=== PATIENT | female | born 1935 | race Caucasian/White ===

== ENCOUNTER → 2017-04-09 | Outpatient (CLI) | payer OTHER ==
[~2017-04-09] MED LIST: ACETAMINOPHEN-1 EAC1 PO; ACETAMINOPHEN325 M1 PO; AMBIEN 10 MG TA10 MG PO; AMBIEN 5 MG TABL5 M1 PO; B-12500 MCG PO; BENICAR20 MG; CELEXA 20 MG TA20 MG PO; CELEXA10 MG PO; CHLORTHALIDONE; CHLORTHALIDONE25 MG PO; CIPRO250 M1 PO; CIPRO500 MG PO; CIPROFLOXACIN500 M1 PO; CLONIDINE PO; CLONIDINE0.1 PO; COLACE100 MG PO; DOXYCYCLINE 10100 MG PO; FENTANYL PA50 MCG/HR TRANSDERM; FLAGYL500 MG PO; FLURBIPROFEN100 MG PO; HYDROCODON-ACE1 EAC2 PO; HYDROCODON-ACE1 EAC8; IRON325 PO; KEFLEX500 MG PO; KLOR-CON; KLOR-CON 1010 MEQ PO; LASIX 20 MG TAB20 MG PO; LEVAQUIN 500 M500 M2 PO; LEVOTHYROXIN0.025 MG PO; LEXAPRO20 MG PO; LISINOPRIL20 MG PO; LOPRESSOR; LOPRESSOR50 PO; LOSARTAN-HCTZ1 EAC3 PO; MEDROLDOSEPACK PO; MIRALAX17 GM PO; MIRALAX255 GM PO; MUCINEX DM ER1 EAC1 PO; Metoprolol Tartrate PO; NEURONTIN 300300 M1 PO; NORCO 10-325 T1 EACH PO; NORVASC 5 MG TAB5 MG PO; NORVASC5 MG PO; ONDANSETRON HCL4 M2 PO; PAMELOR; PANTOPRAZOLE SO40 M1 PO; PHENERGAN 25 MG25 M1 PO; PROZAC; REMERON15 MG PO; SENOKOT-S1 TA2 PO; TOPROL XL50 MG; TRANSDERM-SCOP1 EACH TRANSDERM; VITAMIN B-121000 MCG PO; VITAMIN D1000 UNI1 PO; VITAMIN D1000 UNIT PO; VITAMINC500 PO; XANAX 0.25 MG0.25 MG PO; XANAX 0.5 MG0.5 MG PO; ZESTORETIC 20-1 EAC3 PO; ZOCOR; ZOCOR20 MG PO; ZOFRAN ODT4 MG PO; ZOLPIDEM TARTRA10 MG PO
--- NOTE | 2017-04-15 08:48 | PAINCON ---
[address] [address] PAIN MANAGEMENT CONSULTATION Name: LANCERENNY F Room: [facility] Miller#: [id number] Admission: 04/09/17 Attend Phys: Garo Fields MD Discharge: Date of : 39 Report #: [id number] THIS REPORT FOR: //name// CC: Marisol Francois DATE OF SERVICE: 04/09/2017 CHIEF COMPLAINT: "I have been to the Emergency Room twice since I saw you last." FOLLOWUP HISTORY: The patient is a 81-year-old female who has been followed in the pain clinic because of chronic pain from spinal stenosis. She states that she went to the Emergency Room earlier in March. At that time, she had gone to dinner. After return from dinner, she had an upset stomach. She was experiencing cramping sensation. After going to the bathroom to have a BM, she was unable to remember what happened. Her roommate found her sitting on the toilet. She was nauseated and sweaty. She was then taken to the Emergency Room. At that time, a workup was done and her pacemaker was evaluated, did not feel that was the problem. After remaining for an appropriate amount of time without any significant findings, the patient was released home. A CT of her head showed no acute changes. CT of the abdomen showed only left colon wall thickening suggesting colitis. The patient went to see her primary care physician. At that time, her blood pressure was noted to be quite elevated at systolic from about 210. She was then referred to the Emergency Room again. After evaluation, the patient was given "a pill to take." This slowly decreased her blood pressure. She was then discharged home. States that she has seen her outside [employer] sales and a change in her blood pressure medication regarding metoprolol was made. She has used gabapentin. She has taken it for a number of weeks at the level of 900 mg per day. She does not feel that there is a significant benefit and elects to taper off this medication. ALLERGIES: No known drug allergies. MEDICATIONS: Vitamin B12, gabapentin 300 mg t.i.d., hydrocodone 10/325 one p.o. t.i.d., Synthroid 0.25 mcg, Remeron 15 mg for mood, Zocor 40 mg daily. Zolpidem 10 mg at bedtime, metoprolol 25 mg a.m. and p.m., vitamin B 1000 mcg, vitamin D3 1000 mcg, lisinopril 20/12 at noon. The patient has stopped taking Norvasc. PHYSICAL EXAMINATION: VITAL SIGNS: Blood pressure 144/79, heart rate 68, respiratory rate 16, room air saturation 98%, temperature 97.7, height 5 feet 4 inches, weight 129 pounds, [place] 22[place] [address] PAIN MANAGEMENT CONSULTATION Name: RENNY LUCAS Room: [facility]#: [id number] Admission: 04/09/17 Attend Phys: Garo Fields MD Discharge: Date of : 37 Report #: [id number] HEENT: Unremarkable. Sclerae is nonicteric. Mouth is moist. Head is atraumatic. NECK: Supple, no masses, no bruits. LUNGS: No respiratory distress, normal breath sounds. No wheezing or rhonchi. HEART: Regular rate and rhythm. No murmurs, gallops or rubs. ABDOMEN: Nontender. EXTREMITIES: 5/5 muscle strength in the upper extremity. No clubbing, cyanosis or edema in the lower extremities. NEUROLOGIC: Normal cognitive, oriented x 3, normal speech, low back pain. IMPRESSION: 1. 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 2. Significant spinal canal stenosis at L3-L4 and L4-L5 with limitations of her activities secondary to the pain. 3. Bilateral neural foraminal stenosis at all levels of the lumbar spine. 4. Hypothyroidism. 5. Hypercholesterolemia. RECOMMENDATION: The patient will continue with hydrocodone 10/325 one p.o. t.i.d. She feels that the gabapentin is not providing a significant amount of improvement at 900 mg daily. She would like to taper off this medication. She will decrease to 2 tablets daily for 1 week, then 1 tablet daily and stop use of gabapentin. She will continue to monitor blood pressure. Did have an episode of blood pressure at 210/80, now using metoprolol 25 mg a.m. and p.m. and lisinopril 20/12 at noon. The patient will call us if she has any problems with her medications. We would like to thank you for letting us participate in her care. We hope she continues to improve. <ELECTRONICALLY SIGNED> By: Garo Fields MD 04/15/17 0848 1226 [id number]. González Fields MD /[facility]
== END ==
LOC: M.PC 02:16
DX: M48.061 Spinal stenosis, lumbar region without neurogenic claudication (principal); M47.819 Spondylosis without myelopathy or radiculopathy, site unspecified; E03.9 Hypothyroidism, unspecified; E78.00 Pure hypercholesterolemia, unspecified

== ENCOUNTER → 2017-05-07 | Outpatient (CLI) | payer OTHER ==
--- NOTE | 2017-05-13 10:11 | PAINCON ---
[address] [address] PAIN MANAGEMENT CONSULTATION Name: RENNY LUCAS [id number] Admission: 05/07/17 Attend Phys: Garo Fields MD Discharge: Date of : 37 Report #: [id number] THIS REPORT FOR: //name// CC: Marisol Francois DATE OF SERVICE: 05/07/2017 FOLLOWUP COMPLAINT: Pain in the low back, right side worse than the left. FOLLOWUP HISTORY: The patient is a 81-year-old female, who has been followed in the Pain Clinic because of chronic pain. She would suffer from spinal stenosis. She finds that her current medical regimen of hydrocodone 10 mg t.i.d. has been successful. She has been experiencing some changes in her health. States that she has noted some more frequent hot flashes. She has had some cold and heat intolerance episodes as well. As you recall, she has hypothyroidism and has been treated for this. She thinks that that might be a part of it and is going to follow up with her primary physician. She will have some tests to evaluate her situation. Continues to live with her roommate. She has not had any problems with her pacemaker. Overall, she is able to engage in activities of daily living, she would not be able to without her current medication regimen. Denies any problems with mentating or signs of withdrawal. ALLERGIES: No known drug allergies. MEDICATION REVIEW: Gabapentin 300 mg t.i.d., vitamin D, hydrocodone 10/325 mg 1 p.o. t.i.d., Synthroid 0.25 mcg daily, Remeron 15 mg for mood, Zocor 40 mg daily, zolpidem 10 mg at bedtime, metoprolol 25 mg morning and 25 mg evening, vitamin B 1000 mcg, vitamin D3 1000 mcg, lisinopril 20 mg/12.5 taken at noon. PHYSICAL EXAMINATION: GENERAL: The patient is a well-developed, white female, who appears her stated age. Does not appear in any distress. Oriented x 3. Affect appears appropriate. HEENT: Head is atraumatic. Hearing is good. No oral complaints. No nasal complaints. The patient does not have any obvious respiratory problems. NECK: No JVD. LUNGS: Clear to auscultation. HEART: Regular rate. NEUROLOGIC: Upper extremities and lower extremities are 5/5 and intact. Gait is normal. Does complain of some low back pain with pain in the right side somewhat greater than left. This is in the L4-L5 paraspinous areas. ABDOMEN: Nontender. PAIN CLINIC ASSESSMENT: [place] [address] PAIN MANAGEMENT CONSULTATION Name: RENNY LUCAS Room: [facility]#: [id number] Admission: 05/07/17 Attend Phys: Garo Fields MD Discharge: Date of : 37 Report #: [id number] 1. No significant osteoarthritis or rheumatoid arthritis history. Height 5 feet 4 inches, weight 126 pounds, BMI is 21, blood pressure 154/58, heart rate 61, respiratory rate 16, room air saturation 99%, temperature 98 degrees. Pain intensity 4/10. Risk of fall, the patient is stable, has not fallen in the last 3 months. 2. The patient is not on a blood thinner. 3. History of hypertension. The patient is being treated for hypertension. 4. Opioid therapy greater than 6 weeks. The patient has signed a contract regarding use of opioid medications and their storage. 5. Risk assessment tool evaluating activity, mood, walking, work, relationships, sleep and life enjoyment is 23/70. 6. The patient denies use of narcotics. Does not smoke. IMPRESSION: 1. 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 2. Significant clinical spinal stenosis at L3-L4 and L4-L5 with limitation in her ability in activities secondary to the pain. 3. Bilateral neural foraminal stenosis at all levels of the lumbar spine. 4. Hypothyroidism - the patient has noted some changes in her frequency of hot flashes as well as some cold and heat intolerance changes. She is going to follow up with her primary physician. 5. Hypercholesterolemia. RECOMMENDATIONS: We discussed treatment options with the patient. As described above, the patient has noted some changes in her hot flashes, cold intolerance. She is going to follow up with her PCP in that regard. She will continue with her current medications of hydrocodone 10/325 mg 1 p.o. t.i.d. to help with her pain. She finds that this is quite helpful and enables her to engage in activities of daily living, she would not be able to without their use. She denies that she has any problem with zolpidem at bedtime. This does not cause any problems when she wakes in the morning or causing any confusion. She will continue with her medications and if she should have any concerns, she will call us. A script for her medications for zolpidem 10 mg 1 p.o. at bedtime has been written as well as hydrocodone 90 tablets 1 p.o. t.i.d. for the next month. We would like to thank you for letting us participate in her care. We hope she continues to improve. <ELECTRONICALLY SIGNED> By: Garo Fields MD 05/13/17 1011 [id number] [id number]. González Fields MD /[facility]
== END ==
LOC: M.PC 01:47
DX: M48.061 Spinal stenosis, lumbar region without neurogenic claudication (principal); M47.896 Other spondylosis, lumbar region; E03.9 Hypothyroidism, unspecified; E78.00 Pure hypercholesterolemia, unspecified; Z95.0 Presence of cardiac pacemaker

== ENCOUNTER → 2017-05-15 | Outpatient (CLI) | payer OTHER | LOC: M.CT 11:14 | DX: M48.55XA Collapsed vertebra, not elsewhere classified, thoracolumbar region, initial encounter for fracture (principal); M47.894 Other spondylosis, thoracic region; J43.8 Other emphysema; I10 Essential (primary) hypertension; E78.5 Hyperlipidemia, unspecified; E03.9 Hypothyroidism, unspecified; Z95.0 Presence of cardiac pacemaker; Z87.891 Personal history of nicotine dependence ==

== ENCOUNTER 2017-06-09 10:35 | Inpatient (IN) | payer OTHER ==
[~2017-06-09] VITALS: Ht 162.6 cm; Wt 54.4 kg
--- NOTE | ~2017-06-09 | PROC ---
[address] [address] PROCEDURE REPORT Name: RENNY LUCAS Room: [address] IN M.R.#: [id number] Admission: 06/09/17 Attend Phys: Donya Singh MD Discharge: 06/13/17 Date of : 37 Report #: [id number] THIS REPORT FOR: //name// For GI report, please see Provation report in Peceptive 7 content. By: 1437Medical Records Staff BLAS /JOSE
[~2017-06-09 10:35] MED LIST changes: -AMBIEN 5 MG TABL5 M1 PO; -CELEXA10 MG PO; -CHLORTHALIDONE25 MG PO; -CIPRO500 MG PO; -CLONIDINE0.1 PO; -KLOR-CON 1010 MEQ PO; -MEDROLDOSEPACK PO; -MIRALAX17 GM PO; -MUCINEX DM ER1 EAC1 PO; -NORVASC5 MG PO; -ONDANSETRON HCL4 M2 PO; -PANTOPRAZOLE SO40 M1 PO; -PHENERGAN 25 MG25 M1 PO; -TRANSDERM-SCOP1 EACH TRANSDERM; -VITAMIN D1000 UNI1 PO; -XANAX 0.5 MG0.5 MG PO
[2017-06-09 10:43] VITALS: BP 161/76
[2017-06-09] MEDS ORDERED: NORVASC5 MG PO (10:47)
[2017-06-09 11:08] LABS: ABSOLUTE BASOPHILS 0.1 thou/uL (0.0-0.2); ABSOLUTE LYMPHOCYTES 3.1 thou/uL (0.8-5.3); ABSOLUTE MONOCYTES 1.5 thou/uL (0.0-1.2); ABSOLUTE NEUTROPHILS 8.8 thou/uL (1.6-8.1); BASOPHILS 0.8 %; EOSINOPHILS 0.2 %; HEMATOCRIT 40.2 % (37.0-47.0); HEMOGLOBIN 13.4 gm/dL (12.0-15.0); LYMPHOCYTES 22.9 %; MCH 30.2 pg (26.0-34.0); MCHC 33.4 g/dL (28.0-37.0); MCV 90.6 fL (80.0-100.0); MONOCYTES 11.2 %; MPV 7.1 fl. (7.2-11.1); NUCLEATED RBCS 0 /100WBC; PLATELET COUNT* 330 thou/uL (150-400); POLYS 64.9 %; RBC 4.44 mil/uL (4.20-5.00); RDW-CV 14.9 % (10.5-14.5); WBC 13.5 thou/uL (4.0-11.0)
[2017-06-09 11:15] LABS: CALCIUM 8.3 mg/dL (8.5-10.1); CREATININE 0.8 mg/dL (0.6-1.3)
[2017-06-09 11:19] LABS: ALBUMIN 3.7 g/dL (3.4-5.0); POTASSIUM 2.7 mmol/L (3.5-5.1); TOTAL BILIRUBIN 1.2 mg/dL (<0.1-1.0); TOTAL PROTEIN 6.5 g/dL (6.4-8.2)
[2017-06-09 14:04] LABS: URINE BILIRUBIN NEGATIVE (Negative); URINE BLOOD TRACE (Negative); URINE CLARITY CLEAR; URINE COLOR STRAW; URINE GLUCOSE-RANDOM NEGATIVE (Negative); URINE KETONES TRACE (Negative); URINE LEUKOCYTES-REFLEX NEGATIVE (Negative); URINE NITRITE-REFLEX NEGATIVE (Negative); URINE PROTEIN NEGATIVE (Negative); URINE SPECIFIC GRAVITY <= 1.005 (1.005-1.030); URINE UROBILINOGEN 0.2 E.U./dl (0.2-1.0)
[2017-06-09 15:51] VITALS: BP 169/67
[2017-06-09 16:11] VITALS: BP 169/58
--- NOTE | 2017-06-09 16:23 | NUR ---
PATIENT CAME TO THE FLOOR FROM THE ER IN STABLE CONDITION. ONLY COMPLAINT HAS BEEN NAUSEA SO FAR. VITAL SIGNS STABLE ON ROOM AIR. ADMISSION EDUCATION AND QUESTIONS ANSWERED FOR PATIENT. CALL LIGHT IS IN REACH, WILL CALL FOR HELP WHEN NEEDED. WILL CONTINUE TO MONITOR.
--- NOTE | 2017-06-09 18:18 | NUR ---
PATIENT WAS ADMITTED TODAY FROM THE ER IN STABLE CONDITION. HAS COMPLAINED OF NAUSEA, IV MEDICATION GIVEN. VITAL SIGNS ARE STABLE ON ROOM AIR. PATIENT UP WITH STAND BY ASSIST TO RESTROOM. IV IN RIGHT AC WORKS WELL WITH FLUIDS RUNNING. CALL LIGHT IS IN REACH, WILL CONTINUE TO MONITOR.
[2017-06-09 23:00] VITALS: BP 143/81
[2017-06-10 04:49] VITALS: BP 170/68
[2017-06-10 05:17] LABS: HEMATOCRIT 34.7 % (37.0-47.0); HEMOGLOBIN 12.2 gm/dL (12.0-15.0); MCH 31.5 pg (26.0-34.0); MCV 89.9 fL (80.0-100.0); MPV 7.4 fl. (7.2-11.1); RBC 3.86 mil/uL (4.20-5.00); RDW-CV 14.6 % (10.5-14.5); WBC 9.6 thou/uL (4.0-11.0)
--- NOTE | 2017-06-10 05:22 | NUR ---
PATIENT SLEPT WELL DURING THIS SHIFT. PT UP TO BATHROOM WITH STANDBY. PT WITH DIARRHEA X2 DURING THIS SHIFT. PT WITH FLUIDS INFUSING PER DR ORDER. PT ON ROOM AIR. PT REFUSED SOME SCHEDULED ZOFRAN STATING SHE FELT BETTER WITH THE SCOPOLAMINE PATCH. PT IN ST WITH PAC'S ON HOT TAMALE MAN. PT HAS PACEMAKER, HEART RATE IRREGULAR. FREQUENTLY USED ITEMS AND CALL LIGHT WITHIN REACH. SIDERAILS UPX2 AND BED ALARM ON. WILL CONTINUE TO MONITOR.
[2017-06-10 05:35] LABS: ALBUMIN 3.1 g/dL (3.4-5.0); CALCIUM 7.8 mg/dL (8.5-10.1); CREATININE 0.7 mg/dL (0.6-1.3); POTASSIUM 3.1 mmol/L (3.5-5.1); TOTAL BILIRUBIN 0.9 mg/dL (<0.1-1.0); TOTAL PROTEIN 5.2 g/dL (6.4-8.2)
[2017-06-10 08:30] VITALS: BP 186/87
[2017-06-10 12:25] VITALS: BP 188/86
--- NOTE | 2017-06-10 16:49 | NUR ---
PT.OFF FLOOR FOR TEST. WILL SEE TOMORROW.
[2017-06-10 17:15] VITALS: BP 160/74
--- NOTE | 2017-06-10 17:18 | NUR ---
PATIENT HAS BEEN A/O X 4 THIS SHIFT. PATIENT CONTINUES ON THE DRAGLINE OILER, TRACING SR WITH PAC. CONTINUES ON SCHEDULED ZOFRAN, HAS DENIED PAIN. IV FLUIDS INFUSING ORDERED. IV ANTIBIOTICS GIVEN ORDERED. CALCIUM GLUCONATE GIVEN ORDERED. REPLACED POTASSIUM ORDERED, PATIENT REFUSED 2ND DOSE OF POTASSIUM. PATIENT UP STAND BY ASSIST TO BATHROOM. PATIENT HAD GI CONSULT, ABD ULTRASOUND AND PIPIDA SCAN COMPLETED. HOURLY ROUNDING COMPLETED. CALL LIGHT WITHN REACH. WILL CONTINUE WITH PLAN OF CARE.
[2017-06-11 00:31] VITALS: BP 164/83
[2017-06-11 04:06] VITALS: BP 124/77
[2017-06-11 04:33] LABS: HEMATOCRIT 33.4 % (37.0-47.0); HEMOGLOBIN 11.8 gm/dL (12.0-15.0); MCH 32.1 pg (26.0-34.0); MCHC 35.3 g/dL (28.0-37.0); MCV 90.8 fL (80.0-100.0); MPV 7.7 fl. (7.2-11.1); RBC 3.68 mil/uL (4.20-5.00); RDW-CV 14.6 % (10.5-14.5); WBC 8.8 thou/uL (4.0-11.0)
[2017-06-11 05:06] LABS: CREATININE 0.7 mg/dL (0.6-1.3); TOTAL BILIRUBIN 1.1 mg/dL (<0.1-1.0); TOTAL PROTEIN 4.9 g/dL (6.4-8.2)
[2017-06-11 05:13] LABS: POTASSIUM 2.8 mmol/L (3.5-5.1)
[2017-06-11 08:30] VITALS: BP 175/83
[2017-06-11 16:09] VITALS: BP 151/86
--- NOTE | 2017-06-11 17:48 | NUR ---
PT IS ALERT AND ORIENTED X4. PT HAS BEEN IRREGULAR WITH SR WITH PVCS ON TELE. THERE IS A R. AC WITH NS RUNNING AT 100 ML/HR. PT HAD A K LEVEL OF 2.8. PT IS ON ELECTROLYTE PROTOCOL, AND IS RECEIVING 6 UNITS OF POTASSIUM. PT IS ON A CLEAR DIET DUE TO NAUSEA. PT STATES ZOFRAN IS NOT HELPING WITH NAUSEA. PT IS SCHEDULED FOR A COLONOSCOPY FOR 06/12/17, PT IS TAKING DULCOLAX AND MIRALAX. PT IS C/O MIRALAX IS TOO SWEET, DILUTED WITH WATER AND ICE. PT IS DRINKING MIRALAX SLOWLY STILL, PT ENCOURAGED TO DRINK MORE. PT C/O PAIN IN BACK ONCE DURING SHIFT, HYDROCODONE ADMINISTERED AND PT STATED PAIN WAS A 0/10. FALL RISK PRECAUTIONS IN PLACE, WILL CONTINUE TO MONITOR.
--- NOTE | 2017-06-11 18:48 | NUR ---
I HAVE REVIEWED THE DOCUMENTATION BY ZAN AREVALO, STUDENT NURSE. I AGREE WITH THE DOCUMENTED INTERVENTIONS AND DOCUMENTED ASSESSMENTS.
--- NOTE | 2017-06-11 19:06 | NUR ---
PATIENT HAVING A DIFFICULT TIME DRINKING MIRALAX PREP FOR COLONOSCOPY IN THE AM. CALL PLACED TO DR HINOJOSA REGARDING INABILITY TO DRINK PREP. NIGHT NURSE INFORMED OF THE ABOVE.
[2017-06-11 20:00] VITALS: BP 176/69
[2017-06-12] VITALS (8 sets, daily range): BP systolic 146–192; BP diastolic 54–81
--- NOTE | 2017-06-12 06:47 | NUR ---
PT SLEPT OFF AND ON OVERNIGHT, TAKING 700ML OF MIRALAX THIS SHIFT BEFORE 0200. UP WITH SBA TO BSC HAVING WATERY BROWN STOOL WITH SEDIMENT. DULCOLAX TABS GIVEN THIS MORNING. LAB NOT ABLE TO GET BLOOD WITH EARLY AM LAB DRAW AND WILL ATTEMPT AGAIN. RAC IVF INFUSING, ABX GIVEN AND K REPLACED IV. TELE SINUS RHYTHM, PVC, PAC, PACED AT TIMES. PHENERGAN GIVEN AT HS FOR NAUSEA, PT SEEMED TO BECOME MORE CONFUSED AFTER RECEIVING THIS. ZOFRAN GIVEN THEREAFTER FOR NAUSEA PRN. PO PAIN MED GIVEN X2 FOR CO BACK PAIN WITH FAIR RELIEF. NPO FOR EGD, COLONSCOPY THIS AFTERNOON. ABLE TO USE CALL LITE AND MAKE NEEDS KNOWN, BED ALARM ON FOR SAFETY.
[2017-06-12 08:19] LABS: HEMOGLOBIN 10.6 gm/dL (12.0-15.0); MCH 31.5 pg (26.0-34.0); MCHC 34.3 g/dL (28.0-37.0); MCV 91.6 fL (80.0-100.0); MPV 7.7 fl. (7.2-11.1); RBC 3.38 mil/uL (4.20-5.00); RDW-CV 14.9 % (10.5-14.5); WBC 8.8 thou/uL (4.0-11.0)
[2017-06-12 08:32] LABS: CALCIUM 7.7 mg/dL (8.5-10.1); CREATININE 0.8 mg/dL (0.6-1.3); MAGNESIUM 1.6 mg/dL (1.8-2.4); POTASSIUM 3.1 mmol/L (3.5-5.1); TOTAL BILIRUBIN 0.6 mg/dL (<0.1-1.0)
--- NOTE | 2017-06-12 10:50 | NUR ---
PT TAKEN TO PACU FOR COLONOSCOPY AND EGD VIA WHEELCHAIR. CHART SENT WITH PACU STAFF.
--- NOTE | 2017-06-12 17:04 | NUR ---
VISITED WITH PT.AND EXPLAINED ROLE OF CM. SHE HOPES TO GO HOME TOMORROW. LIVES WITH FRIEND,VENANCIO. SHE SAID THEY ARE JUST FRIENDS AND SHARE LIVING EXPENSES. THEY RENT A DUPLEX HER SON OWNS. THEY HAVE LIVED TOGETHER FOR 10 YRS. SHE HAS A WLAKER AND CANE BUT DOES NOT NEED TO USE THEM. VENANCIO COOKS AND HELPS WITH LAUNDRY. HE DRIVES, PT.DOES NOT . THEY HAVE A LADY THAT COMES 2X/MONTH TO CLEAN. SHE WANTED [facility] NUMBER TO SEE IF THEY WOULD QUALIFY FOR MEDICATION ASSISTANCE. GAVE NUMBER AND ADDRESS TO HER. WILL MOST LIKELY HAVE NO DISCHARGE NEEDS.
--- NOTE | 2017-06-12 18:22 | NUR ---
PT IS ALERT AND ORIENTED X 4, SOMETIMES FORGETFUL. PT HAD AN EGD AND COLONOSCOPY COMPLETED TODAY. PT HAS ESOPHAGITIS AND A SMALL HIATAL HERNIA. PT HAD A CHEST X-RAY COMPELTED, FINDINGS WERE NORMAL. PT HAD POTASSIUM DRAWN, LEVEL AT 3.1, 2 UNITS OF POTASSIUM GIVEN. PT IS ON REGULAR DIET AND HAS NOT C/O OF NAUSEA. FALL RISK PRECAUTIONS IN PLACE. WILL CONTINUE TO MONITOR.
--- NOTE | 2017-06-12 18:43 | NUR ---
I HAVE REVIEWED THE DOCUMENTATION BY ZAN AREVALO, STUDENT NURSE. I AGREE WITH THE ABOVE DOCUMENTED INTERVENTIONS AND ASSESSMENTS.
[2017-06-13 03:30] VITALS: BP 157/74
[2017-06-13 06:15] LABS: HEMATOCRIT 28.1 % (37.0-47.0); HEMOGLOBIN 9.7 gm/dL (12.0-15.0); MCH 31.7 pg (26.0-34.0); MCHC 34.4 g/dL (28.0-37.0); MCV 91.9 fL (80.0-100.0); MPV 7.9 fl. (7.2-11.1); RBC 3.05 mil/uL (4.20-5.00); RDW-CV 15.1 % (10.5-14.5); WBC 5.7 thou/uL (4.0-11.0)
[2017-06-13 06:29] LABS: CALCIUM 7.4 mg/dL (8.5-10.1); CREATININE 0.8 mg/dL (0.6-1.3); POTASSIUM 3.2 mmol/L (3.5-5.1)
--- NOTE | 2017-06-13 07:27 | NUR ---
PT SLEPT ON AND OFF THROUGH NIGHT. ASSESSMENT DOCUMENTED. MEDS GIVEN PER E-JUN. PAIN MEDS GIVEN PER E-MAR. IV PATENT, FLUIDS INFUSING. PT REPORTED HAVING A COUGH, COUGH NOT HEARD. PT WANTED COUGH DROPS BUT STATED SHE COULD NOT USE THE [facility] COUGH DROPS BECAUSE THEY ARE "TOO SWEET". PT STATED THAT SHE FEELS LIKE SHE IS GETTING SICK FROM BEING HERE, STATING SHE IS BECOMING MORE CONGESTED. WILL CONTINUE WITH PLAN OF CARE.
[2017-06-13 09:15] VITALS: BP 145/67
[2017-06-13] MEDS ORDERED: CIPRO500 MG PO (10:44)
[2017-06-13] MEDS ORDERED: TRANSDERM-SCOP1 EACH TRANSDERM (10:44)
[2017-06-13] MEDS ORDERED: PANTOPRAZOLE SO40 M1 PO (10:44)
[2017-06-13] MEDS ORDERED: MIRALAX17 GM PO (10:44)
[2017-06-13 11:58] VITALS: BP 145/67
--- NOTE | 2017-06-13 12:31 | NUR ---
PATIENT DISCHARGED TO HOME WITH SON AT THIS TIME, PATIENT TAKEN OUT WITH NURSING STAFF VIA WHEELCHAIR. VERBALIZES UNDERSTANDING OF PAPERWORK AND SCRIPTS. PO POTASSIUM GIVEN THIS AM PER PROTOCOL, DR. GUSTAFSON AWARE THAT PATIENT ONLY HAD ONE DOSE. SCHED IV ABX INFUSED THIS AM ORDERED. IV DC'D.
--- NOTE | 2017-06-15 11:02 | S ---
[place] [address] SURGICAL PATH RPT PROCEDURE Name: LANCETASIARENNY F Room: [address] IN M.R.#: [id number] Admission: 06/09/17 Date of : 39 Discharge: 06/13/17 Report #: [id number] Path Case #: [id number] PATHOLOGY REPORT COLLECTION DATE: 06/12/2017 RECEIVED DATE: 06/12/2017 SUBMITTING PHYS: Dr. Yaima Galdamez OTHER PHYS: Dr. Donya Chisholm SPECIMEN(S) RECEIVED: A.Random colon * * * * * * * * * * * * FINAL DIAGNOSIS: Colonic mucosa "random colon biopsies": - No obvious diagnostic changes. - There is no evidence of acute cryptitis, granulomas, adenomatous changes of microscopic colitis or malignancy. (SHA:mml; 06/15/2017) PATHOLOGIST: Efren Miller M.D. REPORT ELECTRONICALLY SIGNED BY: Efren Miller M.D. DATE/TIME: 06/15/2017 11:01 * * * * * * * * * * * * GROSS PATHOLOGY: Received in formalin labeled "Renny Deal random colon biopsies for colitis," and additionally labeled on the requisition as "biopsy," are 6 segments of phelps soft tissue measuring 1.8 x 1.1 x 0.2 cm in aggregate dimensions and ranging from 0.2 to 0.5 cm in maximum dimension. The specimen is submitted entirely in cassette A1. (TSD; 06/12/2017) CLINICAL HISTORY: None provided INITIAL CPT CODE(S): A; 87025 Professional services performed by [facility] at [facility] [address] [place] [address] Technical services performed by [facility] at [address] [place] [address], [facility] [address], [place] [address]. [place] [address] SURGICAL PATH RPT PROCEDURE Name: LANCERENNY Gurvinder Room: [address]#: [id number] Admission: 06/09/17 Date of : 39 Discharge: 06/13/17 Report #: [id number] Path Case #: [id number] [facility] [address] [place] [address] PHONE: [phone] DIRECTOR: Aravind Patel M.D. * * * END OF REPORT * * *
[2017-06-16] MEDS ORDERED: NORCO 10-325 T1 EACH PO (11:07)
[2017-06-16] MEDS ORDERED: ZOLPIDEM TARTRA10 MG PO (11:17)
--- NOTE | 2017-06-29 15:02 | CON ---
[address] [address] CONSULTATION Name: LANCERENNY F Room: [address] IN M.R.#: [id number] Admission: 06/09/17 Attend Phys: Donya Singh MD Discharge: 06/13/17 Date of : 39 Report #: [id number] THIS REPORT FOR: //name// CC: Donya Chisholm DO DICTATED BY: Yaa Urbina [facility] DATE OF SERVICE: 06/10/2017 Please note at the time of this dictation, the patient was seen and physically examined by myself. REASON FOR CONSULTATION: Abdominal pain, nausea and vomiting. HISTORY OF PRESENT ILLNESS: This is a pleasant 81-year-old female, who is well known to our practice, who started having vomiting, nausea and some diarrhea that started on Thursday. They then persisted over the weekend and then she began having some abdominal discomfort yesterday. She felt like when she would eat, anything would go straight through her and she was having a lot of pain and a lot of vomiting. She really has not had anything significantly to eat since Thursday before all of this started. The patient does have a long history of having chronic narcotic use due to chronic pain and she takes medication for this and has had issues with her bowels and that she has constipation. The patient underwent a colonoscopy in 01/2016 that showed nonthrombosed hemorrhoids and some scar tissue in the transverse and splenic flexure. She also had an EGD in 07/2011, grade A esophagitis and mucosal breaks and a hiatal hernia. She states that she just recently quit taking her pain medicine on Thursday and started some Senokot, which seemed to help with her bowels moving, but also she was taking an iron supplement as well. The patient was noted to be in the hospital for a couple of days the end of March with similar presentation and was sent home, but not on a very good regular bowel regimen. She denies any hematochezia or hematemesis at this time. ALLERGIES: No known drug allergies. MEDICATIONS: From home include Lopressor, vitamin D, Zestoretic, Norvasc, Zocor, Synthroid, Xanax, and [place] 10/325 and an iron pill. PAST MEDICAL HISTORY: Hypertension, hyperlipidemia, chronic back pain, anxiety, depression, thyroid issues. PAST SURGICAL HISTORY: She has a pacemaker. FAMILY HISTORY: [place] [address] CONSULTATION Name: RENNY LUCAS Room: [address]#: [id number] Admission: 06/09/17 Attend Phys: Donya Singh MD Discharge: 06/13/17 Date of : 39 Report #: [id number] SOCIAL HISTORY: Denies any tobacco use, alcohol on special occasions, and denies any illegal drug use. REVIEW OF SYSTEMS: Twelve-point review of systems is essentially negative except what is mentioned in the HPI. PHYSICAL EXAMINATION: VITAL SIGNS: Temperature 36.7, pulse 76, respirations 16, blood pressure 186/87. HEART: Regular rate and rhythm. LUNGS: Clear, but slightly diminished. ABDOMEN: Soft, positive bowel sounds in all 4 quadrants with tenderness across the transverse, left splenic flexure and slightly in the left upper quadrant area as well. LABORATORY DATA: Hemoglobin 12.12, hematocrit 34.7, white count on admission was 13.5 and she is now 9.6, platelets is 279. Sodium 138, potassium 3.1, chloride 101, CO2 28, BUN is 9, creatinine is 0.7, a GFR of 81, glucose is 121. LFTs are completely normal. CT of the abdomen and pelvis showed diffuse increase enhancement along the colonic mucosa with diffuse colitis noted. Ultrasound of the abdomen showed fatty liver and thickening of her gallbladder with a Phrygian cap across the upper gallbladder, CBD was normal and some pericholecystic fluid noted as well. IMPRESSION: 1. Abdominal pain. 2. Nausea and vomiting. 3. 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 4. Hypokalemia. 5. Leukocytosis. PLAN: 1. Hepatobiliary scan. 2. MiraLax daily. 3. Labs in the a.m. CBC and CMP. 4. Continue her clear liquids. 5. Continue antibiotics. 6. We will see how she does with her nausea and vomiting and her clear liquids to see if she may tolerate a prep on for a colonoscopy on Thursday. Thank you for allowing us to participate in this patient's care. Please do not hesitate to call with any questions in regard to this consult. ADDENDUM [address] [address] CONSULTATION Name: RENNY LUCAS Room: [address] IN M.R.#: [id number] Admission: 06/09/17 Attend Phys: Donya Singh MD Discharge: 06/13/17 Date of : 39 Report #: [id number] I have personally seen and examined the patient and reviewed labs and imaging. The patient with history of chronic constipation due to pain meds, who presents with abdominal pain, nausea and vomiting. She also has leukocytosis. Her symptoms of abdominal pain and leukocytosis may be secondary to colonic ischemia. We will prep and consider endoscopic evaluation on Thursday. The patient is agreeable with plan. <ELECTRONICALLY SIGNED> By: Yaima Galdamez MD 06/29/17 1502 1034 [id number] Galdamez MD /nt
--- NOTE | 2017-06-29 15:05 | CON ---
[address] [address] CONSULTATION Name: RENNY LUCAS Room: [address] IN M.R.#: [id number] Admission: 06/09/17 Attend Phys: Donya Singh MD Discharge: 06/13/17 Date of : 37 Report #: [id number] THIS REPORT FOR: //name// CC: Donya Chisholm DATE OF SERVICE: 06/10/2017 ADDENDUM I have personally seen and examined the patient and reviewed labs and imaging. The patient with history of chronic constipation due to pain meds, who presents with abdominal pain, nausea and vomiting. She also has leukocytosis. Her symptoms of abdominal pain and leukocytosis may be secondary to colonic ischemia. We will prep and consider endoscopic evaluation on Thursday. The patient is agreeable with plan. <ELECTRONICALLY SIGNED> By: Yaima Galdamez MD 06/29/17 1505 1602 [id number] Galdamez MD /nt
[2017-07-14] MEDS ORDERED: NORCO 10-325 T1 EACH PO (08:12)
[2017-07-14] MEDS ORDERED: ZOLPIDEM TARTRA10 MG PO (08:12)
[2017-08-11] MEDS ORDERED: CLONIDINE0.1 PO (10:02)
[2017-08-11] MEDS ORDERED: XANAX 0.5 MG0.5 MG PO (10:02)
[2017-08-11] MEDS ORDERED: NORCO 10-325 T1 EACH PO (10:12)
[2017-08-11] MEDS ORDERED: ZOLPIDEM TARTRA10 MG PO (10:13)
[2017-09-08] MEDS ORDERED: NORCO 10-325 T1 EACH PO ×2 (08:24→11:07)
[2017-09-08] MEDS ORDERED: ZOLPIDEM TARTRA10 MG PO ×2 (11:21→11:22)
[2017-10-06] MEDS ORDERED: ZOLPIDEM TARTRA10 MG PO (08:41)
[2017-10-06] MEDS ORDERED: NORCO 10-325 T1 EACH PO (08:41)
[2017-10-06] MEDS ORDERED: AMBIEN 5 MG TABL5 M1 PO (11:36)
[2017-10-06] MEDS ORDERED: CELEXA10 MG PO (11:57)
[2017-11-05] MEDS ORDERED: NORCO 10-325 T1 EACH PO (08:10)
[2017-11-05] MEDS ORDERED: AMBIEN 5 MG TABL5 M1 PO (08:10)
[2017-12-08] MEDS ORDERED: AMBIEN 5 MG TABL5 M1 PO (08:38)
[2017-12-08] MEDS ORDERED: NORCO 10-325 T1 EACH PO (08:38)
[2017-12-08] MEDS ORDERED: PANTOPRAZOLE SO40 M1 PO (08:38)
[2018-01-05] MEDS ORDERED: AMBIEN 5 MG TABL5 M1 PO (08:13)
[2018-01-05] MEDS ORDERED: PANTOPRAZOLE SO40 M1 PO (08:13)
[2018-01-05] MEDS ORDERED: NORCO 10-325 T1 EACH PO (08:13)
[2018-02-02] MEDS ORDERED: NORCO 10-325 T1 EACH PO (08:13)
[2018-02-02] MEDS ORDERED: AMBIEN 5 MG TABL5 M1 PO (08:13)
[2018-02-02] MEDS ORDERED: VITAMIN D1000 UNI1 PO (09:50)
[2018-02-02] MEDS ORDERED: KLOR-CON 1010 MEQ PO (09:55)
[2018-02-02] MEDS ORDERED: MEDROLDOSEPACK PO (10:15)
== END 2017-06-13 12:34 | disposition home or self-care (01) | DRG 640 ==
LOC: M.ERS 10:35 → M.TBA-ER 13:16 → M.3W 13:16
PROVIDERS: Nurse Practitioner Adult Health; Nurse Practitioner Family; ADMIT Internal Medicine
PROC: 0DBE8ZX Excision of Large Intestine, Via Natural or Artificial Opening Endoscopic, Diagnostic (ICD-10-PCS; principal; 2017-06-12)
PROC: 0D758ZZ Dilation of Esophagus, Via Natural or Artificial Opening Endoscopic (ICD-10-PCS; principal; 2017-06-12)
DX: E86.0 Dehydration (principal); K55.039 Acute (reversible) ischemia of large intestine, extent unspecified; E44.1 Mild protein-calorie malnutrition; I10 Essential (primary) hypertension; E78.5 Hyperlipidemia, unspecified; F41.9 Anxiety disorder, unspecified; M54.5 Low back pain; K21.0 Gastro-esophageal reflux disease with esophagitis; K44.9 Diaphragmatic hernia without obstruction or gangrene; K22.2 Esophageal obstruction; K64.8 Other hemorrhoids; E87.6 Hypokalemia; F32.9 Major depressive disorder, single episode, unspecified; K59.03 Drug induced constipation; T40.605A Adverse effect of unspecified narcotics, initial encounter; Z95.0 Presence of cardiac pacemaker; Z79.899 Other long term (current) drug therapy; Y92.89 Other specified places as the place of occurrence of the external cause

== ENCOUNTER 2017-06-16 15:45 | Inpatient (IN) | payer OTHER ==
[~2017-06-16] VITALS: Ht 162.6 cm; Wt 56.7 kg
[~2017-06-16 15:45] MED LIST changes: -AMBIEN 5 MG TABL5 M1 PO; -CELEXA10 MG PO; -CHLORTHALIDONE25 MG PO; -CLONIDINE0.1 PO; -KLOR-CON 1010 MEQ PO; -MEDROLDOSEPACK PO; -MUCINEX DM ER1 EAC1 PO; -ONDANSETRON HCL4 M2 PO; -PHENERGAN 25 MG25 M1 PO; -VITAMIN D1000 UNI1 PO; -XANAX 0.5 MG0.5 MG PO
[2017-06-16 16:02] VITALS: BP 210/98
[2017-06-16 16:37] LABS: URINE BILIRUBIN NEGATIVE (Negative); URINE BLOOD NEGATIVE (Negative); URINE CLARITY CLEAR; URINE COLOR STRAW; URINE GLUCOSE-RANDOM NEGATIVE (Negative); URINE KETONES 1+ (Negative); URINE LEUKOCYTES-REFLEX NEGATIVE (Negative); URINE NITRITE-REFLEX NEGATIVE (Negative); URINE PROTEIN NEGATIVE (Negative); URINE UROBILINOGEN 0.2 E.U./dl (0.2-1.0)
[2017-06-16 17:23] LABS: ABSOLUTE LYMPHOCYTES 0.5 thou/uL (0.8-5.3); ABSOLUTE MONOCYTES 0.4 thou/uL (0.0-1.2); ABSOLUTE NEUTROPHILS 1.9 thou/uL (1.6-8.1); BASOPHILS 0.9 %; EOSINOPHILS 0.7 %; HEMATOCRIT 31.3 % (37.0-47.0); HEMOGLOBIN 10.8 gm/dL (12.0-15.0); LYMPHOCYTES 18.8 %; MCH 31.3 pg (26.0-34.0); MCHC 34.5 g/dL (28.0-37.0); MCV 90.8 fL (80.0-100.0); MONOCYTES 12.9 %; MPV 7.7 fl. (7.2-11.1); NUCLEATED RBCS 0 /100WBC; PLATELET COUNT* 197 thou/uL (150-400); POLYS 66.7 %; RBC 3.44 mil/uL (4.20-5.00); RDW-CV 15.2 % (10.5-14.5); WBC 2.8 thou/uL (4.0-11.0)
[2017-06-16 17:33] LABS: CALCIUM 7.6 mg/dL (8.5-10.1); CREATININE 0.7 mg/dL (0.6-1.3); POTASSIUM 3.1 mmol/L (3.5-5.1)
[2017-06-16 17:37] LABS: ALBUMIN 3.1 g/dL (3.4-5.0); TOTAL BILIRUBIN 0.6 mg/dL (<0.1-1.0); TOTAL PROTEIN 5.7 g/dL (6.4-8.2)
[2017-06-16 18:53] VITALS: BP 188/84
--- NOTE | 2017-06-16 18:54 | NUR ---
CORRECTION ON DISCHARGE SUMMARY: PT WENT TO [address] ON [address] WITH TECH.
[2017-06-16 19:07] VITALS: BP 180/71
--- NOTE | 2017-06-16 19:29 | NUR ---
PATIENT ADM TO UNIT, ON FLOOR AT 1850. PATIENT IS A&OX4, ROOM AIR, UP AD IFTIKHAR, STEADY GAIT. PATIENT ORIENTED TO ROOM, ALL BELONGINGS WITHIN REACH, CALL LIGHT AT BEDSIDE. ADM ASSESSMENT LEFT FOR NOC NURSE, REPORT GIVEN. NO OTHER CONCERNS AT THIS TIME. APPROPRIATE AND COOPORATIVE WITH CARE.
[2017-06-16 22:22] VITALS: BP 187/93
[2017-06-17 03:25] VITALS: BP 154/52
[2017-06-17 05:00] LABS: ABSOLUTE LYMPHOCYTES 1.1 thou/uL (0.8-5.3); ABSOLUTE MONOCYTES 0.5 thou/uL (0.0-1.2); ABSOLUTE NEUTROPHILS 1.6 thou/uL (1.6-8.1); BASOPHILS 0.5 %; EOSINOPHILS 1.2 %; HEMATOCRIT 29.6 % (37.0-47.0); HEMOGLOBIN 10.2 gm/dL (12.0-15.0); LYMPHOCYTES 34.1 %; MCH 31.5 pg (26.0-34.0); MCHC 34.5 g/dL (28.0-37.0); MCV 91.5 fL (80.0-100.0); MONOCYTES 16.2 %; MPV 7.7 fl. (7.2-11.1); NUCLEATED RBCS 0 /100WBC; PLATELET COUNT* 206 thou/uL (150-400); RBC 3.23 mil/uL (4.20-5.00); RDW-CV 15.5 % (10.5-14.5); WBC 3.2 thou/uL (4.0-11.0)
[2017-06-17 05:28] LABS: ALBUMIN 2.8 g/dL (3.4-5.0); CALCIUM 7.4 mg/dL (8.5-10.1); CREATININE 0.7 mg/dL (0.6-1.3); POTASSIUM 3.5 mmol/L (3.5-5.1); TOTAL BILIRUBIN 0.4 mg/dL (<0.1-1.0); TOTAL PROTEIN 4.9 g/dL (6.4-8.2)
--- NOTE | 2017-06-17 06:03 | NUR ---
PATIENT ADMISSION HISTORY AND ASSESSMENT WAS COMPLETED CHARTED. IV FLUIDS WERE STARTED AT 100 ML/HR. PATIENT WAS GIVEN PAIN AND NAUSEA MEDICINE ONCE THIS SHIFT. PATIENT HAS BEEN NPO SINCE MIDNIGHT FOR CT OF ABDOMEN. WILL CONTINUE TO MONITOR.
[2017-06-17 08:25] VITALS: BP 171/71
--- NOTE | 2017-06-17 13:54 | NUR ---
CM SPOKE TO THE PATIENT TO DISCUSS HOME SITUATION, DISCHARGE PLANNING, AND TO INFORM OF THE ROLE OF CM. PATIENT ALERT AND ORIENTED. PATIENT PAYS SOMEONE TO CLEAN THE HOME. PATIENT DOES NOT DRIVE. PATIENT RESIDES AT HOME WITH FRIEND VENANCIO, AND HE PREPARES MEALS. PATIENT OWNS A WALKER AND A CANE, BUT DOES NOT USE THEM. PATIENT HAS NO HX OF OR SNF, AND PLANS TO RETURN HOME AT D/C. CM WILL REMAIN AVIALABLE TO ASSIST AND FOLLOW NEEDED.
[2017-06-17 16:56] VITALS: BP 170/76
--- NOTE | 2017-06-17 17:34 | NUR ---
PATIENT RESTING IN BED. PATIENT IS UP IN ROOM AD IFTIKHAR. PATIENTHAS HAD COMPLAINTS OF BACK PAIN, TREATED ADEQUATELY WITH HYDROCODONE. PATIENT HAS HAD COMPLAINTS OF NAUSEA, TREATED ADEQUATELY WITH ZOFRAN. PATIENT IS TOLERATING CLEARS LIQUIDS. PATIENT SCHEDULED FOR GASTRIC EMPTYING TEST IN AM. PATIENT DENIES ANY NEEDS AT THIS TIME. CALL LIGHT WITHIN REACH. WILL CONTINUE TO MONITOR.
--- NOTE | 2017-06-17 17:53 | EKG ---
[place] [address] ELECTROCARDIOGRAM REPORT Name: RENNY LUCAS Room: [address] ADM IN M.R.#: [id number] Admission: 06/16/17 Attend Phys: Neris Whitfield Discharge: Date of : 39 Report #: [id number] THIS REPORT FOR: //name// [facility] ED Test Date: 2017-06-16 Test Time: 16:38:28 Pat Name: RENNY LUCAS Department: Room: [facility] Gender: Dryer Feeder: John GALVIN : 1935 Requested By: Johnnie Kennedy Order Number: [id number] MD: Kev Fong Measurements Intervals [place] Rate: 88 P: -30 OK: 160 QRS: 61 QRSD: 90 T: 53 QT: 399 QTc: 483 Interpretive Statements Sinus rhythm with frequent pzc's Low voltage, extremity leads Borderline prolonged QT interval Compared to ECG 03/31/2017 15:05:07 Low QRS voltage now present Electronically Signed On 06-17-2017 17:52:53 CDT by Kev Fong [email or web address] <ELECTRONICALLY SIGNED> By: Kev Fong MD, [facility] 06/17/17 1752 1638 1638 Kev Fong MD, [facility] /EPI
[2017-06-18 05:08] LABS: ABSOLUTE LYMPHOCYTES 1.2 thou/uL (0.8-5.3); ABSOLUTE MONOCYTES 0.4 thou/uL (0.0-1.2); ABSOLUTE NEUTROPHILS 1.5 thou/uL (1.6-8.1); BASOPHILS 0.5 %; EOSINOPHILS 1.5 %; HEMATOCRIT 29.2 % (37.0-47.0); HEMOGLOBIN 10.3 gm/dL (12.0-15.0); LYMPHOCYTES 37.3 %; MCH 31.8 pg (26.0-34.0); MCHC 35.2 g/dL (28.0-37.0); MCV 90.1 fL (80.0-100.0); MONOCYTES 13.4 %; MPV 7.5 fl. (7.2-11.1); NUCLEATED RBCS 0 /100WBC; PLATELET COUNT* 208 thou/uL (150-400); POLYS 47.3 %; RBC 3.24 mil/uL (4.20-5.00); RDW-CV 15.1 % (10.5-14.5); WBC 3.2 thou/uL (4.0-11.0)
[2017-06-18 05:36] LABS: ALBUMIN 2.7 g/dL (3.4-5.0); CALCIUM 7.2 mg/dL (8.5-10.1); CREATININE 0.7 mg/dL (0.6-1.3); TOTAL BILIRUBIN 0.6 mg/dL (<0.1-1.0); TOTAL PROTEIN 5.1 g/dL (6.4-8.2)
[2017-06-18 05:44] LABS: POTASSIUM 2.8 mmol/L (3.5-5.1)
--- NOTE | 2017-06-18 05:48 | NUR ---
PATIENT SLEPT MOST OF THE NIGHT. IV FLUIDS CONTINUE TO INFUSE AT 100 ML/HR. PATIENT HAS BEEN NPO SINCE MIDNIGHT FOR A GATSRIC EMPTYING TEST. NAUSEA MEDICINE WAS GIVEN ONCE THIS SHIFT. PATIENT HAS A CRITICAL POTASSIUM OF 2.8 THIS MORNING WILL REPLACE PER PROTOCOL. WILL CONTINUE TO MONITOR.
[2017-06-18 06:18] LABS: PREALBUMIN 14.6 mg/dL (18.0-35.7)
[2017-06-18 06:21] LABS: ESR (SEDRATE) 8 mm/hr (0-30)
--- NOTE | 2017-06-18 15:57 | NUR ---
WAS ASKED TO OBTAIN PRIOR AUTH FOR PT'S SCOPOLAMINE PATCH. FAXED IN PRIOR AUTH FORM TO [facility] AND ASKED THAT IT BE EXPEDITED. NURSE MADE AWARE
[2017-06-18 16:41] VITALS: BP 148/62
--- NOTE | 2017-06-18 18:14 | NUR ---
PATIENT RESTING IN BED. PATIENT HAS GASTRIC EMPTYING TEST THIS AM WITHOUT INCIDENT. PATIENT IS TOLERATING REGULAR DIET THIS EVENING. PATIENT DID HAVE COMPLAINTS OF NAUSEA, NO VOMITING, TREATED ADEQUATELY WITH ZOFRAN. PATIENT IS UP STANDBY ASSIST IN ROOM. PATIENT DENIES ANY FURTHER NEEDS AT THIS TIME. CALL LIGHT WITHIN REACH. WILL CONTINUE TO MONITOR.
[2017-06-18 20:20] VITALS: BP 181/66
[2017-06-19 00:02] VITALS: BP 135/63
[2017-06-19 04:30] LABS: ABSOLUTE EOSINOPHILS 0.1 thou/uL (0.0-0.7); ABSOLUTE LYMPHOCYTES 1.4 thou/uL (0.8-5.3); ABSOLUTE MONOCYTES 0.4 thou/uL (0.0-1.2); BASOPHILS 0.5 %; EOSINOPHILS 2.2 %; HEMATOCRIT 29.3 % (37.0-47.0); HEMOGLOBIN 10.1 gm/dL (12.0-15.0); LYMPHOCYTES 35.5 %; MCH 31.8 pg (26.0-34.0); MCHC 34.3 g/dL (28.0-37.0); MCV 92.7 fL (80.0-100.0); MONOCYTES 10.9 %; MPV 7.7 fl. (7.2-11.1); NUCLEATED RBCS 0 /100WBC; PLATELET COUNT* 218 thou/uL (150-400); POLYS 50.9 %; RBC 3.17 mil/uL (4.20-5.00); RDW-CV 15.5 % (10.5-14.5)
[2017-06-19 05:05] LABS: ALBUMIN 2.8 g/dL (3.4-5.0); CALCIUM 7.9 mg/dL (8.5-10.1); CREATININE 0.7 mg/dL (0.6-1.3); TOTAL BILIRUBIN 0.6 mg/dL (<0.1-1.0); TOTAL PROTEIN 5.1 g/dL (6.4-8.2)
--- NOTE | 2017-06-19 05:49 | NUR ---
PT SLEPT MOST OF SHIFT. ASSESSMENT DOCUMENTED. MEDS GIVEN PER E-MAR. IV PATENT. PAIN MEDS GIVEN PER E-MAR FOR BACK PAIN. PT CONCERNED ABOUT NO ONE TREATING HER "COLD". PT DID NOT WANT TO TAKE PRN SUDAFED DUE TO HX OF ELEVATED BP, STATING SHE WOULD WILLING TO TAKE SUGESTIONS FOR OTHER MEDICATIONS. PT DID NOT WANT THIS TO PROLONG HER DISCHARGE STATING SHE HOPES SHE GETS TO GO HOME TODAY. WILL CONTINUE WITH PLAN OF CARE.
[2017-06-19 07:45] VITALS: BP 148/61
--- NOTE | 2017-06-19 10:08 | CON ---
[address] [address] CONSULTATION Name: RENNY LUCAS Room: [address] IN M.R.#: [id number] Admission: 06/16/17 Attend Phys: Neris Whitfield Discharge: Date of : 39 Report #: [id number] THIS REPORT FOR: //name// CC: Marisol Chisholm DO Charles Mari DO DATE OF SERVICE: 06/17/2017 ADDENDUM: REFERRING PHYSICIAN: Dr. Charles Mari. I have seen and examined the patient and agree with plan that has been outlined by our nurse practitioner, Yaa Urbina. The patient has undergone a number of studies over the last couple of weeks including both upper and lower endoscopies, CT scans of the abdomen and pelvis, abdominal ultrasound, and CCK-PIPIDA scan, all of which have been unrevealing. The patient's predominant symptom at this point in time is persistent nausea and vomiting. She denies any vertigo, but does state that she has some dizziness. In any event, we will continue her on scopolamine patch, on p.r.n. Zofran and get her scheduled for a gastric emptying scan to be done tomorrow. Further recommendation will be made thereafter. I should note that the patient's CT scan that was done today was unrevealing. I have discussed the plans with the patient as well and she is agreeable to the same. <ELECTRONICALLY SIGNED> By: Syed Goodman DO 06/19/17 1008 1846 [id number] Goodman DO /nt
--- NOTE | 2017-06-19 10:08 | CON ---
[address] [address] CONSULTATION Name: RENNY LUCAS Room: [address] IN M.R.#: [id number] Admission: 06/16/17 Attend Phys: Neris Whitfield Discharge: Date of : 39 Report #: [id number] THIS REPORT FOR: //name// CC: Marisol Chisholm DO Charles Mari DO DICTATED BY: Yaa Urbina [facility] DATE OF SERVICE: 06/17/2017 Please note at the time of this dictation, the patient was seen and physically examined by myself. REASON FOR CONSULTATION: Nausea and vomiting, recurrent. HISTORY OF PRESENT ILLNESS: This is a 81-year-old female who was just recently seen by our group for admission on 06/09, in which she was discharged on 06/13, and underwent an EGD and colonoscopy at that time. EGD showed esophagitis grade A, small hiatal hernia, Schatzki ring in which she was dilated, otherwise was normal, instructed to take Protonix 40 mg daily. Colonoscopy, she had a poor prep, showed erythema throughout the sigmoid, descending, transverse and ascending colon with nonbleeding hemorrhoids that were noted and was recommended that she repeat her colonoscopy in 4-6 weeks for full evaluation. Biopsies came back of the colon and they were negative. The patient states on this admission she really had never specifically gotten rid of her nausea that had been persistent. She was taking her Protonix and stayed on her scopolamine patch. She states the nausea has still been pretty significant. Her bowels have not really moved because she has not been eating anything. She states she took an antibiotic pill yesterday and it came right back up prompting her to come in to be seen because she was still severe nausea and feeling sick all over and her PCP told her to come back since she was just released from the hospital on Thursday. ALLERGIES: No known drug allergies. MEDICATIONS FROM HOME: Include scopolamine patch, pantoprazole, Cipro, , Loman, MiraLax, Lopressor, Zestoretic, Norvasc, Zocor, Synthroid, vitamin D, and Xanax. 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 PAST SURGICAL HISTORY: [place] [address] CONSULTATION Name: RENNY LUCAS Room: [address]#: [id number] Admission: 06/16/17 Attend Phys: Neris Whitfield Discharge: Date of : 39 Report #: [id number] FAMILY HISTORY: Noncontributory. SOCIAL HISTORY: Denies any tobacco or illegal drug use, alcohol on special occasions. REVIEW OF SYSTEMS: Twelve-point review of systems is essentially negative except what is mentioned in the HPI. PHYSICAL EXAMINATION: VITAL SIGNS: Temperature 37.2, pulse 85, respirations 18, blood pressure 171/71. HEART: Regular rate and rhythm. LUNGS: Clear. ABDOMEN: Soft, positive bowel sounds in all 4 quadrants with no masses or tenderness noted. LABS: Hemoglobin 10.2, hematocrit 29.6, white count is 3.2, platelet is 206. Sodium 146, potassium 3.5, chloride 107, CO2 of 33, BUN is 3, creatinine 0.7, GFR is 81, and glucose is 94. CT of the abdomen and pelvis is still pending. The patient did have an ultrasound of the abdomen on 06/10, that showed thickening of the gallbladder wall with small amount of fluid noted. She also underwent a hepatobiliary scan during her last admission that showed an EF of 74% along with EGD and colonoscopy that were noted under the HPI. IMPRESSION: 1. Nausea and vomiting. 2. 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 3. Lightheaded and dizziness. PLAN: 1. GET 4 hours and plan to give an antiemetic prior to her going down. 2. Continue her MiraLax daily. 3. CT results are still pending from this a.m. 4. Further recommendations to be made once the GET has been done and she will need a repeat colonoscopy in 1 month since her prep was poor and the patient was informed of her biopsy results from earlier last week. Thank you for allowing us to participate in this patient's care. Please do not hesitate to call with any questions in regard to this consult. ADDENDUM: REFERRING PHYSICIAN: Dr. Charles Mari. I have seen and examined the patient and agree with plan that has been outlined by our nurse practitioner, Yaa Urbina. The patient has undergone a number [facility] [address] [place] [address] CONSULTATION Name: RENNY LUCAS Room: [address] IN M.R.#: [id number] Admission: 06/16/17 Attend Phys: Charles GurvinderNeris Heath Discharge: Date of : 39 Report #: [id number] of studies over the last couple of weeks including both upper and lower endoscopies, CT scans of the abdomen and pelvis, abdominal ultrasound, and CCK-PIPIDA scan, all of which have been unrevealing. The patient's predominant symptom at this point in time is persistent nausea and vomiting. She denies any vertigo, but does state that she has some dizziness. In any event, we will continue her on scopolamine patch, on p.r.n. Zofran and get her scheduled for a gastric emptying scan to be done tomorrow. Further recommendation will be made thereafter. I should note that the patient's CT scan that was done today was unrevealing. I have discussed the plans with the patient as well and she is agreeable to the same. <ELECTRONICALLY SIGNED> By: Syed Goodman DO 06/19/17 1008 1047 [id number] Goodman DO /nt
[2017-06-19] MEDS ORDERED: PHENERGAN 25 MG25 M1 PO (11:35)
[2017-06-19] MEDS ORDERED: MUCINEX DM ER1 EAC1 PO (11:46)
[2017-06-19 11:47] VITALS: BP 148/61
[2017-06-19] MEDS ORDERED: MIRALAX17 GM PO (12:15)
--- NOTE | 2017-06-19 12:25 | NUR ---
PATIENT DISCHARGED TO HOME. DISCHARGE PAPERS REVIEWED AND SIGNED. PRESCRIPTIONS AND INFORMATION SHEETS GIVEN. IV REMOVED. PATIENT DENIES ANY FURTHER NEEDS. PATIENT TAKEN BY WHEELCAHIR TO EXIT. LEFT WITH FAMILY.
--- NOTE | 2017-06-19 15:49 | NUR ---
RECEIVED AUTH FOR PT'S SCOPALOMINE PATCH CALL PLACED TO TI[facility] TO UPDATE
[2017-07-14] MEDS ORDERED: ZOLPIDEM TARTRA10 MG PO (08:12)
[2017-07-14] MEDS ORDERED: NORCO 10-325 T1 EACH PO (08:12)
[2017-08-11] MEDS ORDERED: XANAX 0.5 MG0.5 MG PO (10:02)
[2017-08-11] MEDS ORDERED: CLONIDINE0.1 PO (10:02)
[2017-08-11] MEDS ORDERED: NORCO 10-325 T1 EACH PO (10:12)
[2017-08-11] MEDS ORDERED: ZOLPIDEM TARTRA10 MG PO (10:13)
[2017-09-08] MEDS ORDERED: NORCO 10-325 T1 EACH PO ×2 (08:24→11:07)
[2017-09-08] MEDS ORDERED: ZOLPIDEM TARTRA10 MG PO ×2 (11:21→11:22)
[2017-10-06] MEDS ORDERED: ZOLPIDEM TARTRA10 MG PO (08:41)
[2017-10-06] MEDS ORDERED: NORCO 10-325 T1 EACH PO (08:41)
[2017-10-06] MEDS ORDERED: AMBIEN 5 MG TABL5 M1 PO (11:36)
[2017-10-06] MEDS ORDERED: CELEXA10 MG PO (11:57)
[2017-11-05] MEDS ORDERED: AMBIEN 5 MG TABL5 M1 PO (08:10)
[2017-11-05] MEDS ORDERED: NORCO 10-325 T1 EACH PO (08:10)
[2017-12-08] MEDS ORDERED: NORCO 10-325 T1 EACH PO (08:38)
[2017-12-08] MEDS ORDERED: PANTOPRAZOLE SO40 M1 PO (08:38)
[2017-12-08] MEDS ORDERED: AMBIEN 5 MG TABL5 M1 PO (08:38)
[2018-01-05] MEDS ORDERED: PANTOPRAZOLE SO40 M1 PO (08:13)
[2018-01-05] MEDS ORDERED: NORCO 10-325 T1 EACH PO (08:13)
[2018-01-05] MEDS ORDERED: AMBIEN 5 MG TABL5 M1 PO (08:13)
[2018-02-02] MEDS ORDERED: NORCO 10-325 T1 EACH PO (08:13)
[2018-02-02] MEDS ORDERED: AMBIEN 5 MG TABL5 M1 PO (08:13)
[2018-02-02] MEDS ORDERED: VITAMIN D1000 UNI1 PO (09:50)
[2018-02-02] MEDS ORDERED: KLOR-CON 1010 MEQ PO (09:55)
[2018-02-02] MEDS ORDERED: MEDROLDOSEPACK PO (10:15)
== END 2017-06-19 12:25 | disposition home or self-care (01) | DRG 371 ==
LOC: M.ERS 15:45 → M.TBA-ER 17:33 → M.3W 17:33
PROVIDERS: Family Medicine; ADMIT Internal Medicine
DX: A04.9 Bacterial intestinal infection, unspecified (principal); E43 Unspecified severe protein-calorie malnutrition; I10 Essential (primary) hypertension; E78.5 Hyperlipidemia, unspecified; G89.29 Other chronic pain; M54.9 Dorsalgia, unspecified; F41.9 Anxiety disorder, unspecified; F32.9 Major depressive disorder, single episode, unspecified; E86.0 Dehydration; E03.9 Hypothyroidism, unspecified; K59.09 Other constipation; T40.605A Adverse effect of unspecified narcotics, initial encounter; Y92.89 Other specified places as the place of occurrence of the external cause; E87.6 Hypokalemia; Z95.0 Presence of cardiac pacemaker; Z79.899 Other long term (current) drug therapy

== ENCOUNTER → 2017-06-16 | Outpatient (CLI) | payer OTHER ==
[~2017-06-16] MED LIST changes: +AMBIEN 5 MG TABL5 M1 PO; +CELEXA10 MG PO; +CHLORTHALIDONE25 MG PO; +CIPRO500 MG PO; +CLONIDINE0.1 PO; +KLOR-CON 1010 MEQ PO; +MEDROLDOSEPACK PO; +MIRALAX17 GM PO; +MUCINEX DM ER1 EAC1 PO; +NORVASC5 MG PO; +ONDANSETRON HCL4 M2 PO; +PANTOPRAZOLE SO40 M1 PO; +PHENERGAN 25 MG25 M1 PO; +TRANSDERM-SCOP1 EACH TRANSDERM; +VITAMIN D1000 UNI1 PO; +XANAX 0.5 MG0.5 MG PO
--- NOTE | 2017-06-17 14:44 | PAINCON ---
[address] [address] PAIN MANAGEMENT CONSULTATION Name: LANCERENNY Hollins Room: [facility] Miller#: [id number] Admission: 06/16/17 Attend Phys: Garo Fields MD Discharge: Date of : 39 Report #: [id number] THIS REPORT FOR: //name// CC: Marisol Francois DATE OF SERVICE: 06/16/2017 FOLLOWUP COMPLAINT: "I was in the hospital for about 4 days. I have had a lot of coughing and my low back pain is worse. FOLLOWUP HISTORY: The patient is a 81-year-old female who has been followed in the Pain Clinic because of significant spinal stenosis. Since we saw her last, she has had some changes in her health. She recently was in the hospital. She underwent colonoscopy and EGD. She was having gastric problems. She denies having contracted flu. She has been coughing quite a bit since her release from the hospital. She also has severe fatigue. She was told that she was dehydrated. She finds that the hydrocodone medications continue to be helpful. She has returned today for renewal of her medications. Because of the constant cough, she has increased pain and discomfort in the chest area as well as in her back area. She feels that the pain is quite problematic and stopping her from getting sleep and rest. She would like to take 4 hydrocodone tablets per day for a while, while she convalesces. She has not had any problems with her pacemaker. Because of her constant cough, she was wondering whether or not she should take another medication to help decrease the cough. She states that she is going to see her primary physician in about 3 days. ALLERGIES: No known drug allergies. CURRENT MEDICATIONS: Include gabapentin 300 mg 1 p.o. t.i.d., multivitamin D, hydrocodone 10/325 one p.o. t.i.d., Synthroid 0.25 mcg daily, Remeron 15 mg for mood, Zocor 40 mg daily, zolpidem 10 mg at bedtime, metoprolol 25 mg morning and 25 mg evening, vitamin D 1000 mcg, vitamin D3 1000 mcg, lisinopril 20 mg/12.5 taken at noon. PAIN CLINIC ASSESSMENT: 1. 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 2. Height 5 feet 4 inches, weight 125 pounds, BMI is 21. 3. Pain intensity 7/10 with cough. 4. Fall risk. The patient has not fallen since we saw her last. IMPRESSION: 1. Blood thinner. The patient is not on a blood thinner 2. History of hypertension. The patient is being treated for hypertension. 3. Opioid therapy greater than 6 weeks. The patient is receiving her [facility] [address] [place] [address] PAIN MANAGEMENT CONSULTATION Name: RENNY LUCAS Room: [facility]#: [id number] Admission: 06/16/17 Attend Phys: Garo Fields MD Discharge: Date of : 39 Report #: [id number] medications from the pain clinic in that regard. 4. Risk assessment tool. 5. Function assessment tool. 6. Tobacco use. Denies use of tobacco use. 7. Recreational drug use. The patient denies recreational drug use. 8. Alcohol: The patient drinks alcoholic beverages on occasion. PHYSICAL EXAMINATION: GENERAL: The patient is a well-developed white female. She does look somewhat tired and weak. APPEARANCE: Appears her stated age. ORIENTATION: The patient is alert and oriented x 3. AFFECT: The patient's affect appears appropriate. Does appear weakened. HEENT: Normocephalic, atraumatic. Extraocular eye muscles are intact. No complaints of nasal complications, but does constantly cough. NECK: Without JVD. LUNGS: The patient has a constant cough which is somewhat deep and rattling. HEART: The patient has a pacemaker in place. Normal rate. ABDOMEN: Tender. The patient has complained of nausea and diarrhea, which caused her hospitalization for the last 4 days. MUSCULOSKELETAL: Alignment appears normal. Gait is somewhat slow and appears weak. Lower extremities, the patient still complains of some L4-L5 paraspinous muscle soreness. IMPRESSION: 1. 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 2. Significant clinical spinal stenosis of L3-L4 and L4-L5 with limitations in her ability to interact secondary to pain. 3. Chronic cough after 4 days hospitalization because of not diarrhea and nausea. 4. Bilateral neural foraminal stenosis at all levels of the lumbar spine. 5. Hypothyroidism. The patient has noted some change in her frequency of hot flashes as well as cold and heat tolerance. Following up with her primary physician. 6. Hypercholesterolemia. RECOMMENDATIONS: We discussed treatment options with the patient. She has recently been released from the hospital. She was hospitalized for 4 days because of nausea, vomiting and diarrhea. She now has a chronic cough after the endoscopy and hospitalization. She feels that her back pain has increased because of this constant coughing. She would like to proceed with 4 pills of hydrocodone 10/325 p.o. q.i.d. while she is going through this rough period. She is scheduled to see her primary physician in about 3 days. She is coughing. She states that which she is coughing up is clear. If her cough continues, she may consider requesting a cough suppressant from her primary physician. We have talked about Larisalalita Gibson that might be helpful. [place] [address] PAIN MANAGEMENT CONSULTATION Name: RENNY LUCAS Room: [facility]#: [id number] Admission: 06/16/17 Attend Phys: Garo Fields MD Discharge: Date of : 39 Report #: [id number] primary care physician in that regard. Her script for 10/325 mg hydrocodone tablets have been written for a total of 4 per day for this month while she convalesces. We would like to thank you for letting us participate in her care. We hope she continues to improve. <ELECTRONICALLY SIGNED> By: Garo Fields MD 06/17/17 1444 1354 1913N. González Fields MD /[facility]
== END ==
LOC: M.PC 06-09 08:40
DX: M47.896 Other spondylosis, lumbar region (principal); M48.061 Spinal stenosis, lumbar region without neurogenic claudication; I10 Essential (primary) hypertension; F11.20 Opioid dependence, uncomplicated

== ENCOUNTER → 2017-07-14 | Outpatient (CLI) | payer OTHER ==
[~2017-07-14] MED LIST changes: +AMBIEN 5 MG TABL5 M1 PO; +CELEXA10 MG PO; +CHLORTHALIDONE25 MG PO; +CLONIDINE0.1 PO; +KLOR-CON 1010 MEQ PO; +MEDROLDOSEPACK PO; +MUCINEX DM ER1 EAC1 PO; +ONDANSETRON HCL4 M2 PO; +PHENERGAN 25 MG25 M1 PO; +VITAMIN D1000 UNI1 PO; +XANAX 0.5 MG0.5 MG PO
--- NOTE | 2017-07-15 15:40 | PAINCON ---
[address] [address] PAIN MANAGEMENT CONSULTATION Name: RENNY LUCAS Room: [facility] Miller#: [id number] Admission: 07/14/17 Attend Phys: Garo Fields MD Discharge: Date of : 37 Report #: [id number] THIS REPORT FOR: //name// CC: Marisol Francois DATE OF SERVICE: 07/14/2017 FOLLOWUP COMPLAINT: Here for medication renewal. FOLLOWUP HISTORY: The patient is a 81-year-old female who has been followed in the Pain Clinic because of chronic pain. As you may recall, she suffers from spinal stenosis. She has tried epidural steroid injections in the past and found them less beneficial. She feels that she has improved somewhat. She does feel like there is a little bit of dizziness going on at this juncture. She declines using a wheelchair. She has been nauseated, but is not having pain. Overall, she feels that her current use of [place] 10 mg 1 p.o. q.4-6h. has been the best treatment so far for her pain. She has had some episodes of being hot as well as being cold. She has been referred to an seed yeast operator. Rates her pain as a zero at this juncture. She has not had the flu. Does not feel like she is having flu-like symptoms. Overall, she feels that this medication is the best that she has used so far. ALLERGIES: No known drug allergies. CURRENT MEDICATIONS: Reviewed. Gabapentin 300 mg 1 p.o. t.i.d., multivitamin D, hydrocodone 10/325 one p.o. q.i.d., Synthroid 0.25 mg daily, Remeron 15 mg for mood, Zocor 40 mg daily, zolpidem 10 mg at bedtime, metoprolol 25 mg in the morning and 25 mg at night, vitamin D 1000 IU, vitamin D3 1000 IU, lisinopril 20/12.5. PAIN CLINIC ASSESSMENT: 1. The patient has spinal stenosis on the lower portion of her back, which is contributing to her pain. 2. Height 5 feet 4 inches, weight 160 pounds. 3. Vitals: Blood pressure 166/67, heart rate 67, respiratory rate 16, room air O2 saturation is 98%, and temperature 98. 4. Pain intensity. The patient rates her pain as a 0/10 today. 5. Fall risk. The patient has not fallen since we saw her. She does feel somewhat unstable on her feet. She has noted some dizziness. Recommended that she use a wheelchair or cane/walker for stability. 6. Blood thinner. The patient is not on a blood thinner. 7. Hypertension. The patient is being treated for hypertension. 8. Opioid therapy greater than 6 weeks. The patient is taking opioid medication. She gets her medication from [address] [place] [address] PAIN MANAGEMENT CONSULTATION Name: RENNY LUCAS Room: [facility]#: [id number] Admission: 07/14/17 Attend Phys: Garo Fields MD Discharge: Date of : 37 Report #: [id number] 9. Risk assessment tool. 10. Functional assessment tool. 11. Tobacco. Denies use of tobacco. 12. Recreational drug use. Denies recreational drug use. 13. Alcohol. The patient drinks alcoholic beverages on occasion. PHYSICAL EXAMINATION: GENERAL: The patient is well developed white female. She appears her stated age. She looks little bit tired. Her gait is a little bit shaky. Orientation: She is alert and oriented x 3. Affect appears appropriate. HEENT: Normocephalic, atraumatic. Extraocular eye muscles intact. Sclerae are noninjected. Hearing within normal limits. Mucous membranes moist. NECK: No JVD, bruits. Good range of motion. LUNGS: Without coughing, which was noted at the last visit. HEART: The patient has a pacemaker in place. Normal rate. ABDOMEN: Nontender. The patient did have some complaints of nausea. MUSCULOSKELETAL: Alignment appears normal. Gait is somewhat slow. The patient is a little unstable on her feet. Lower extremities: The patient continues to have L4-L5 paresthesias with muscle soreness. IMPRESSION: 1. 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 2. Significant spinal stenosis of L3-L4 and L4-L5 with limitation in her ability to interact with activities of daily living. 3. Cough has improved. 4. Bilateral neural foraminal stenosis at all levels of the lumbar spine. 5. Hypothyroidism. The patient continues to have some hot and cold episodes. We will continue to follow up with her seed yeast operator. 6. Hypercholesterolemia. RECOMMENDATION: The patient finds that the opioid medications of [place] 10/325 one tablet p.o. q.i.d. has been quite instrumental in improving her pain. She rates her pain as a 0/10 at this juncture. She does not note any significant increase in constipation. She had a talk with her son. He indicated that they knew of someone who had problems with narcotics with problems with their colon. We explained that narcotics can cause some problems with narcotic bowel. She does not seem to be having that problem. I think at this juncture, it is reasonable for her to continue with her medications as she is taking them. There is no problem with her sensation or mentation. Overall, things are going reasonably well. We will renew her [place] 10/325 one p.o. q. 6 hours as well as Ambien 10 mg at bedtime. The patient will not take the Ambien, if she feels that she is having difficulty getting up at night or if she feels like this is impacting her quality of life. She is not complaining of diarrhea, [place] [address] PAIN MANAGEMENT CONSULTATION Name: RENNY LUCAS Room: [facility]#: [id number] Admission: 07/14/17 Attend Phys: Garo Fields MD Discharge: Date of : 37 Report #: [id number] was at the last visit. We would like to thank you for letting us participate in her care. We hope she continues to improve. <ELECTRONICALLY SIGNED> By: Garo Fields MD 07/15/17 1540 1105 1522N. González Fields MD /[facility]
== END ==
LOC: M.PC 03:03
DX: M47.816 Spondylosis without myelopathy or radiculopathy, lumbar region (principal); M48.061 Spinal stenosis, lumbar region without neurogenic claudication; E03.9 Hypothyroidism, unspecified; E78.00 Pure hypercholesterolemia, unspecified

== ENCOUNTER → 2017-08-11 | Outpatient (CLI) | payer OTHER ==
--- NOTE | 2017-08-18 10:23 | PAINCON ---
[address] [address] PAIN MANAGEMENT CONSULTATION Name: RENNY LUCAS Room: [facility] Miller#: [id number] Admission: 08/11/17 Attend Phys: Garo Fields MD Discharge: Date of : 39 Report #: [id number] THIS REPORT FOR: //name// CC: CHEMA PIERRE DO Chema Fields DATE OF SERVICE: 08/11/2017 FOLLOWUP COMPLAINT: Here for medications. FOLLOWUP HISTORY: The patient is a 81-year-old female who has been followed in the pain clinic. As you recall, she suffers from spondylosis and spinal stenosis. Notes that her pain continues to be problematic. She rates her pain as a 6/10 at this juncture. She continues to have some problems with hot and cold sensations. She states that she is now being considered for evaluation by an cellular plastics cutter. She has a scheduled appointment in approximately December of this year. As you recall, she has had epidural steroid injections. Over the years, they became less beneficial. Finds that her current use of [place] 10 mg every 4-6 hours has been helpful. Still has some episodes of hot as well as feeling cold. Did not have flu-like symptoms or the flu this year. Overall, not have any significant problems with her bowel or bladder dysfunction with use of her medications. ALLERGIES: No known drug allergies. CURRENT MEDICATIONS: Gabapentin 300 mg 1 p.o. t.i.d., multivitamins and vitamin D, hydrocodone 10/325 one p.o. q.i.d., Synthroid 0.25 mg daily, Remeron 15 mg for mood, Zocor 40 mg daily, Zolpidem 10 mg at bedtime, metoprolol 25 mg in the morning and 25 mg at night, vitamin D3 1000 international units, lisinopril 20/12.5 PAIN CLINIC ASSESSMENT: 1. History of osteoarthritis. The patient has some arthritic changes in her low back with spinal stenosis, which contribute to her pain. 2. Height 5 feet 4 inches, weight 115 pounds, BMI is 20. 3. Vital signs, blood pressure 133/51, heart rate 60, respiratory rate 16, room air saturation 98%, temperature 97.2. 4. Pain intensity 07/14. 5. Fall risk. The patient has not fallen in the last 3 months. 6. Blood thinner. The patient is not on a blood thinner. 7. History of hypertension. The patient does have some elevated blood pressure and is being treated for such. 8. Opioid therapy greater than 6 weeks. The patient is receiving opioid medication on a regular basis. 9. [place] [address] PAIN MANAGEMENT CONSULTATION Name: RENNY LUCAS Room: [facility]#: [id number] Admission: 08/11/17 Attend Phys: Garo Fields MD Discharge: Date of : 37 Report #: [id number] 10. Functional assessment tool. 11. Recreational drug use. Denies use of recreational drug use. 12. Tobacco: The patient denies use of tobacco. 13. Alcohol: The patient denies use of alcoholic beverages. PHYSICAL EXAMINATION: GENERAL: The patient is a well-developed white female. She appears her stated age. She is alert and oriented x 3. Her affect is appropriate. HEENT: Normocephalic, atraumatic. Extraocular eye muscles intact. Sclerae nonicteric Hearing is within normal limits. Mucous membranes are moist. Neck without JVD, bruits, or adenopathy. Good range of motion. LUNGS: Clear to auscultation without rhonchi or rales. ABDOMEN: Nontender. MUSCULOSKELETAL: With normal alignment without significant kyphosis, scoliosis or lordosis. Lower extremity muscle strength is judged to be 5/5 for the major muscle groups of lower extremity. The patient does have some low back pain and discomfort, which can radiate down into her legs. Depends on her level of activity. IMPRESSION: 1. 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 2. Significant spinal stenosis of L3-L4 and L4-L5 with limitation in her ability to engage in activities of daily living. 3. Bilateral neural foraminal stenosis at all levels of the lumbar spine. 4. Hypothyroidism. 5. Hypercholesterolemia. RECOMMENDATIONS: We discussed treatment options with the patient. At this juncture, she feels like the [place] 10/325 one p.o. q.i.d. continues to be helpful. She would like to continue with these medications. She states that she is keeping them in a guarded area. She has been watching the news and is aware of the opioid debate in the media. She feels that her medications are helpful. They enable her to engage in activities, she would not be able to without their use. She is continuing to have some problems with hot and cold sensations. She is scheduled to follow up with an cellular plastics cutter in either December or October of this year. She would like to have her medications renewed. She does not have any problems with mentation. No changes in bowel or bladder problems. We have rewritten the patient's medications in a script for hydrocodone 10/325 one p.o. q. 6 hours has been written. A script for zolpidem 10 mg at bedtime has been also provided. The patient will call us if she has any problems with her medications. We would like to thank you for letting us participate in her care. We hope she continues to improve. <ELECTRONICALLY SIGNED> By: Garo Fields MD 08/18/17 1023 1348 [id number]. González Fields MD /nt
== END ==
LOC: M.PC 03:55
DX: M47.816 Spondylosis without myelopathy or radiculopathy, lumbar region (principal); E03.9 Hypothyroidism, unspecified; E78.00 Pure hypercholesterolemia, unspecified

== ENCOUNTER → 2017-09-08 | Outpatient (CLI) | payer OTHER ==
--- NOTE | 2017-09-16 14:05 | PAINCON ---
[facility] [address] [place] [address] PAIN MANAGEMENT CONSULTATION Name: LANCERENNY Hollins Room: [facility] Miller#: [id number] Admission: 09/08/17 Attend Phys: Garo Fields MD Discharge: Date of : 37 Report #: [id number] THIS REPORT FOR: //name// CC: Marisol Fields DATE OF SERVICE: 09/08/2017 FOLLOWUP COMPLAINT: Here for medications. FOLLOWUP HISTORY: The patient is a 81-year-old female, who has been followed in the pain clinic because of chronic pain. She suffers from spondylolisthesis and spinal stenosis. As you recall, injections have not been as productive. At this juncture, we have been treating her with opioid medications. She finds that this is helpful. She feels that the [place] continues to be helpful. We would like to continue its use. States that she takes it as prescribed. She also has some significant problems with sleeping. Finds that Zofran has been quite efficacious. The patient states she is unable to get significant sleep without use of this sleep aid. Denies any problems with mentation after taking it or the following day. Still has some changes with cold sensation. She will follow up with her primary care physician in that regard. ALLERGIES: No known drug allergies. CURRENT MEDICATIONS: Gabapentin 300 mg 1 p.o. t.i.d., multivitamin, vitamin D, hydrocodone 10/325 one p.o. q.i.d., Synthroid 0.25 mg daily, Remeron 15 mg for mood, Zocor 40 mg daily, Zolpidem 10 mg at bedtime, metoprolol 25 mg in the evening, 25 mg at night, vitamin D3 1000 International Units, lisinopril 20/12.5. PAIN CLINIC ASSESSMENT: 1. History of osteoarthritis. The patient has some osteoarthritic changes in her low back with spinal stenosis, which attributes to her pain. 2. Height 5 feet 4 inches. 3. Weight 118 pounds, BMI is 20. 4. VITAL SIGNS: Blood pressure is 141/67, heart rate 62, respiratory rate 16, room air saturation 98, temperature 97.8, pain intensity 7/10. 5. Fall risk. The patient states that she did fall from a chair. She was not hurt. 6. The patient is not on a blood thinning medication. 7. History of hypertension. The patient is being treated for hypertension. 8. Opioids greater than 6 weeks. The patient is receiving opioid medications from one center. 9. Risk assessment tool. 10. Functional assessment tool. 11. [place] [address] PAIN MANAGEMENT CONSULTATION Name: RENNY LUCAS [id number] Admission: 09/08/17 Attend Phys: Garo Fields MD Discharge: Date of : 37 Report #: [id number] 12. Tobacco use. The patient has not smoked in 30 years, smoked 30 years prior. 13. Alcohol: Denies use of alcoholic beverages. PHYSICAL EXAMINATION: GENERAL: The patient is a well-developed, well-nourished white female. She is somewhat slim in stature. She is alert and oriented x 3. Affect is appropriate. Speech is fluent. HEENT: Normocephalic, atraumatic. Extraocular eye muscles intact. The patient is wearing glasses. Sclerae nonicteric. Hearing is within normal limits. Mucous membranes are moist. NECK: Without JVD, bruits, or adenopathy. Good range of motion. LUNGS: Clear to auscultation without rhonchi or rales. ABDOMEN: Nontender. MUSCULOSKELETAL: Normal alignment without significant kyphosis, scoliosis or lordosis. Lower extremity muscle strength is judged to be 5/5 for the major muscle groups. The patient does have some low back pain and discomfort. This can radiate down into her legs. IMPRESSION: 1. 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 2. Significant spinal stenosis L3-L4 and L4-L5. Bilateral neural foraminal stenosis at all levels of the lumbar spine. 3. Hypothyroidism. 4. Hypercholesterolemia. RECOMMENDATIONS: We discussed treatment options with the patient. We will continue with her current medication regimen. Safe at the G[place] 10/325 q.i.d., continue to be helpful. She requests that we continue with her medications. She states that she keeps her medications in a guarded area. She is aware that opioid medications are being debated in the media. She states that the medications are quite helpful for her and able her to engage in activities of daily living, she would not be able to without their use. She feels that her mental status continues to remain sharp and focus. A script for hydrocodone 10/325 one p.o. q.i.d., Zolpidem 10 mg has been rewritten 1 at bedtime. <ELECTRONICALLY SIGNED> By: Garo Fields MD 09/16/17 1405 [id number] 1816N. González Fields MD /nt
== END ==
LOC: M.PC 01:58
DX: M47.26 Other spondylosis with radiculopathy, lumbar region (principal); E03.9 Hypothyroidism, unspecified; E78.00 Pure hypercholesterolemia, unspecified

== ENCOUNTER → 2017-10-06 | Outpatient (CLI) | payer OTHER ==
--- NOTE | 2017-10-08 08:42 | PAINCON ---
[address] [address] PAIN MANAGEMENT CONSULTATION Name: LANCERENNY Hollins Room: [facility] HOLLIE Bhatt#: [id number] Admission: 10/06/17 Attend Phys: Garo Fields MD Discharge: Date of : 37 Report #: [id number] THIS REPORT FOR: //name// CC: Marisol Fields DATE OF SERVICE: 10/06/2017 FOLLOWUP COMPLAINT: Low back pain. My doctor wants to change some of my medications. FOLLOWUP HISTORY: The patient is a 81-year-old female who has been followed in the pain clinic because of chronic pain involving her low back. She has history of spondylolisthesis and spinal stenosis. She has undergone epidural steroid injections in the past. She feels that her pain is becoming more problematic. She is open to undergoing another epidural steroid injection with the hope that things would improve. She feels that the hydrocodone medication continues to be helpful, but notes that they have begun to be less effective. States that she continues to have a constant dull pain in her back. She feels that the Ambien medication is helpful. Feels that her [place] helps to make her pain more tolerable. Denies any bowel or bladder dysfunction as a result of her opioid medications. Denies any problems with mentation with use of her medications, still notes some changes with hot and cold weather. Feels that she is sensitive to the temperature changes. ALLERGIES: No known drug allergies. MEDICATIONS: Gabapentin 300 mg 1 p.o. t.i.d., multivitamins, vitamin D, hydrocodone 10/325 one p.o. q.i.d., Synthroid 0.25 mg daily, Remeron 15 mg for mood, Zocor 40 mg daily, zolpidem 10 mg at bedtime, metoprolol 25 mg in the evening, 25 mg at night, vitamin D3 1000 international units, and lisinopril 20/12.5. PAIN CLINIC ASSESSMENT: 1. History of osteoarthritis. The patient has osteoarthritic changes in her low back with spinal stenosis, which contributes to her pain. 2. Height 5 feet 4 inches, weight 119 pounds, BMI is 20. 3. Vital signs: Blood pressure 157/76, heart rate 60, respiratory rate 16, room air saturation 98%, temperature is 98.1. 4. Pain score 7/10. 5. Fall history: The patient has not fallen since the last visit. 6. Blood thinning medication. The patient is not on a blood thinning medication. 7. History of hypertension. The patient is being treated for hypertension. 8. Opioids greater than 6 weeks. The patient has received her opioid [place] [address] PAIN MANAGEMENT CONSULTATION Name: LANCERENNY WHITEHEAD Room: [facility]#: [id number] Admission: 10/06/17 Attend Phys: Garo Fields MD Discharge: Date of : 37 Report #: [id number] 9. Risk assessment tool. 10. Functional assessment tool. 11. Recreational drug use. The patient denies use of recreational drugs. 12. Tobacco: The patient has not smoked in 30 years, history of 30-year prior use. 13. Alcohol. Denies use of alcoholic beverages. PHYSICAL EXAMINATION: GENERAL: The patient is a well-developed, thin white female. She is alert and oriented x 3. Her affect is appropriate. Speech is fluent. HEENT: Normocephalic, atraumatic. Extraocular eye muscles intact. Sclerae nonicteric. The patient is wearing glasses. The patient's hearing is within normal limits. Mucous membranes are moist. NECK: Without JVD, bruits, or adenopathy. Good range of motion. LUNGS: Clear to auscultation without rhonchi or rales. ABDOMEN: Nontender. MUSCULOSKELETAL: Normal alignment without significant kyphosis or scoliosis. Lower extremity complaints of pain and discomfort, down into the low back area. Notes that there is some pain that radiates down into her legs bilaterally. IMPRESSION: 1. 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 2. Significant spinal stenosis at L3-L4 and L4-L5, bilateral neural foraminal stenosis at all levels of the lumbar spine. 3. Hypothyroidism. 4. Hypercholesterolemia. RECOMMENDATIONS: We discussed treatment options with the patient. The patient is continuing to find that [place] was helpful. I think it is reasonable to continue with this medication to help control her pain. She is using Ambien 10 mg per evening to help with sleep. We explained to the patient that a few years ago the recommendation was that women should only be on 5 mg of Ambien. We will decrease her dose to 5 mg and see whether or not this is helpful with her alertness. She will call us if she has any problems with her medications. We would like to thank you for letting us participate in her care. We hope she continues to improve. <ELECTRONICALLY SIGNED> By: Garo Fields MD 10/08/17 0842 1537 [id number]. González Fields MD /nt
== END ==
LOC: M.PC 05:31
DX: M47.816 Spondylosis without myelopathy or radiculopathy, lumbar region (principal); M48.062 Spinal stenosis, lumbar region with neurogenic claudication; E03.9 Hypothyroidism, unspecified; E78.00 Pure hypercholesterolemia, unspecified; G89.29 Other chronic pain

== ENCOUNTER 2017-10-14 16:21 | Emergency (ER) | payer OTHER ==
[~2017-10-14] VITALS: Ht 162.6 cm; Wt 54.4 kg
[~2017-10-14 16:21] MED LIST changes: -CHLORTHALIDONE25 MG PO; -KLOR-CON 1010 MEQ PO; -MEDROLDOSEPACK PO; -ONDANSETRON HCL4 M2 PO; -VITAMIN D1000 UNI1 PO
[2017-10-14] MEDS ORDERED: CHLORTHALIDONE25 MG PO (16:39)
[2017-10-14] MEDS ORDERED: ONDANSETRON HCL4 M2 PO (16:39)
[2017-10-14 17:10] LABS: ABSOLUTE LYMPHOCYTES 1.7 thou/uL (0.8-5.3); ABSOLUTE MONOCYTES 0.6 thou/uL (0.0-1.2); ABSOLUTE NEUTROPHILS 3.4 thou/uL (1.6-8.1); BASOPHILS 0.5 %; EOSINOPHILS 0.8 %; HEMATOCRIT 39.3 % (37.0-47.0); HEMOGLOBIN 13.6 gm/dL (12.0-15.0); LYMPHOCYTES 29.1 %; MCH 31.3 pg (26.0-34.0); MCHC 34.7 g/dL (28.0-37.0); MCV 90.3 fL (80.0-100.0); MONOCYTES 9.8 %; MPV 7.2 fl. (7.2-11.1); NUCLEATED RBCS 0 /100WBC; PLATELET COUNT* 239 thou/uL (150-400); POLYS 59.8 %; RBC 4.36 mil/uL (4.20-5.00); RDW-CV 13.7 % (10.5-14.5); WBC 5.7 thou/uL (4.0-11.0)
[2017-10-14 17:20] LABS: ANION GAP 7 mmol/L (7-16); BUN 11 mg/dL (7-18); CALCIUM 9.3 mg/dL (8.5-10.1); CHLORIDE 97 mmol/L (98-107); CO2 30 mmol/L (21-32); CREATININE 0.7 mg/dL (0.6-1.3); GLUCOSE 141 mg/dL (70-99); POTASSIUM 3.3 mmol/L (3.5-5.1); SODIUM 134 mmol/L (136-145)
[2017-10-14 17:31] LABS: ALBUMIN 4.3 g/dL (3.4-5.0); ALKALINE PHOSPHATASE 66 U/L (46-116); NT-PRO BRAIN NAT PEPTIDE 746 pg/mL (<300); SGOT 20 U/L (15-37); SGPT 17 U/L (30-65); TOTAL BILIRUBIN 0.5 mg/dL (<0.1-1.0); TOTAL PROTEIN 7.6 g/dL (6.4-8.2); TROPONIN-I LEVEL <0.06 ng/mL (<0.06)
[2017-10-14 17:57] LABS: URINE BILIRUBIN NEGATIVE (Negative); URINE BLOOD 1+ (Negative); URINE CLARITY CLEAR; URINE COLOR YELLOW; URINE GLUCOSE-RANDOM NEGATIVE (Negative); URINE KETONES NEGATIVE (Negative); URINE LEUKOCYTES-REFLEX NEGATIVE (Negative); URINE NITRITE-REFLEX NEGATIVE (Negative); URINE PROTEIN NEGATIVE (Negative); URINE SPECIFIC GRAVITY <= 1.005 (1.005-1.030); URINE UROBILINOGEN 0.2 E.U./dl (0.2-1.0)
[2017-10-14 18:56] LABS: BACTERIA-REFLEX None Seen /HPF (None Seen); CASTS None Seen /LPF (None Seen); CRYSTALS None Seen /LPF (None Seen); SQUAMOUS 4-10 Moderate /LPF (0-3); URINE RBC 3-10 Few /HPF (0-2); URINE WBC-REFLEX None Seen /HPF (0-5)
[2017-10-14 20:00] VITALS: BP 191/77
[2017-11-05] MEDS ORDERED: NORCO 10-325 T1 EACH PO (08:10)
[2017-11-05] MEDS ORDERED: AMBIEN 5 MG TABL5 M1 PO (08:10)
[2017-12-08] MEDS ORDERED: PANTOPRAZOLE SO40 M1 PO (08:38)
[2017-12-08] MEDS ORDERED: NORCO 10-325 T1 EACH PO (08:38)
[2017-12-08] MEDS ORDERED: AMBIEN 5 MG TABL5 M1 PO (08:38)
[2018-01-05] MEDS ORDERED: AMBIEN 5 MG TABL5 M1 PO (08:13)
[2018-01-05] MEDS ORDERED: NORCO 10-325 T1 EACH PO (08:13)
[2018-01-05] MEDS ORDERED: PANTOPRAZOLE SO40 M1 PO (08:13)
[2018-02-02] MEDS ORDERED: NORCO 10-325 T1 EACH PO (08:13)
[2018-02-02] MEDS ORDERED: AMBIEN 5 MG TABL5 M1 PO (08:13)
[2018-02-02] MEDS ORDERED: VITAMIN D1000 UNI1 PO (09:50)
[2018-02-02] MEDS ORDERED: KLOR-CON 1010 MEQ PO (09:55)
[2018-02-02] MEDS ORDERED: MEDROLDOSEPACK PO (10:15)
[2018-03-02] MEDS ORDERED: NORCO 10-325 T1 EACH PO (08:12)
[2018-03-02] MEDS ORDERED: AMBIEN 5 MG TABL5 M1 PO (08:12)
== END 2017-10-14 20:06 | disposition home or self-care (01) ==
LOC: M.ERS 16:21
PROVIDERS: Nurse Practitioner Family
DX: R50.9 Fever, unspecified (principal); K62.89 Other specified diseases of anus and rectum; I10 Essential (primary) hypertension; E78.5 Hyperlipidemia, unspecified; M54.9 Dorsalgia, unspecified; G89.29 Other chronic pain; F41.9 Anxiety disorder, unspecified; F32.9 Major depressive disorder, single episode, unspecified; E07.9 Disorder of thyroid, unspecified; Z95.0 Presence of cardiac pacemaker

== ENCOUNTER → 2017-11-05 | Outpatient (CLI) | payer OTHER ==
[~2017-11-05] MED LIST changes: +CHLORTHALIDONE25 MG PO; +KLOR-CON 1010 MEQ PO; +MEDROLDOSEPACK PO; +ONDANSETRON HCL4 M2 PO; +VITAMIN D1000 UNI1 PO
--- NOTE | 2017-11-20 08:37 | PAINCON ---
[facility] [address] [place] [address] PAIN MANAGEMENT CONSULTATION Name: RENNY LUCAS Room: [facility] Miller#: [id number] Admission: 11/05/17 Attend Phys: Garo Fields MD Discharge: Date of : 37 Report #: [id number] THIS REPORT FOR: //name// CC: CHEMA PIERRE DO Chema Fields DATE OF SERVICE: 11/05/2017 FOLLOWUP COMPLAINT: Here for medications. Pain is doing pretty well. I am still having a lot of trouble sleeping. FOLLOWUP HISTORY: The patient is a 81-year-old female who has been followed in the pain clinic because of chronic low back pain. She has a history of spondylolisthesis. There is spinal stenosis. She finds that use of her current regimen of hydrocodone 10 mg tablets are helpful. Rates her pain as 4/10 at this juncture. She has had no complications from use of her medications. She has deep thinking clearly with their use. Keeps her medications in a guarded area. She is aware of possible complications regarding opioid use. They include possibility of "addiction," also possibility of less effectiveness of the medication secondary to developing tolerance. Denies any problem with her bladder or bowel because of the use of medications. ALLERGIES: No known drug allergies. MEDICATIONS: Gabapentin 300 mg 1 p.o. t.i.d., multivitamins, vitamin D, hydrocodone 10/325 one p.o. q.i.d., Synthroid 0.25 mg, Remeron 15 mg for mood, Zocor 40 mg daily, Zolpidem 5 mg at bedtime, metoprolol 25 mg in the evening, vitamin D3 1000 international units, lisinopril 20/12.5, alprazolam 0.5 mg, Celexa 10 mg one half tablet daily, clonidine 0.1 mg, metoprolol 25 mg b.i.d., pantoprazole 40 mg, MiraLax. PAIN CLINIC ASSESSMENT: 1. History of osteoarthritis. The patient has arthritic changes in her low back with spinal stenosis contributing to her pain. 2. Height 5 feet 4 inches, weight 115 pounds, BMI is 19.7. 3. Vital Signs: Blood pressure 144/64, heart rate 60, respiratory rate 16, room air saturation is 99%, temperature 97.9. Pain score 4/10. 4. Fall history: The patient has not fallen since our last visit. 5. Blood thinner. The patient is not on any blood thinning medications. 6. History of hypertension. The patient is being treated for hypertension and has had some of her medications were rearranged. 7. Opioids greater than 6 weeks. The patient receives her opioid medication from one source, the pain clinic. 8. Risk assessment tool. 9. [place] [address] PAIN MANAGEMENT CONSULTATION Name: RENNY LUCAS [facility] [id number] Admission: 11/05/17 Attend Phys: Garo Fields MD Discharge: Date of : 37 Report #: [id number] 10. Recreational drug use. The patient denies use of recreational drugs. 11. Tobacco: The patient denies smoking, has not smoked in 30 years, has a 30-year history prior. 12. Alcohol: The patient denies use of alcoholic beverages. PHYSICAL EXAMINATION: GENERAL: The patient is a well-developed, well-nourished white female. She is thin. She is alert and oriented x 3. Her affect is appropriate. Speech is fluent. HEENT: Normocephalic, atraumatic. Extraocular eye muscles intact. Sclerae nonicteric. The patient is wearing glasses. Hearing is within normal limits. Mucous membranes are moist. NECK: Without JVD, bruits, or adenopathy. Good range of motion. LUNGS: Clear to auscultation without rhonchi or rales. ABDOMEN: Nontender, scaphoid. MUSCULOSKELETAL: Without scoliosis, kyphosis or lordosis. Upper extremity muscle strength is judged to be 4+/5 for the major muscle groups. Lower extremity 4+/5 for the major muscle groups in the lower extremity. IMPRESSION: 1. 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 2. Significant spinal stenosis at L3-L4 and L4-L5 -- bilateral neural foraminal stenosis at all levels of the lumbar spine. 3. Hypothyroidism. 4. Hypercholesterolemia. 5. Insomnia. RECOMMENDATIONS: We discussed treatment options with the patient. We will continue with her current medications. She feels that the opioid medications are working reasonably well. Does not have any problems with them. She has taken Ambien 5 mg at night. Still feels that she is having difficulty sleeping. States that her doctor given her a new medication, which sounds like Celexa. She does not feel that is helping with her sleep. She will consider use of Benadryl over the counter to see whether or not that is helpful. She will continue the use of melatonin. A refill of her medications, Ambien 5 mg at bedtime, hydrocodone 10/325 one p.o. q.i.d. have been written. She will follow up with her primary physician in regard to additional help with her sleep. We would like to thank you for letting us participate in her care. We hope she continues to improve. <ELECTRONICALLY SIGNED> By: Garo Fields MD 11/20/17 0837 1007 1027N. González Fields MD /nt
== END ==
LOC: M.PC 11-03 11:10
DX: M47.816 Spondylosis without myelopathy or radiculopathy, lumbar region (principal); M48.061 Spinal stenosis, lumbar region without neurogenic claudication; E03.9 Hypothyroidism, unspecified; E78.00 Pure hypercholesterolemia, unspecified; G47.00 Insomnia, unspecified; Z79.899 Other long term (current) drug therapy

== ENCOUNTER → 2017-12-08 | Outpatient (CLI) | payer OTHER ==
--- NOTE | 2017-12-11 17:38 | PAINCON ---
[address] [address] PAIN MANAGEMENT CONSULTATION Name: LANCERENNY Gurvinder Room: [facility] Miller#: [id number] Admission: 12/08/17 Attend Phys: Garo Fields MD Discharge: Date of : 39 Report #: [id number] THIS REPORT FOR: //name// CC: Alvina Francois DATE OF SERVICE: 12/08/2017 FOLLOWUP COMPLAINT: "Things are going pretty well. I have noticed that I have gotten more sober. I have been walking around the block about 4 times." FOLLOWUP HISTORY: The patient is an 82-year-old female who has been followed in the pain clinic because of chronic pain. She has history of spondylolisthesis. She has spinal stenosis. Finds that her current medication use of hydrocodone is helpful. She has noticed that sometimes she needs to take her medications more often. Overall, feels that things are going reasonably well. She has some concerns about the possibility of tolerance. Does have a family history of dependency. Overall, she feels that things are going reasonably well and would like to continue her medications. Notes that prolonged standing in the kitchen can exacerbate her pain and discomfort. Finds that the Preston continues to be helpful. Does take about q. 6 hours, sometimes q. 4 hours depending on her activity level. Has continued to use Ambien. Finds that this medication is helpful. I would like to have the medication elevated. We did discuss the outline by the FDA of the lower levels of Ambien and those types of medications on women. The patient seems satisfied with that. Understanding and revelation. The patient has continued to take her medication, would like to continue with their use. Keeps it in a guarded area. Continues to live with her significant other, states that she does most of the cooking in the kitchen. ALLERGIES: No known drug allergies. MEDICATIONS: Gabapentin 300 mg 1 p.o. t.i.d., multivitamin, vitamin D, hydrocodone 10/325 one p.o. q.i.d., Synthroid 0.25 mg, Remeron 15 mg for mood, Zocor 40 mg daily, zolpidem 5 mg at bedtime, metoprolol 25 mg in the evening, vitamin D3 1000 International Units, lisinopril 20/12.5, alprazolam 0.5 mg, Celexa 10 mg one half tablet daily, Clomid, clonidine 0.1 mg, metoprolol 25 mg b.i.d., pantoprazole. The patient states that she is no longer taking this medication MiraLax. PAIN CLINIC ASSESSMENT: 1. History of osteoarthritis. The patient has arthritic changes in the low back and spinal stenosis contributing to her pain. 2. Height 5 feet 4 inches, weight 115 pounds, BMI is 19.8. 3. Vital signs: Blood pressure 177/77, heart rate 60, respiratory rate 16, room air saturation is 98%, temperature 97.6. Pain score 6/10[place] [address] PAIN MANAGEMENT CONSULTATION Name: RENNY LUCAS [id number] Admission: 12/08/17 Attend Phys: Garo Fields MD Discharge: Date of : 39 Report #: [id number] 4. Fall history: The patient has not fallen in the last 3 months. She is walking with a walker when she goes around the block. 5. Blood thinner. The patient is not on a blood thinning medication. 6. History of hypertension. The patient is being treated for hypertension. 7. Opioid greater than 6 weeks. The patient [facility] her [facility]. 8. Risk assessment tool. 9. Functional assessment tool. 10. Recreational drug use. The patient denies use of recreational drugs. 11. Tobacco: The patient denies use of tobacco. The patient has not smoked in 30 years. Has a 30-year smoking history prior. 12. Alcohol: The patient denies use of alcoholic beverages. PHYSICAL EXAMINATION: GENERAL: The patient is a well-developed, well-nourished white female. Appears her stated age. She is alert and oriented x 3. Her speech is fluent. HEENT: Normocephalic, atraumatic. Extraocular muscles intact. Sclerae nonicteric. Mucous membranes are moist. NECK: Without JVD, bruits, or adenopathy. Good range of motion. LUNGS: Clear to auscultation without rhonchi or rales. ABDOMEN: Nontender, scaphoid. MUSCULOSKELETAL: Without significant scoliosis, kyphosis or lordosis. Upper extremity muscle strength is judged to be 4+/5 for the major muscle groups. Lower extremity 4.5 for the lower muscle strength. The patient notes increased pain and discomfort with prolonged standing. She is sitting with a blanket on her. States that she sometimes experiences cold and notes that she sometimes experiences some dizziness and changes her medications, continue to be made by her primary. IMPRESSION: 1. 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 2. Significant spinal stenosis at L3-L4 and L4-L5 -- bilateral neural foraminal stenosis at all levels of the lumbar spine. 3. Hypothyroidism. 4. Hypercholesterolemia. 5. Insomnia. RECOMMENDATIONS: We discussed treatment options with the patient. Again, we discussed the use of Ambien with regulations by the FDA, has made consideration of zolpidem 5 mg at bedtime to lower the possibility of confusion and impairment in activities and alertness particularly when driving. The patient states that she does continue to have some dizziness, which is difficult to account for. She feels that her hydrocodone medication continues to be helpful. Notes that sometimes she needs to take it before the 6-hour. This has gone. Overall, she feels that things are going reasonably well. She does not have any problems with sedation or confusion with use of her medication. [place] [address] PAIN MANAGEMENT CONSULTATION Name: RENNY LUCAS Room: [facility].#: [id number] Admission: 12/08/17 Attend Phys: Garo Fields MD Discharge: Date of : 39 Report #: [id number] helpful, but not to the level that it was when she was taken to 10 mg. She understands that the FDA has made changes and is willing to continue with that degree. A script for her medications has been written for Preston 10/325 and Ambien 5 mg at bedtime. She will call us if she has any problems with her medications. We would like to thank you for letting us participate in her care. We hope she continues to improve. <ELECTRONICALLY SIGNED> By: Garo Fields MD 12/11/17 1738 [id number] 1058N. González Fields MD /nt
== END ==
LOC: M.PC 03:45
DX: M47.816 Spondylosis without myelopathy or radiculopathy, lumbar region (principal); M48.062 Spinal stenosis, lumbar region with neurogenic claudication; E03.9 Hypothyroidism, unspecified; E78.00 Pure hypercholesterolemia, unspecified; G47.00 Insomnia, unspecified; Z79.899 Other long term (current) drug therapy

== ENCOUNTER → 2018-01-05 | Outpatient (CLI) | payer OTHER ==
--- NOTE | 2018-01-18 10:00 | PAINCON ---
[facility] [address] [place] [address] PAIN MANAGEMENT CONSULTATION Name: RENNY LUCAS Room: [facility] Miller#: [id number] Admission: 01/05/18 Attend Phys: Garo Fields MD Discharge: Date of : 37 Report #: [id number] THIS REPORT FOR: //name// CC: Alvina Francois DATE OF SERVICE: 01/05/2018 FOLLOWUP COMPLAINT: Here for renewal of the medicine, I am doing well. FOLLOWUP HISTORY: The patient is an 82-year-old female who has been followed in the pain clinic because of chronic pain. She has a history of spondylolisthesis. She has spinal stenosis. She finds her medications of hydrocodone continue to be efficacious. Rates her pain as a 0/10 at this juncture. Notes some increased pain with certain activities. Overall, things are going reasonably well. She is not having any problems with mentation. Not to have any problems with her bowel or bladder function. She still has some difficulty with sleeping. She feels that her medications continue to be efficacious. She wish she could take more of the zolpidem. She still has some problems with insomnia. She has returned today for renewal of her medications. ALLERGIES: No known drug allergies. MEDICATIONS: Gabapentin 300 mg t.i.d., multivitamin, vitamin D, hydrocodone 10/325 one p.o. q.i.d., Synthroid 0.25 mg, Remeron 15 mg for mood, Zocor 40 mg daily, zolpidem 5 mg at bedtime, metoprolol 25 mg in the evening, vitamin D3 1000 International Units, lisinopril 20/12.5, alprazolam 0.5 mg, Celexa 10 mg one half tablet daily, Clomid, clonidine 0.1 mg, metoprolol 25 mg b.i.d. and pantoprazole. The patient has stopped taking MiraLax. PAIN CLINIC ASSESSMEN/PQRS: 1. The patient has a history of osteoarthritis with arthritic changes in the lower portion of her back and with spinal stenosis affecting her pain. 2. The patient is not being treated for rheumatoid arthritis. 3. Height 5 feet 4 inches, weight 115 pounds, BMI is 20. 4. Vital Signs: Blood pressure 140/68, heart rate 61, respiratory rate 16, room air saturation 97%, temperature 98.0. 5. Pain intensity 05/16. 6. Fall risk. The patient has not fallen in the last 3 months. 7. Blood thinner. The patient is not on a blood thinning medication. 8. History of hypertension. The patient is being treated for hypertension. 9. Opioids greater than 6 weeks. The patient takes her medication and get it from [facility] the [facility] clinic. 10. Risk assessment tool, low for use of opioid medication. 11. [place] [address] PAIN MANAGEMENT CONSULTATION Name: RENNY LUCAS Room: [facility]#: [id number] Admission: 01/05/18 Attend Phys: Garo Fields MD Discharge: Date of : 37 Report #: [id number] 12. Recreational drug use. 13. Tobacco: The patient denies use of tobacco. The patient stopped smoking 30 years ago. 14. Alcohol: The patient denies use of alcoholic beverages. PHYSICAL EXAMINATION: GENERAL: The patient is a well-developed, well-nourished white female. Appears her stated age. She is alert and oriented x 3. Affect is appropriate. Speech is fluent. HEENT: Normocephalic, atraumatic. Extraocular eye muscles intact. The patient wears glasses. NECK: Without JVD, bruits, or adenopathy. Good range of motion. LUNGS: Clear to auscultation without rhonchi or rales. ABDOMEN: Nontender, scaphoid. Bowel sounds present. MUSCULOSKELETAL: Without significant scoliosis, kyphosis or lordosis. The patient has pain and discomfort in the lower portion of her back and muscle strength in the upper extremity judged to be 4+/5 for the major upper muscles with symmetry. Lower extremity 4.5/5 in the lower muscle groups. The patient is sitting with a blanket on in the room air. IMPRESSION: 1. 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 2. Significant spinal stenosis at L3-L4 and L4-L5 -- bilateral neural foraminal stenosis at all levels of the lumbar spine. 3. Hypothyroidism. 4. Hypercholesterolemia. 5. Insomnia. RECOMMENDATIONS: We discussed treatment options with the patient. At this juncture, we will continue with her current medical regimen. She feels her medications are helpful. She is not having any conflicts with her medications and other medications. She still has some difficulty with sleeping. Again, we reviewed the possible reasons for her medications. We explained that some patient with Ambien can have difficulty remembering as well as clouding of their sensorium. At this juncture, we will continue with her current medications. A script has been written. She will call us if she has any problems. We would like to thank you for letting us participate in her care. We hope she continues to improve. <ELECTRONICALLY SIGNED> By: Garo Fields MD 01/18/18 1000 [id number] 1059N. González Fields MD /randee
== END ==
LOC: M.PC 04:47
DX: M47.10 Other spondylosis with myelopathy, site unspecified (principal); E78.00 Pure hypercholesterolemia, unspecified; E03.9 Hypothyroidism, unspecified; G47.00 Insomnia, unspecified; M48.061 Spinal stenosis, lumbar region without neurogenic claudication

== ENCOUNTER → 2018-02-02 | Outpatient (CLI) | payer OTHER ==
--- NOTE | 2018-02-17 16:28 | PAINCON ---
[address] [address] PAIN MANAGEMENT CONSULTATION Name: RENNY LUCAS Room: [facility] Miller#: [id number] Admission: 02/02/18 Attend Phys: Garo Fields MD Discharge: Date of : 37 Report #: [id number] THIS REPORT FOR: //name// CC: Alvina Francois DATE OF SERVICE: 02/02/2018 FOLLOWUP COMPLAINT: Here for medication renewal. I am still having difficulty sleeping. I wake up at about 3:00 and cannot go back to sleep. HISTORY: The patient is an 82-year-old female who has been followed in the pain clinic. As you recall, she has significant spondylolisthesis. She also has spinal stenosis. Finds that the medications of hydrocodone are helpful. Still has pain, which can be quite problematic. Rates her pain as 6/10 at this juncture. She has some problems with sleeping issues. Has some insomnia. States that she takes her medications and is able to go to sleep. After the Ambien has worn off in a few hours, she awakens. She has been unable to go back to sleep. Has not fallen since we saw her last. Overall, things are going reasonably well. Still finds that sleep is problematic and would like to take more the Ambien. She is aware of the reasoning for the lower level of this medication and is interested in trying some other medications to try and help with that. ALLERGIES: No known drug allergies. MEDICATIONS: Gabapentin 300 mg t.i.d., multivitamin, vitamin D, hydrocodone 10/325 one p.o. q.i.d., Synthroid 0.25 mg, Remeron 15 mg removed, Zocor 40 mg daily, Zolpidem 5 mg at bedtime, metoprolol 25 mg in the evening, vitamin D3 1000 International Units, lisinopril 20/12.5, alprazolam 0.5 mg, Celexa 10 mg one half tablet daily, Clomid, clonidine 0.1 mg, metoprolol 25 mg b.i.d., pantoprazole. PAIN CLINIC ASSESSMENT/PQRS: 1. The patient has a history of osteoarthritis with arthritic changes in her lower portion of her back and with spinal stenosis affecting her pain. She is not being treated for rheumatoid arthritis. 2. Height 5 feet 4 inches, weight 116 pounds, BMI is 20. 3. Vital Signs: Blood pressure is 152/70, heart rate 60, room air saturation is 98%, temperature is 77.7. Pain intensity /10. 4. Fall risk. The patient has not fallen in the last 3 months. 5. Blood thinner. The patient is not on a blood thinning medication. 6. Hypertension. The patient is being treated for hypertension. 7. Opioids greater than 6 weeks. The [place] [address] PAIN MANAGEMENT CONSULTATION Name: RENNY LUCAS Room: [facility]#: [id number] Admission: 02/02/18 Attend Phys: Garo Fields MD Discharge: Date of : 37 Report #: [id number]. 8. Risk assessment tool, low for opioid use. 9. Functional assessment tool. 10. Recreational drug use. The patient denies use of recreational drugs. 11. Tobacco: The patient denies use of tobacco. 12. Alcohol: The patient denies using alcoholic beverages. PHYSICAL EXAMINATION: GENERAL: The patient is a well-developed, well-nourished white female. Appears her stated age. She is alert and oriented x 3. Her affect is appropriate. Speech is fluent. HEENT: Normocephalic, atraumatic. Extraocular eye muscles intact. The patient wears glasses. NECK: Without JVD, bruits, or adenopathy. Good range of motion. LUNGS: Clear to auscultation without rhonchi or rales. ABDOMEN: Nontender, scaphoid. Bowel sounds present. MUSCULOSKELETAL: Without significant scoliosis, kyphosis or lordosis. The patient has pain and discomfort in lower portion of her back with pain that radiates down into the lower back area. He has a worsening of pain with walking. Pain improves when she rests and uses her medications. IMPRESSION: 1. 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 2. Significant spinal stenosis at L3-L4 and L4-L5 -- bilateral neural foraminal stenosis at all levels of the lumbar spine. 3. Hypothyroidism. 4. Hypercholesterolemia. 5. Insomnia. RECOMMENDATIONS: We discussed treatment options with the patient. We will continue with her current medical management using Ambien 5 mg at bedtime, hydrocodone 10/325 one p.o. q.i.d., the patient will be given a Medrol Dosepak to take in the interim. Hopefully, this will help decrease some of the pain and discomfort which she is experiencing. We discussed the actions of steroid medications. The patient could also consider trying melatonin to help with sleep. States that she has seen another [id number] sleep agent, which she is considering trying. She will call us if she has any problem with her medications. We would like to thank you for letting us participate in her care. We hope she continues to improve. <ELECTRONICALLY SIGNED> By: Garo Fields MD 02/17/18 1628 1120 1453N. González Fields MD /PMT
== END ==
LOC: M.PC 04:57
DX: M47.816 Spondylosis without myelopathy or radiculopathy, lumbar region (principal); M48.062 Spinal stenosis, lumbar region with neurogenic claudication; E03.9 Hypothyroidism, unspecified; E78.00 Pure hypercholesterolemia, unspecified; G47.00 Insomnia, unspecified; Z79.899 Other long term (current) drug therapy

== ENCOUNTER → 2018-03-02 | Outpatient (CLI) | payer OTHER ==
--- NOTE | ~2018-03-02 | PAINCON ---
[address] [address] PAIN MANAGEMENT CONSULTATION Name: RENNY LUCAS [facility] VICR[facility]ith Bhatt#: [id number] Admission: 03/02/18 Attend Phys: Garo Fields MD Discharge: Date of : 37 Report #: [id number] THIS REPORT FOR: //name// CC: Alvina Francois DATE OF SERVICE: 03/02/2018 FOLLOWUP HISTORY: "Here for medications. I have been found to have diabetes." HISTORY: The patient is an 82-year-old female who has been followed in the pain clinic because of chronic pain. She states that she has recently been found to have some elevated blood sugars. She is in the process of checking her blood sugar to try and establish what an appropriate medication would be. Also, continues to have pain and discomfort in her low back area. She has significant spondylolisthesis. Has spinal stenosis. Finds that the medications of hydrocodone are helpful. Rates her pain as a 0/10 at this juncture when she is not moving. Notes that the pain is in the low back area. It affects the right side more than the left. Also, continues to have some problem with vertigo. Sudden standing can be problematic. Feels that her medications of [place] are helpful. She does not have any problems with her bowel or bladder function. She would like to continue with her medications. She has not fallen since we saw her last. States that she has recently been found to have diabetes. She is checking her blood sugars numerous times at this juncture to establish a baseline. She has returned today for renewal of her medications. Weather has been bed. We have gotten about 4 inches of snow. She has not been outside. ALLERGIES: No known drug allergies. MEDICATIONS: Gabapentin 300 mg t.i.d., multivitamin, vitamin D, hydrocodone 10/325 one p.o. q.i.d., Synthroid 0.25 mg, Remeron 15 mg, Zocor 40 mg daily, zolpidem 5 mg at bedtime, metoprolol 25 mg in the evening, vitamin D3 1000 International Units, lisinopril 20/12.5, alprazolam 0.5 mg, Celexa 10 mg one half tablet daily, Clomid, clonidine 0.1 mg, metoprolol 25 mg b.i.d., and pantoprazole. PAIN CLINIC ASSESSMENT/PQRS: 1. The patient has a history of osteoarthritis and arthritic changes in her lower back with spinal stenosis affecting her pain. She is not being treated for rheumatoid arthritis. 2. Height 5 feet 4 inches, weight 116 pounds, BMI is 20. 3. Vital Signs: Blood pressure 148/66, heart rate 61, respiratory rate 16, room air saturation 98%, temperature 97.7. 4. Pain intensity is 0/10 [place] [address] PAIN MANAGEMENT CONSULTATION Name: RENNY LUCAS Room: [facility]#: [id number] Admission: 03/02/18 Attend Phys: Garo Fields MD Discharge: Date of : 39 Report #: [id number] 5. Fall risk. The patient has not fallen in the last 3 months. 6. Blood thinner. The patient is not on a blood thinning medication. 7. Hypertension. The patient is being treated for hypertension. 8. Opioids greater than 6 weeks. The [facility]. 9. Risk assessment tool, low for opioid use. 10. Functional assessment tool. 11. Recreational drug use: The patient denies use of recreational drugs. 12. Tobacco: The patient denies use of tobacco. 13. Alcohol: The patient denies use of alcoholic beverages. PHYSICAL EXAMINATION: GENERAL: The patient is a well-developed, well-nourished white female. Appears her stated age. She is alert and oriented x 3. Her affect is appropriate. Speech is fluent. HEENT: Normocephalic, atraumatic. Extraocular eye muscles are intact. Sclerae nonicteric. The patient wears glasses. The patient notes some signs of vertigo with certain standing. NECK: Without JVD, bruits, or adenopathy. Good range of motion. LUNGS: Clear to auscultation without rhonchi or rales. ABDOMEN: Nontender, scaphoid. Bowel sounds are present. MUSCULOSKELETAL: Without significant scoliosis, kyphosis or lordosis. The patient has pain and discomfort in lower portion of her back that radiates down to the lower portion of her back in the lumbar area. The pain is exacerbated with prolonged walking. Notes pain improves when she rests consistent with spinal stenosis. IMPRESSION: 1. 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 2. Significant spinal stenosis at L3-L4 and at L4-L5 -- bilateral neural foraminal stenosis at all levels of the lumbar spine. 3. Hypothyroidism. 4. Hypercholesterolemia. 5. Insomnia. 6. New onset of diabetes. RECOMMENDATIONS: We discussed treatment options with the patient. At this juncture, we will continue with her current medications. Finds that the Ambien 5 mg, hydrocodone 10/325 q.i.d. are helpful. The patient will continue with her medications. A script has been written for Ambien 5 mg 1 p.o. at bedtime and hydrocodone 10/325 one p.o. q.i.d., a total of 120 tablets have been dispensed. The patient will call us if she has any concerns. She will continue to monitor her blood sugar with [place] [address] PAIN MANAGEMENT CONSULTATION Name: RENNY LUCAS Room: [facility]#: [id number] Admission: 03/02/18 Attend Phys: Garo Fields MD Discharge: Date of : 39 Report #: [id number] We would like to thank you for letting us participate in her care. We hope she continues to improve. By: [id number] 1729N. González Fields MD /nt
== END ==
LOC: M.PC 04:53
DX: M47.816 Spondylosis without myelopathy or radiculopathy, lumbar region (principal); M48.062 Spinal stenosis, lumbar region with neurogenic claudication; E03.9 Hypothyroidism, unspecified; E78.00 Pure hypercholesterolemia, unspecified; G47.00 Insomnia, unspecified; E11.9 Type 2 diabetes mellitus without complications; Z79.899 Other long term (current) drug therapy

== ENCOUNTER → 2018-03-16 | Outpatient (CLI) | payer OTHER | LOC: M.ULTRA 12:37 | DX: I73.9 Peripheral vascular disease, unspecified (principal) ==

== ENCOUNTER → 2018-03-25 | Outpatient (CLI) | payer OTHER ==
--- NOTE | ~2018-03-25 | PAINCON ---
[facility] [address] [place] [address] PAIN MANAGEMENT CONSULTATION Name: RENNY LUCAS Room: [facility] Miller#: [id number] Admission: 03/25/18 Attend Phys: Garo Fields MD Discharge: Date of : 39 Report #: [id number] THIS REPORT FOR: //name// CC: Alvina Fields DATE OF SERVICE: 03/25/2018 CHIEF COMPLAINT: Here for medication renewal. HISTORY: The patient is an 82-year-old female who has been followed in the pain clinic because of chronic pain. As you recall, she has significant problems with spinal stenosis. She has spondylolisthesis. Finds that her pain is quite problematic. Rates her pain as low when she is not moving. Pain increases significantly with activities of daily living and particularly when she stands for a while. She has been having some problems with vertigo. Feels that her medications continue to be helpful. She has not fallen. Has pain, which she rates as a 10/10 at this juncture. She has had some elevations of her blood pressure. She has been keeping a record with her physician. She states that they are watching her and monitoring her blood pressure. She has noted that she has experienced some cold chills. Does have some problems with her thyroid. ALLERGIES: No known drug allergies. MEDICATIONS: Gabapentin 300 mg t.i.d., multivitamin, vitamin D, hydrocodone 10/325 one p.o. q.i.d., Synthroid 0.25 mg, Remeron 15 mg, Zocor 40 mg daily, zolpidem 5 mg at bedtime, metoprolol 25 mg in the evening, multivitamin D 1000 international units, lisinopril 20 mg/12.5, alprazolam 0.5 mg, Celexa 10 mg one half tablet daily, Clomid, clonidine 0.1 mg, metoprolol 25 mg b.i.d. and pantoprazole. PAIN CLINIC ASSESSMENT/PQRS: 1. 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 She has not been treated for rheumatoid arthritis. 2. Height 5 feet 4 inches, weight 117 pounds, BMI is 19. 3. Vital signs: Blood pressure is 157/69, heart rate 66, respiratory rate 16, room air saturation 96%. Temperature 98.1. 4. Pain intensity 6-7/10. 5. Fall history: The patient has not fallen in the last 3 months. 6. Blood thinner. The patient is not on a blood thinning medication. 7. Hypertension. The patient is being treated for hypertension. 8. Opioid greater than 6 weeks. The patient receives her medication from one source, the pain clinic. 9. Risk assessment tool, low for opioid use. 10. [place] [address] PAIN MANAGEMENT CONSULTATION Name: RENNY LUCAS Room: [facility]#: [id number] Admission: 03/25/18 Attend Phys: Garo Fields MD Discharge: Date of : 37 Report #: [id number] 11. Recreational drug use. The patient denies use of recreational drugs. 12. Tobacco: The patient denies use of tobacco. 13. Alcohol: The patient denies use of alcoholic beverages. PHYSICAL EXAMINATION: GENERAL: The patient is a well-developed, well-nourished white female. Appears her stated age. She is alert and oriented x 3. Her affect is appropriate. Speech is fluent. HEENT: Normocephalic, atraumatic. Extraocular eye muscles intact. Sclerae nonicteric. Mucous membranes are moist. The patient wears glasses. NECK: Without JVD, bruits, or adenopathy. Good range of motion. LUNGS: Clear to auscultation without rhonchi or rales. ABDOMEN: Nontender, scaphoid. Bowel sounds present. MUSCULOSKELETAL: Without significant scoliosis, kyphosis or lordosis. The patient has pain and discomfort in the lower portion of her back with radiating down into the lower portion of the lumbar spine. Pain is exacerbated with prolonged walking and standing. Notes improvement when rests. Findings consistent with spinal stenosis. IMPRESSION: 1. 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 2. Significant spinal stenosis at L3-L4 and L4-5/bilateral neural foraminal stenosis at all levels of the lumbar spine. 3. Hypothyroidism. 4. Hypercholesterolemia. 5. Insomnia. 6. New onset of diabetes. RECOMMENDATIONS: We discussed treatment options with the patient. We will continue with her current medical regimen. A script for her medications zolpidem 5 mg at bedtime, hydrocodone 10/325 one p.o. q.i.d. have been written. The patient will call us if she has any concerns with her medications. We would like to thank you for letting us participate in her care. We hope she continues to improve. By: [id number]. González Fields MD /nt
== END ==
LOC: M.PC 01:38
DX: M47.816 Spondylosis without myelopathy or radiculopathy, lumbar region (principal); M43.16 Spondylolisthesis, lumbar region; M48.061 Spinal stenosis, lumbar region without neurogenic claudication; E03.9 Hypothyroidism, unspecified; E78.00 Pure hypercholesterolemia, unspecified; G47.00 Insomnia, unspecified; E11.9 Type 2 diabetes mellitus without complications; Z79.899 Other long term (current) drug therapy

== ENCOUNTER → 2018-03-26 | Outpatient (CLI) | payer OTHER ==
[2018-03-26 08:46] LABS: CREATININE 0.8 mg/dL (0.6-1.3)
[2018-03-26 11:07] VITALS: BP 211/83
[2018-03-26 11:56] VITALS: BP 151/69
== END ==
LOC: M.LAB 08:04 → M.CT 08:30
PROVIDERS: Registered Nurse
DX: I73.9 Peripheral vascular disease, unspecified (principal); E11.65 Type 2 diabetes mellitus with hyperglycemia

== ENCOUNTER → 2018-04-13 | Outpatient (CLI) | payer OTHER | LOC: M.CT 08:34 | DX: I70.203 Unspecified atherosclerosis of native arteries of extremities, bilateral legs (principal); I70.1 Atherosclerosis of renal artery; K76.0 Fatty (change of) liver, not elsewhere classified; I70.0 Atherosclerosis of aorta; M25.78 Osteophyte, vertebrae ==

== ENCOUNTER → 2018-04-22 | Outpatient (CLI) | payer OTHER ==
--- NOTE | ~2018-04-22 | PAINCON ---
[facility] [address] [place] [address] PAIN MANAGEMENT CONSULTATION Name: RENNY LUCAS Room: [facility]LLIE Bhatt#: [id number] Admission: 04/22/18 Attend Phys: Garo Fields MD Discharge: Date of : 37 Report #: [id number] THIS REPORT FOR: //name// CC: Alvina Fields DATE OF SERVICE: 04/22/2018 CHIEF COMPLAINT: Here for medicine renew. HISTORY: The patient is an 82-year-old female who has been followed in the pain clinic because of chronic pain. She suffered from spinal stenosis. Has spondylolisthesis, has undergone epidural steroid injections, which over time became less effective. At this juncture, she has been treated with a conservative approach using opioid medications. She finds that these medications are helpful. Does have some problems with sleep. Finds that Ambien is helpful. She would like to have a higher dose of Ambien, but we have had a discussion of recommended dosing. She also finds hydrocodone beneficial. She has been found to have some arterial blockage. She has an appointment with a vascular surgeon in about 2 weeks. Feels that her pain medicines are tolerable. She feels that with her medication she is able to do activities, she would not be able to without their use. Continue to monitor her blood pressure at home, which has been elevated at times. ALLERGIES: No known drug allergies. CURRENT MEDICATIONS: Gabapentin 300 mg t.i.d., multivitamin, vitamin D, hydrocodone 10/325 one p.o. q.i.d., Synthroid 0.25 mg, Remeron 50 mg, Zocor 40 mg, zolpidem 5 mg at bedtime, metoprolol 25 mg in the evening, multivitamin D 1000 international units, lisinopril 20 mg/12.5, alprazolam 0.5 mg, Celexa 10 mg one half tablet daily, Clomid, clonidine 0.1 mg, pantoprazole. PAIN CLINIC ASSESSMENT/PQRS: 1. 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 She is not being treated for rheumatoid arthritis. 2. Height 5 feet 4 inches, weight 114 pounds, BMI is 20. 3. Vital Signs: Blood pressure 141/71, heart rate 62, respiratory rate 16, room air saturation 97%, temperature 98.0. 4. Pain intensity 7/10. 5. Fall risk. The patient has not fallen in the last 3 months. 6. Blood thinner. The patient is not on a blood thinning medication. 7. Hypertension. The patient is being treated for hypertension. 8. Opioid greater than 6 weeks. 9. The patient has received medications from one source, the pain clinic. 10. Risk assessment tool, [place] [address] PAIN MANAGEMENT CONSULTATION Name: RENNY LUCAS Room: [facility]#: [id number] Admission: 04/22/18 Attend Phys: Garo Fields MD Discharge: Date of : 37 Report #: [id number] 11. Functional assessment tool. 12. Recreational drug use. The patient denies use of recreational drugs. 13. Tobacco: The patient denies use of tobacco. 14. Alcohol: The patient denies use of alcoholic beverages. PHYSICAL EXAMINATION: GENERAL: The patient is a well-developed, well-nourished white female. Appears her stated age. She is alert and oriented x 3. Her affect is appropriate. Speech is fluent. HEENT: Normocephalic, atraumatic. Extraocular eye muscles intact. Sclerae nonicteric. The patient is wearing glasses. NECK: Without JVD or adenopathy. Good range of motion. LUNGS: Clear to auscultation. ABDOMEN: Nontender, scaphoid. Bowel sounds present. MUSCULOSKELETAL: Without significant scoliosis, kyphosis or lordosis. The patient walks with a slow careful motion in upright position. Use her hands go from a sitting to a standing position. Pain is exacerbated by prolonged standing and prolonged walking. Clinical findings consistent with spinal stenosis. IMPRESSION: 1. 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 2. Significant spinal stenosis at L3-L4 and bilateral neural foraminal stenosis at all levels of the lumbar spine. 2. Hypothyroidism. 3. Hypercholesterolemia. 4. Insomnia. 5. New onset of diabetes. RECOMMENDATIONS: We discussed treatment options with the patient. At this juncture, we will continue with her medications. A script for her medications of Ambien and hydrocodone have been released. The patient is scheduled to follow up with a vascular physician in the near future. We would like to thank you for letting us participate in her care. Hopefully, things continue to go well. By: [id number]. González Fields MD /PEPE
== END ==
LOC: M.PC 09:58
DX: M48.061 Spinal stenosis, lumbar region without neurogenic claudication (principal); I10 Essential (primary) hypertension; Z79.899 Other long term (current) drug therapy; Z79.891 Long term (current) use of opiate analgesic; Z68.20 Body mass index [BMI] 20.0-20.9, adult; Z91.81 History of falling

== ENCOUNTER → 2018-05-20 | Outpatient (CLI) | payer OTHER ==
--- NOTE | 2018-05-25 09:15 | PAINCON ---
[address] [address] PAIN MANAGEMENT CONSULTATION Name: RENNY LUCAS Room: [facility] Miller#: [id number] Admission: 05/20/18 Attend Phys: Garo Fields MD Discharge: Date of : 37 Report #: [id number] THIS REPORT FOR: //name// CC: Alvina Fields DATE OF SERVICE: 05/20/2018 PRIMARY CARE PHYSICIAN: Ms. Alvina Cole. CHIEF COMPLAINT: Here for medications to be renewed. HISTORY OF PRESENT ILLNESS: The patient is an 82-year-old female who has been followed in the pain clinic because of chronic pain. As you may recall, she has significant problems with spinal stenosis. Has spondylolisthesis. Epidural steroid injections in the past were helpful. At this juncture, they are not as effective. She feels that her medications of hydrocodone and gabapentin in conjunction with zolpidem are helpful. She has returned to the pain clinic for renewal of her medications. ALLERGIES: No known drug allergies. CURRENT MEDICATIONS: Gabapentin 300 mg t.i.d., multivitamin, vitamin D, hydrocodone 10/325 1 p.o. q.i.d., Synthroid 0.25 mg, Remeron 15 mg, Zocor 40 mg, zolpidem t.i.d. 5 mg at bedtime, metoprolol 25 mg, multivitamin 1000 international units, lisinopril 20 mg/12.5, alprazolam 0.5 mg, Celexa 10 mg one half tablet daily, Clomid, clonidine 0.1 mg, pantoprazole. PAIN CLINIC ASSESSMENT AND PQRS: 1. The patient has some changes in her low back area with spinal stenosis. She has not been treated for rheumatoid arthritis. 2. Height 5 feet 4 inches, weight 115 pounds, BMI is 19.5. 3. Vital Signs: Blood pressure 141/70, heart rate 60, respiratory rate 16, room air saturation 96%, and temperature 97.8. 4. Pain intensity, 10. 5. Fall history. The patient has not fallen in the last 3 months. 6. Blood thinner. The patient is not on a blood thinning medication. 7. Hypertension. The patient is being treated for hypertension. 8. Opioids greater than 6 weeks. The patient receives her medication from one source, the pain clinic. 9. Risk assessment tool, low for opioid use. 10. Functional assessment tool. 11. Recreational drug use. The patient denies use of recreational drugs. 12. Tobacco: The patient denies use of tobacco. 13. Alcohol: The [place] [address] PAIN MANAGEMENT CONSULTATION Name: RENNY LUCAS Room: [facility]#: [id number] Admission: 05/20/18 Attend Phys: Garo Fields MD Discharge: Date of : 37 Report #: [id number] PHYSICAL EXAMINATION: GENERAL: The patient is a well-developed, thin, white female. Appears her stated age. She is alert and oriented x 3. Her affect is appropriate. Speech is fluent. HEENT: Normocephalic, atraumatic. Extraocular eye muscles intact. The patient is wearing glasses. NECK: Without adenopathy or JVD. Good range of motion. LUNGS: Clear to auscultation without rhonchi or rales. ABDOMEN: Scaphoid. Bowel sounds present. MUSCULOSKELETAL: Without significant scoliosis, kyphosis or lordosis. The patient walks slow and in a cautious motion. Uses her hands to go from a sitting position to a standing position. Notes increased pain and discomfort with prolonged standing. Findings consistent with spinal stenosis. IMPRESSION: 1. Multiple level spondylosis without myelopathy. 2. Significant spinal stenosis at L3-L4 and bilateral neural foraminal stenosis at all levels of lumbar spine. 3. Hypothyroidism. The patient states that she continues to have hot and cold episodes and is going to be followed by the fashion director party plan sales. 4. Hypercholesterolemia. 5. Insomnia. 6. New onset diabetes. 7. Vascular problems with the left femoral graft possibility. RECOMMENDATIONS: We discussed treatment options with the patient. We will continue with her current medications. She feels that the medications overall are working reasonably well. She would like to have the medications renewed. A script for her hydrocodone 10 mg 1 p.o. q.i.d., zolpidem 5 mg at bedtime have been written. She will call us if she has any concerns. We would like to thank you for letting us participate in her care. We hope she continues to improve. <ELECTRONICALLY SIGNED> By: Garo Fields MD 05/25/18 0915 [id number]. González Fields MD /PEPE
== END ==
LOC: M.PC 05:26
DX: M48.061 Spinal stenosis, lumbar region without neurogenic claudication (principal); M47.816 Spondylosis without myelopathy or radiculopathy, lumbar region; E03.9 Hypothyroidism, unspecified; E78.00 Pure hypercholesterolemia, unspecified; E11.9 Type 2 diabetes mellitus without complications; G47.00 Insomnia, unspecified; G89.29 Other chronic pain

== ENCOUNTER → 2018-06-17 | Outpatient (CLI) | payer OTHER ==
--- NOTE | 2018-06-22 09:30 | PAINCON ---
[address] [address] PAIN MANAGEMENT CONSULTATION Name: RENNY LUCAS Room: [facility] Miller#: [id number] Admission: 06/17/18 Attend Phys: Garo Fields MD Discharge: Date of : 37 Report #: [id number] THIS REPORT FOR: //name// CC: Alvina Fields DATE OF SERVICE: 06/17/2018 PRIMARY CARE PHYSICIAN: Alvina Cole NP CHIEF COMPLAINT: "Here for medications. I still feel like my thyroid is not working well." HISTORY: The patient is an 82-year-old female who has been followed in the pain clinic. As you recall, she has a history of spinal stenosis. Notes that over the last month, she has been up and more active. As a result of that, she has noted some worsening of her back pain. As you recall, she finds that hydrocodone is helpful. She has undergone treatments in the past with epidural injections and they have been less fruitful. Overall, she feels that the hydrocodone and Ambien her medications are helpful. She has returned today for renewal of the medications. She has had no significant change in her back pain. Has noted that she continues to feel listless, tired with hot and cold sensations. States that she was told that it might be secondary to hormonal changes. States that she has undergone the change many years ago. She does not feel that it is age. ALLERGIES: No known drug allergies. CURRENT MEDICATIONS: Gabapentin 300 mg t.i.d., multivitamins, vitamin D, hydrocodone 10/325 one p.o. q.i.d., Synthroid 0.25 mg, Remeron 15 mg, Zocor 40 mg, zolpidem t.i.d. 5 mg at bedtime, metoprolol 25 mg, multivitamins 1000 international units, lisinopril 20 mg/12.5, alprazolam 0.5 mg, Celexa 10 mg one tablet daily, Clomid, clonidine 0.1 mg, and pantoprazole. PAIN CLINIC ASSESSMENT/PQRS: 1. The patient is not being treated for rheumatoid arthritis. She has some arthritic changes in her lower spinal area with spinal stenosis. 2. Height 5 feet 4 inches, weight 109 pounds, BMI is 18. 3. Vital signs: Blood pressure 166/71, heart rate 64, respiratory rate 16, room air saturation 98%, temperature 97.7. 4. Pain intensity 4/10. 5. Fall history: The patient has not fallen in the last 3 months. 6. Blood thinner. The patient is not on a blood thinning medication. 7. Hypertension. The patient is being treated for hypertension. 8. Opioid greater than 6 weeks. The patient receives her medication from one source, [place] [address] PAIN MANAGEMENT CONSULTATION Name: RENNY LUCAS Room: [facility]#: [id number] Admission: 06/17/18 Attend Phys: Garo Fields MD Discharge: Date of : 37 Report #: [id number] 9. Risk assessment tool, low for opioid use. 10. Functional assessment tool. 11. Recreational drug use. The patient denies use of recreational drugs. 12. Alcohol: The patient denies use of alcohol. 13. Tobacco. The patient denies use of tobacco. PHYSICAL EXAMINATION: GENERAL: The patient is a well-developed, well-nourished white female. Appears her stated age. She is alert and oriented x 3. Her affect is appropriate. Speech is fluent. The patient has glasses on. HEENT: Normocephalic, atraumatic. Extraocular eye muscles intact. Sclerae nonicteric. NECK: The patient is without adenopathy or JVD. Good range of motion. LUNGS: Clear to auscultation without rhonchi or rales. ABDOMEN: Scaphoid. Bowel sounds present. MUSCULOSKELETAL: Without significant scoliosis, kyphosis or lordosis. The patient moves slowly. Use her hands to move from a sitting to a standing position. Complains of pain with prolonged standing. Findings consistent with spinal stenosis. IMPRESSION: 1. Multiple level spondylosis without myelopathy. 2. Significant spinal stenosis at L3-L4 with bilateral neural foraminal stenosis at all level of the lumbar spine. 3. Hypothyroidism. The patient states she continues to feel that her hot and cold symptomatology is associated with her thyroid. She is to see a new watershed engineer in a week or so. 4. Hypercholesterolemia. 5. Insomnia. 6. New onset diabetes. 7. Vascular problem with left femoral graft possibility. RECOMMENDATIONS: We discussed treatment options with the patient. Risks and benefits of opioid medications were discussed. They include dependency as well as less benefit secondary to development of tolerance. The patient feels her medication is helpful. Feels that the Ambien medication is helpful. She still has problems with sleeping through the night. She would like to have her medications increase. We again explained the reasoning between the lower levels of Ambien. Overall, things are going reasonably well and she would like to have her medications renewed done. The patient's medications have been renewed. A script for Ambien 5 mg 1 p.o. at bedtime and hydrocodone 10/325 one p.o. q.i.d. have been renewed. [facility] [address] [place] [address] PAIN MANAGEMENT CONSULTATION Name: RENNY LUCAS Room: [facility]#: [id number] Admission: 06/17/18 Attend Phys: Garo Fields MD Discharge: Date of : 37 Report #: [id number] We would like to thank you for letting us participate in her care. We hope she continues to improve. <ELECTRONICALLY SIGNED> By: Garo Fields MD 06/22/18 0930 [id number] 1300N. González Fields MD /PMT
== END ==
LOC: M.PC 04:54
DX: E03.9 Hypothyroidism, unspecified (principal); M47.816 Spondylosis without myelopathy or radiculopathy, lumbar region; M48.061 Spinal stenosis, lumbar region without neurogenic claudication; E78.00 Pure hypercholesterolemia, unspecified; I10 Essential (primary) hypertension; E11.9 Type 2 diabetes mellitus without complications; G47.00 Insomnia, unspecified; Z79.899 Other long term (current) drug therapy; Z79.891 Long term (current) use of opiate analgesic

== ENCOUNTER → 2018-07-15 | Outpatient (CLI) | payer OTHER ==
--- NOTE | ~2018-07-15 | PAINCON ---
[facility] [address] [place] [address] PAIN MANAGEMENT CONSULTATION Name: RENNY LUCAS Room: [facility] Miller#: [id number] Admission: 07/15/18 Attend Phys: Garo Fields MD Discharge: Date of : 37 Report #: [id number] THIS REPORT FOR: //name// CC: Alvina Fields DATE OF SERVICE: 07/15/2018 FOLLOWUP COMPLAINT: Here for medications. Things are going okay. HISTORY: The patient is an 82-year-old female who has been followed in the Pain Clinic. She continues to have chronic pain. As you recall, she has significant problem with spinal stenosis. She feels that her medications of hydrocodone are helpful. They are not as helpful as she would like, but she feels that there is an added benefit. She has taken the medication as prescribed. She is taking the medications on a regular basis. Rates her pain as a 7/10 today. There is a change in the weather pattern predicted. Feels that this might have some influence on the pain and discomfort she is experiencing. She notes that the pain is worse when she is walking. ALLERGIES: No known drug allergies. CURRENT MEDICATIONS: Gabapentin 300 mg t.i.d., multivitamins, vitamin D, hydrocodone 10/325 one p.o. q.i.d., Synthroid 0.25 mg, Remeron 15 mg, Zocor 40 mg, zolpidem 5 mg at bedtime, metoprolol 25 mg, multivitamin 1000 international units, lisinopril 20 mg/12.5, alprazolam 0.5 mg, Celexa 10 mg, Clomid, clonidine 0.1 mg, and pantoprazole. PAIN CLINIC ASSESSMENT/PQRS: 1. The patient is not being treated for rheumatoid arthritis. She has some arthritic change in the lower portion of her back and is suffering from spinal stenosis. She has not been treated for rheumatoid arthritis. 2. Height 5 feet 4 inches, weight is 109 pounds, BMI is 18. 3. Vital Signs: Blood pressure 143/73, heart rate 63, respiratory rate 16, room air saturation 96%, and temperature 97.7. 4. Pain intensity 10/13. 5. Fall history: The patient has not fallen in the last 3 months. 6. Blood thinner. The patient is not on a blood thinning medication. 7. Hypertension. The patient is being treated for hypertension. 8. Opiates greater than 6 weeks. The patient receives her medication from one source, the pain clinic. 9. Risk assessment tool, low for opioids. 10. Functional assessment tool. 11. Recreational drug use. The patient denies use of recreational drugs. 12. Tobacco: The patient denies use of tobacco. 13. Alcohol: The patient denies [place] [address] PAIN MANAGEMENT CONSULTATION Name: RENNY LUCAS Room: [facility]#: [id number] Admission: 07/15/18 Attend Phys: Garo Fields MD Discharge: Date of : 37 Report #: [id number] PHYSICAL EXAMINATION: GENERAL: The patient is a well-developed, well-nourished white female. Appears her stated age. She is alert and oriented x 3. Affect is appropriate. Speech is fluent. HEENT: Normocephalic, atraumatic. Extraocular eye muscles are intact. The patient did not have her glasses on today. HEENT: Normocephalic. Hearing is within normal limits. NECK: Without adenopathy or JVD. Good range of motion. ABDOMEN: Nontender, scaphoid. Bowel sounds present. MUSCULOSKELETAL: Without significant scoliosis, kyphosis or lordosis. The patient ambulates slowly. Uses her hands go from a sitting to a standing position. Muscle strength in lower extremities is judged to be 4+/5 for the muscles in the lower extremity. IMPRESSION: 1. Multiple level spondylosis without myelopathy. 2. Significant spinal stenosis at L3-L4 with bilateral neural foraminal stenosis at all levels of the lumbar spine. 3. Hypothyroidism. The patient states that she is being worked up for her thyroid. 4. Hypercholesterolemia. 5. Insomnia. 6. New onset of diabetes. 7. Vascular problems with the left femoral graft possibility. RECOMMENDATIONS: We discussed treatment options with the patient. At this point, we will continue with her medications. A script for her medications have been rewritten. She will continue with the hydrocodone 10/325 one p.o. q.i.d. The patient will also continue with zolpidem to help with her insomnia. She will call us if she has any concerns. Overall, things are going reasonably well. We would like to thank you for letting us participate in her care. We hope she continues to improve. A script for her medications have both been rewritten. By: [id number]. González Fields MD /nt
== END ==
LOC: M.PC 04:48
DX: M47.816 Spondylosis without myelopathy or radiculopathy, lumbar region (principal); M48.061 Spinal stenosis, lumbar region without neurogenic claudication; E03.9 Hypothyroidism, unspecified; E78.00 Pure hypercholesterolemia, unspecified; E11.9 Type 2 diabetes mellitus without complications; Z79.899 Other long term (current) drug therapy

== ENCOUNTER → 2018-08-12 | Outpatient (CLI) | payer OTHER ==
--- NOTE | ~2018-08-12 | PAINCON ---
[facility] [address] [place] [address] PAIN MANAGEMENT CONSULTATION Name: RENNY LUCAS Room: [facility] HOLLIE Bhatt#: [id number] Admission: 08/12/18 Attend Phys: Garo Fields MD Discharge: Date of : 37 Report #: [id number] THIS REPORT FOR: //name// CC: Alvina Fields DATE OF SERVICE: 08/12/2018 FOLLOWUP HISTORY: Here for medication renewal. Still having low back pain. HISTORY OF PRESENT ILLNESS: The patient is an 82-year-old female who has been followed in the pain clinic. Continues to have pain, which is problematic. She has significant spinal stenosis. Finds her medications are helpful. Notes that her pain had been much worse over the past month. Rates it as a 5/10. Continues to use her [place] as directed. Also, finds that the Ambien is helpful with sleep. She still feels that she would like to have a little higher dose, but is aware of the requirements. She feels that her pain is about 50% improved overall. She has had no complications from her medications. Notes that her pain is worse with activity and increases with walking. Medications, use of heat and rest are helpful. Denies any new bowel or bladder dysfunction. She has not had any new injuries. ALLERGIES: No known drug allergies. CURRENT MEDICATIONS: Gabapentin 300 mg t.i.d., multivitamins, vitamin D, hydrocodone 10/325 one p.o. q.i.d., Synthroid 0.25 mg, Remeron 15 mg, Zocor 40 mg, zolpidem 5 mg at bedtime, metoprolol 25 mg, multivitamins, lisinopril 20 mg/12.5, alprazolam 0.5 mg, Celexa 10 mg, Clomid, clonidine 0.1 mg, and pantoprazole. PAIN CLINIC ASSESSMENT/PQRS: 1. The patient has not been treated for rheumatoid arthritis. She does have arthritic changes in the lower portion of her back with significant spinal stenosis. 2. Height 5 feet 4 inches, weight 106 pounds, BMI is 18.6. 3. VITAL SIGNS: Blood pressure 156/68, heart rate 60, respiratory rate 16, room air saturation 98%, and temperature is 97.5. 4. Pain intensity 10. 5. Fall history. The patient has not fallen in the last 3 months. 6. Blood thinner, the patient is not on a blood thinning medication. 7. Hypertension. The patient is being treated for hypertension. 8. Opioids greater than 6 weeks. The patient receives her medication from the pain clinic. 9. Risk assessment tool, low for opioid use. 10. Functional assessment tool. 11. Recreational drug use. The patient [place] [address] PAIN MANAGEMENT CONSULTATION Name: RENNY LUCAS Room: [facility]#: [id number] Admission: 08/12/18 Attend Phys: Garo Fields MD Discharge: Date of : 37 Report #: [id number] 12. Tobacco: The patient denies use of tobacco. PHYSICAL EXAMINATION: GENERAL: The patient is well-developed, thin, white female. Appears her stated age of 82. She is alert and oriented x 3. Her affect is appropriate. Speech is fluent. HEENT: Normocephalic, atraumatic. Extraocular eye muscles intact. Sclerae nonicteric. Mucous membranes are moist. NECK: Without adenopathy or JVD. ABDOMEN: Nontender, scaphoid. Bowel sounds present. MUSCULOSKELETAL: Without significant scoliosis, kyphosis or lordosis. The patient moves and ambulate slowly. Moves from her sitting position to a standing position using her hands. Upper extremity muscle strength judged to be 5+/5. Lower extremity muscle strength 4+/5 as well. IMPRESSION: 1. 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 2. Significant spinal stenosis at L3-L4 with bilateral neural foraminal stenosis at all level of the lumbar spine. 3. Hypothyroidism. The patient is continued to be followed by her primary. 4. Hypercholesterolemia. 5. Insomnia. 6. New onset of diabetes. 7. Vascular problems with the left femoral graft, possibility. RECOMMENDATIONS: We discussed treatment options with the patient. At this juncture, her medication is helpful. Is not helpful as she would like. Overall, she continues to take the medication as prescribed, ____ enables her to do other activities, she would not be able to without its use. Still has some problem with sleeping and is aware that zolpidem is recommended for the dose for her to help with her insomnia. She will continue with her medications. A script for her medications has been rewritten. She will continue with hydrocodone 10 mg/325 one p.o. q.i.d., the patient would continue with Ambien 5 mg 1 p.o. at bedtime. We would like to thank you for letting us participate in her care. We hope she continues to improve. By: [id number]. González Fields MD /nt
== END ==
LOC: M.PC 05:08
DX: M47.816 Spondylosis without myelopathy or radiculopathy, lumbar region (principal); E03.9 Hypothyroidism, unspecified; E78.00 Pure hypercholesterolemia, unspecified; I10 Essential (primary) hypertension; Z79.899 Other long term (current) drug therapy; Z79.891 Long term (current) use of opiate analgesic

== ENCOUNTER → 2018-08-19 | Outpatient (CLI) | payer OTHER | LOC: M.ULTRA 08:38 | DX: K82.8 Other specified diseases of gallbladder (principal); I10 Essential (primary) hypertension; E11.65 Type 2 diabetes mellitus with hyperglycemia; I73.9 Peripheral vascular disease, unspecified; K59.00 Constipation, unspecified; R63.4 Abnormal weight loss ==

== ENCOUNTER → 2018-08-19 | Outpatient (CLI) | payer OTHER | LOC: M.MRI 12:20 | DX: I67.82 Cerebral ischemia (principal); K59.00 Constipation, unspecified; E11.65 Type 2 diabetes mellitus with hyperglycemia; E03.9 Hypothyroidism, unspecified; I73.9 Peripheral vascular disease, unspecified ==

== ENCOUNTER → 2018-08-25 | Outpatient (CLI) | payer OTHER | LOC: M.RAD 12:35 | DX: R63.4 Abnormal weight loss (principal); K59.00 Constipation, unspecified; E11.65 Type 2 diabetes mellitus with hyperglycemia; I73.9 Peripheral vascular disease, unspecified; Z95.0 Presence of cardiac pacemaker ==

== ENCOUNTER → 2019-01-03 | Outpatient (CLI) | payer OTHER | LOC: M.CT 12-21 07:47 → M.NUC 12-29 07:45 → M.CT 12-29 07:45 | DX: K59.00 Constipation, unspecified (principal); J43.9 Emphysema, unspecified; M48.55XA Collapsed vertebra, not elsewhere classified, thoracolumbar region, initial encounter for fracture ==

== ENCOUNTER 2020-04-19 00:54 | Inpatient (IN) | payer MEDICARE, MEDICAID ==
[~2020-04-19] VITALS: Ht 165.1 cm; Wt 60.0 kg
[2020-04-19] VITALS (25 sets, daily range): BP systolic 131–191; BP diastolic 65–100
[2020-04-19 01:29] LABS: ABSOLUTE BASOPHILS 0.1 thou/uL (0.0-0.2); ABSOLUTE LYMPHOCYTES 1.2 thou/uL (0.8-5.3); ABSOLUTE NEUTROPHILS 11.8 thou/uL (1.6-8.1); BASOPHILS 0.7 %; HEMATOCRIT 39.1 % (37.0-47.0); HEMOGLOBIN 12.8 gm/dL (12.0-15.0); LYMPHOCYTES 8.4 %; MCHC 32.8 g/dL (28.0-37.0); MCV 91.5 fL (80.0-100.0); MONOCYTES 7.4 %; MPV 8.3 fl. (7.2-11.1); NUCLEATED RBCS 0 /100WBC; PLATELET COUNT* 381 thou/uL (150-400); POLYS 83.5 %; RBC 4.27 mil/uL (4.20-5.00); RDW-CV 13.9 % (10.5-14.5); WBC 14.1 thou/uL (4.0-11.0)
[2020-04-19 01:36] LABS: CALCIUM 8.9 mg/dL (8.5-10.1); CREATININE 2.2 mg/dL (0.6-1.3); POTASSIUM 3.4 mmol/L (3.5-5.1)
[2020-04-19] MEDS ORDERED: DILTIAZEM ER180 M2 PO (01:39)
[2020-04-19] MEDS ORDERED: DECADRON6 MG PO (01:39)
[2020-04-19] MEDS ORDERED: LOVENOX40 MG/0.4 SUBQ (01:40)
[2020-04-19 01:41] LABS: MAGNESIUM 2.6 mg/dL (1.8-2.4); TOTAL BILIRUBIN 0.6 mg/dL (<0.1-1.0); TOTAL PROTEIN 7.1 g/dL (6.4-8.2)
[2020-04-19] MEDS ORDERED: FAMOTIDINE 20 M20 MG PO (01:41)
[2020-04-19] MEDS ORDERED: HYDROCHLOROTHIA25 M2 PO (01:41)
[2020-04-19] MEDS ORDERED: LISINOPRIL20 MG PO (01:42)
[2020-04-19] MEDS ORDERED: MELATONIN10 M3 PO (01:42)
[2020-04-19] MEDS ORDERED: MYRBETRIQ25 MG PO (01:43)
[2020-04-19] MEDS ORDERED: VISTARIL 25 MG25 M1 PO (01:44)
[2020-04-19 02:00] LABS: BE 1.5 mmol/L (-2 to +3); PCO2 32.8 mmHg (35.0-45.0); pH 7.487 (7.340-7.450)
[2020-04-19 02:01] LABS: PO2 56.8 mmHg (75.0-100.0)
[2020-04-19 04:41] LABS: URINE BILIRUBIN NEGATIVE (Negative); URINE BLOOD 1+ (Negative); URINE CLARITY CLEAR; URINE COLOR YELLOW; URINE GLUCOSE-RANDOM NEGATIVE (Negative); URINE KETONES TRACE (Negative); URINE LEUKOCYTES-REFLEX 1+ (Negative); URINE NITRITE-REFLEX NEGATIVE (Negative); URINE PROTEIN 1+ (Negative); URINE UROBILINOGEN 0.2 E.U./dl (0.2-1.0)
[2020-04-19 05:05] LABS: BACTERIA-REFLEX >30 Many /HPF (None Seen); CASTS None Seen /LPF (None Seen); MUCUS 0-3 Light strn/LPF (None Seen); SQUAMOUS 0-3 Few /LPF (0-3); URINE RBC 3-10 Few /HPF (0-2); URINE WBC-REFLEX 6-15 Few /HPF (0-5)
[2020-04-19 05:06] LABS: TRIPLE PHOSPHATE CRYSTALS 0-3 Few /LPF (None Seen)
[2020-04-19 06:31] LABS: PCO2 31.7 mmHg (35.0-45.0); PO2 66.7 mmHg (75.0-100.0); pH 7.393 (7.340-7.450)
--- NOTE | 2020-04-19 07:58 | CARD ---
[address] [address] CARDIAC CATH REPORT Name: RENNY LUCAS Room: [place] [address] ADM IN R.#: [id number] Admission: 04/19/20 Attend Phys: Neris Whitfield Discharge: Date of : 37 Report #: [id number] THIS REPORT FOR: cc: Lalo Mohan MD, Todd A. MD ~ Gerardo Moreno MD [facility] APPROVED REPORT Study performed: 04/19/2020 05:43:12 Patient Details Patient Status: ED Room #: The patient is a 84 year-old female Event Personnel Gerardo Moreno Log Yard Derrick Operator, Dave Mg RN Mucker Operator, Mari Dwyer RN Monitor, Chema Joe VP COMPLIANCE Scrub Procedures Performed Art Access - R femoral artery* Left Heart Cath w/or w/o Coronaries Hemostasis w/ Mynx Indication Abnormal ECG, Non-STEMI , Dyspnea Risk Factors Hypercholesterolemia, Hypertension Admission/Lab Medications/Medications given during procedure Heparin Unfract. Procedure Narrative The patient was brought emergently to the Cardiac Catheterization Laboratory and was prepped and draped in a sterile manner. The right femoral was infiltrated with 1% Lidocaine subcutaneous anesthesia. A [place] 6 FR sheath was inserted into the right femoral artery. Coronary angiography was performed using coronary diagnostic catheters. The right coronary system was accessed and visualized with a Diagnostic JR4 catheter. The left coronary system was accessed and visualized with a Diagnostic JL4 catheter. The left ventricle was accessed and visualized with a Diagnostic catheter. Left ventricular/Aortic Valve gradient assessed via catheter pullback. Closure device was deployed with a 6 Fr Mynx. The patient tolerated [facility] [address] [place] [address] CARDIAC CATH REPORT Name: LANCERENNY Gurvinder Room: [address] IN [facility]#: [id number] Admission: 04/19/20 Attend Phys: Neris Whitfield Discharge: Date of : 37 Report #: [id number] the procedure well and there were no complications associated with the procedure. A hematoma occurred. Intraoperative Conscious Sedation Case start 6:14 Case end 06:33 no sedation Fluoro Time: 0.9 minutes Dose: DAP 82670 cGycm2 218 mGy Contrast Type and Amount: Visipaque 50 ml Coronary Angiography The patient's coronary anatomy is right dominant. Diagnostic Cath Left Main 0% stenosis LAD 0% stenosis Circumflex 0% stenosis Right Coronary 30% mid stenosis R PDA 60% mid stenosis Left Ventriculography Left Ventriculography was not performed. Hemodynamics The aortic pressure is 182/74 mmHg with a mean of 117 mmHg. The left ventricular pressure is 176/20 mmHg with a mean of mmHg. The left ventricular end diastolic pressure is 30 mmHg. There was no gradient across the aortic valve upon pullback. Pullback from the left ventricle to the aorta revealed no gradient across the aortic valve. Conclusion 1. no significant CAD Recommendations rule out stress induced cardiomyopathy. Consider echocardiography. <ELECTRONICALLY SIGNED> By: Gerardo Moreno MD, FACC 04/19/20757 7 075Damela Moreno MD, FACC /INF
--- NOTE | 2020-04-19 12:46 | CON ---
[address] [address] CONSULTATION Name: RENNY LUCAS Room: [address] IN M.R.#: [id number] Admission: 04/19/20 Attend Phys: Neris Whitfield Discharge: Date of : 37 Report #: [id number] THIS REPORT FOR: cc: Lalo Mohan MD, Todd A. MD ~ Gerardo Moreno MD [facility] DATE OF SERVICE: 04/19/2020 CARDIOLOGY CONSULTATION HISTORY OF PRESENT ILLNESS: The patient is an 84-year-old white female who I was asked to see in the hospital today after she was noted to have an abnormal ECG. The patient has a history of hypertension, hyperlipidemia. She actually presented in 2016 with dizziness and was noted to have a sinus pause of 4 seconds with evidence of complete heart block. I subsequently inserted a permanent dual chamber pacemaker at that time. She presented with syncope. She does have a history of chronic back pain and goes to the Pain Clinic. The patient was admitted here in 06/2017 with colitis, nausea and vomiting. EGD showed esophagitis and hemorrhoids. The patient recently has been at [facility] with COVID-19. She was brought to the Emergency Room at 4:00 a.m. this morning with hypoxia. She complained of being short of breath and weak. She was noted to have an abnormal ECG. Cardiology consultation was requested. She denies any chest pain, palpitations, fever. PAST MEDICAL HISTORY: Otherwise significant for hypertension, hyperlipidemia, anxiety, chronic back pain. MEDICATIONS: At the [facility] include hydrocodone, Decadron, diltiazem, Lovenox, hydrochlorothiazide, lisinopril, Zocor, metoprolol, Xanax, clonidine. ALLERGIES: She has no known drug allergies. SOCIAL HISTORY: She is . She does not smoke. REVIEW OF SYSTEMS: No history of stroke, asthma, liver disease, kidney disease, psychiatric illness or chronic skin condition. PHYSICAL EXAMINATION: VITAL SIGNS: On admission, blood pressure was 160/80, pulse is 80, temperature 100.5, respirations nonlabored. HEENT: She was anicteric. Conjunctivae are pink. Mucous membranes moist. NECK: Veins do not appear distended. No carotid bruits. CHEST: Clear to auscultation. CARDIOVASCULAR: Regular rate [place] [address] CONSULTATION Name: RENNY LUCAS Room: [address]#: [id number] Admission: 04/19/20 Attend Phys: Neris Whitfield Discharge: Date of : 37 Report #: [id number] ABDOMEN: Soft. EXTREMITIES: Had no edema. Posterior tibial pulse 2+ bilaterally. SKIN: Cool and dry. NEUROLOGIC: She is able to move all extremities. She is oriented to time and place. RADIOLOGICAL DATA: ECG showed a sinus rhythm, occasional PVC. There was ST-segment elevation of a millimeter in leads II, III, aVF as well as V6, reciprocal ST-segment depression in lead V1, V2 and V3. Workup in the Emergency Room today, she had a portable chest x-ray that showed evidence of a pacemaker, bilateral interstitial infiltrates consistent with interstitial pneumonia. LABORATORY WORK: Sodium 135; BUN 92; creatinine is 2.2, in the past has only been 0.7. Her troponin on admission was 3.23. Her white blood cell count 14.1, hemoglobin 12.8. IMPRESSION AND RECOMMENDATIONS: 1. COVID-19 pneumonia. 2. Abnormal ECG. Recommend urgent cardiac catheterization. 3. Elevated troponin, suspect type 2 myocardial infarction. 4. Hypertension. The patient has been on calcium joshua, diuretic, GERALD inhibitor, and beta-joshua. 5. Hyperlipidemia. The patient is on a statin drug. 6. Prerenal insufficiency. Suspect dehydration. 7. History of high-degree atrioventricular block. The patient has a dual-chamber pacemaker in place. <ELECTRONICALLY SIGNED> By: Gerardo Moreno MD, FACC 04/19/20 1246 0644 0657Gerardo Moreno MD, FACC /nt
--- NOTE | 2020-04-19 13:39 | EKG ---
[place] [address] ELECTROCARDIOGRAM REPORT Name: RENNY LUCAS Room: [address] ADM IN M.R.#: [id number] Admission: 04/19/20 Attend Phys: Charles Mari Discharge: Date of : 39 Date of Service: 04/19/20 0320 Report #: [id number] THIS REPORT FOR: //name// [facility] ED Test Date: 2020-04-19 Test Time: 03:20:02 Pat Name: RENNY LUCAS Department: Room: [facility] Gender: F Rehabilitation Liaison: [place] : 1935 Requested By: Yen Maldonado Order Number: [id number] MD: Vincent Law Measurements Intervals [place] Rate: 86 P: 98 WA: 137 QRS: 76 QRSD: 99 T: -65 QT: 376 QTc: 450 Interpretive Statements Sinus rhythm Multiple premature complexes, vent & supraven Probable left ventricular hypertrophy Borderline T abnormalities, inferior leads ST elevation, consider lateral injury Compared to ECG 06/16/2017 16:38:28 T-wave abnormality now present ST (T wave) deviation now present Myocardial infarct finding now present Electronically Signed On 04-19-2020 13:39:18 OPERATOR by Vincent Law [email or web address] <ELECTRONICALLY SIGNED> By: Vincent Law MD, [facility] 04/19/20 1339 9 9 Vincent Law MD, [facility] /EPI
--- NOTE | 2020-04-19 13:40 | EKG ---
[place] [address] ELECTROCARDIOGRAM REPORT Name: RENNY LUCAS Room: [address] ADM IN M.R.#: [id number] Admission: 04/19/20 Attend Phys: Charles Mari Discharge: Date of : 39 Date of Service: 04/19/20 0445 Report #: [id number] THIS REPORT FOR: //name// [facility] ED Test Date: 2020-04-19 Test Time: 04:45:30 Pat Name: RENNY LUCAS Department: Room: [facility] Gender: F Resource Specialist Teacher: [place] : 1935 Requested By: Yen Maldonado Order Number: [id number] MD: Vincent Law Measurements Intervals [place] Rate: 94 P: 117 AR: 137 QRS: 82 QRSD: 93 T: 36 QT: 362 QTc: 453 Interpretive Statements Sinus tachycardia Multiple premature complexes, vent & supraven Borderline right axis deviation ST elevation, consider inferior injury Compared to ECG 04/19/2020 03:20:02 Sinus rhythm no longer present T-wave abnormality no longer present ST (T wave) deviation still present Myocardial infarct finding still present Electronically Signed On 04-19-2020 13:40:05 ENROLLED NURSE by Vincent Law [email or web address] <ELECTRONICALLY SIGNED> By: Vincent Law MD, [facility] 04/19/20 1340 4 044 Vincent Law MD, [facility] /EPI
--- NOTE | 2020-04-19 16:52 | 2DMMODE ---
[place] [address] 2 D/M-MODE ECHOCARDIOGRAM Name: LANCERENNY F Room: [address] IN .#: [id number] Admission: 04/19/20 Attend Phys: Charles Mari Discharge: Date of : 39 Date of Service: 04/19/20 1651 Report #: [id number] THIS REPORT FOR: cc: Lalo Mohan MD, Todd A. MD [place], Michael J. MD [facility] ~ APPROVED REPORT Study performed: 04/19/2020 15:32:55 EXAM: Comprehensive 2D, Doppler, and color-flow Echocardiogram Patient Location: In-Patient Room #: [facility] Status: routine BSA: 1.54 HR: 72 bpm BP: 153/68 mmHg Rhythm: NSR Other Information Study Quality: Good Indications Acute OH 2D Dimensions IVSd: 8.06 (7-11mm) LVOT Diam: 17.58 (18-24mm) LVDd: 43.26 mm PWd: 8.81 (7-11mm) Ascending Ao: 25.94 (22-36mm) LVDs: 34.56 (25-40mm) Aortic Root: 26.66 mm Volumes Left Atrial Volume (Systole) LA ESV Index: 25.00 mL/m2 Aortic Valve AoV Peak Gelacio.: 1.23 m/s AO Peak Gr.: 6.04 mmHg LVOT Max P.59 mmHg AO Mean Gr.: 3.18 mmHg LVOT Mean P.73 mmHg LVOT Max V: 0.95 m/s AO V2 VTI: 20.91 cm LVOT Mean V: 0.61 m/s HILARIO (VTI): 1.90 cm2 LVOT V1 VTI: 16.40 [place] [address] 2 D/M-MODE ECHOCARDIOGRAM Name: RENNY LUCAS Room: [address] IN .R.#: [id number] Admission: 04/19/20 Attend Phys: Charles Mari Discharge: Date of : 39 Date of Service: 04/19/20 1651 Report #: [id number] Mitral Valve E/A Ratio: 1.38 MV Decel. Time: 109.81 ms MV E Max Gelacio.: 1.18 m/s MV PHT: 31.85 ms MVA (PHT): 6.91 cm2 TDI E/Lateral E': 14.75 E/Medial E': 14.75 Medial E' Gelacio.: 0.08 m/s Lateral E' Gelacio.: 0.08 m/s Pulmonary Valve PV Peak Gelacio.: 0.76 m/s PV Peak Gr.: 2.33 mmHg Tricuspid Valve RAP Estimate: 5.00 mmHg TR Peak Gr.: 51.22 mmHg RVSP: 56.00 mmHg PA Pressure: 56.00 mmHg Left Ventricle The left ventricle is normal size. There is akinesis of the mid to apical inferior anterior septal and lateral manzano with basal wall sparing. There is normal left ventricular wall thickness. Left ventricular systolic function is severely decreased. LVEF is 25-30%. Transmitral Doppler flow pattern suggests impaired LV relaxation. Right Ventricle The right ventricle is normal size. The right ventricular systolic function is normal. Pacemaker lead is present in the right ventricle. Atria The left atrium size is normal. The right atrium size is normal. Aortic Valve Mild aortic valve sclerosis. Mild aortic regurgitation. Mild aortic stenosis. Mitral Valve The mitral valve is normal in structure. Mild mitral regurgitation. No evidence of mitral valve stenosis. Tricuspid Valve The tricuspid valve is normal in structure[place] [address] 2 D/M-MODE ECHOCARDIOGRAM Name: RENNY LUCAS Room: [address] IN [facility]#: [id number] Admission: 04/19/20 Attend Phys: Charles Mari Discharge: Date of : 39 Date of Service: 04/19/20 1651 Report #: [id number] regurgitation. Moderate pulmonary hypertension. Pulmonic Valve The pulmonary valve is normal in structure. Trace pulmonic regurgitation. Great Vessels The aortic root is normal in size. IVC is normal in size and collapses >50% with inspiration. Pericardium There is no pericardial effusion. <Conclusion> There is akinesis of the mid to apical inferior anterior septal and lateral manzano with basal wall sparing. Pacemaker lead is present in the right ventricle. Mild aortic regurgitation. Mild mitral regurgitation. Mild tricuspid regurgitation. Moderate pulmonary hypertension. IVC is normal in size and collapses >50% with inspiration. <ELECTRONICALLY SIGNED> By: Vincent Law MD, FACC 04/19/201650 50 50 Vincent Law MD, FACC /INF
[2020-04-19 18:04] LABS: HEMOGLOBIN 11.2 gm/dL (12.0-15.0); MCH 30.5 pg (26.0-34.0); MCHC 32.9 g/dL (28.0-37.0); MCV 92.7 fL (80.0-100.0); MPV 8.4 fl. (7.2-11.1); NUCLEATED RBCS 0 /100WBC; RBC 3.67 mil/uL (4.20-5.00); RDW-CV 14.2 % (10.5-14.5); WBC 12.5 thou/uL (4.0-11.0)
[2020-04-19 18:12] LABS: ALBUMIN 2.3 g/dL (3.4-5.0); CALCIUM 7.7 mg/dL (8.5-10.1); CREATININE 1.5 mg/dL (0.6-1.3); MAGNESIUM 2.2 mg/dL (1.8-2.4); POTASSIUM 3.9 mmol/L (3.5-5.1); TOTAL BILIRUBIN 0.5 mg/dL (<0.1-1.0); TOTAL PROTEIN 5.9 g/dL (6.4-8.2)
[2020-04-19 18:18] LABS: PLATELET COUNT* 297 thou/uL (150-400)
[2020-04-19 18:26] LABS: APTT 26.7 Seconds (25.0-31.3); INR 1.1; PROTIME 11.2 Seconds (9.20-11.50)
[2020-04-19 18:49] LABS: ABSOLUTE LYMPHOCYTES 0.5 thou/uL (0.8-5.3); ABSOLUTE MONOCYTES 0.3 thou/uL (0.0-1.2); ABSOLUTE NEUTROPHILS 11.8 thou/uL (1.6-8.1); PLATELET ESTIMATE ADEQUATE
[2020-04-20 05:08] LABS: ABSOLUTE LYMPHOCYTES 0.7 thou/uL (0.8-5.3); ABSOLUTE MONOCYTES 0.2 thou/uL (0.0-1.2); ABSOLUTE NEUTROPHILS 6.5 thou/uL (1.6-8.1); BASOPHILS 0.2 %; HEMATOCRIT 32.3 % (37.0-47.0); HEMOGLOBIN 10.7 gm/dL (12.0-15.0); MCH 30.5 pg (26.0-34.0); MCHC 33.2 g/dL (28.0-37.0); MCV 91.6 fL (80.0-100.0); MONOCYTES 2.9 %; MPV 8.5 fl. (7.2-11.1); NUCLEATED RBCS 0 /100WBC; PLATELET COUNT* 319 thou/uL (150-400); POLYS 86.9 %; RBC 3.52 mil/uL (4.20-5.00); RDW-CV 14.1 % (10.5-14.5); WBC 7.4 thou/uL (4.0-11.0)
[2020-04-20 05:28] LABS: CALCIUM 7.9 mg/dL (8.5-10.1); CREATININE 1.5 mg/dL (0.6-1.3); POTASSIUM 3.5 mmol/L (3.5-5.1)
[2020-04-20 05:32] LABS: TROPONIN-I LEVEL 1.56 ng/mL (<0.06)
[2020-04-20 11:57] VITALS: BP 163/84
[2020-04-20 13:26] LABS: CHOLESTEROL 90 mg/dL (<200); HDL CHOLESTEROL 26 mg/dL (>40); LDL CHOLESTEROL 48 mg/dL (<100); TC:HDL 3.5 Ratio (Not establshd); TRIGLYCERIDE 80 mg/dL (<150); VLDL 16 mg/dL (<40)
[2020-04-20 13:29] LABS: SERUM ASSESSMENT Clear
[2020-04-20 15:53] VITALS: BP 93/69
[2020-04-20 19:25] VITALS: BP 160/72
[2020-04-20 19:37] LABS: CALCIUM 7.8 mg/dL (8.5-10.1); CREATININE 1.7 mg/dL (0.6-1.3); MAGNESIUM 1.8 mg/dL (1.8-2.4); POTASSIUM 3.5 mmol/L (3.5-5.1)
[2020-04-21] VITALS: BP 134/61
[2020-04-21 04:00] VITALS: BP 172/86
[2020-04-21 05:03] LABS: ABSOLUTE MONOCYTES 0.4 thou/uL (0.0-1.2); ABSOLUTE NEUTROPHILS 8.4 thou/uL (1.6-8.1); BASOPHILS 0.1 %; HEMATOCRIT 27.8 % (37.0-47.0); HEMOGLOBIN 9.5 gm/dL (12.0-15.0); LYMPHOCYTES 10.6 %; MCHC 34.3 g/dL (28.0-37.0); MCV 90.5 fL (80.0-100.0); MONOCYTES 3.6 %; MPV 8.4 fl. (7.2-11.1); NUCLEATED RBCS 0 /100WBC; PLATELET COUNT* 319 thou/uL (150-400); POLYS 85.7 %; RBC 3.07 mil/uL (4.20-5.00); RDW-CV 14.3 % (10.5-14.5); WBC 9.8 thou/uL (4.0-11.0)
[2020-04-21 05:29] LABS: ALBUMIN 2.2 g/dL (3.4-5.0); CREATININE 1.7 mg/dL (0.6-1.3); TOTAL BILIRUBIN 0.4 mg/dL (<0.1-1.0); TOTAL PROTEIN 5.3 g/dL (6.4-8.2)
[2020-04-21 05:33] LABS: POTASSIUM 4.6 mmol/L (3.5-5.1)
[2020-04-21 07:47] VITALS: BP 164/74
[2020-04-21 12:48] VITALS: BP 151/69
[2020-04-21 20:00] VITALS: BP 131/77
[2020-04-22] VITALS: BP 95/50
[2020-04-22 05:00] VITALS: BP 98/60
[2020-04-22 05:53] LABS: ABSOLUTE LYMPHOCYTES 0.9 thou/uL (0.8-5.3); ABSOLUTE MONOCYTES 0.9 thou/uL (0.0-1.2); ABSOLUTE NEUTROPHILS 8.9 thou/uL (1.6-8.1); BASOPHILS 0.2 %; HEMATOCRIT 26.3 % (37.0-47.0); HEMOGLOBIN 9.1 gm/dL (12.0-15.0); LYMPHOCYTES 8.6 %; MCH 31.4 pg (26.0-34.0); MCHC 34.5 g/dL (28.0-37.0); MCV 90.9 fL (80.0-100.0); MONOCYTES 8.2 %; MPV 8.6 fl. (7.2-11.1); NUCLEATED RBCS 0 /100WBC; PLATELET COUNT* 331 thou/uL (150-400); RBC 2.89 mil/uL (4.20-5.00); RDW-CV 14.2 % (10.5-14.5); WBC 10.7 thou/uL (4.0-11.0)
[2020-04-22 06:04] LABS: ALBUMIN 2.1 g/dL (3.4-5.0); CALCIUM 8.2 mg/dL (8.5-10.1); CREATININE 1.7 mg/dL (0.6-1.3); POTASSIUM 4.6 mmol/L (3.5-5.1); TOTAL BILIRUBIN 0.3 mg/dL (<0.1-1.0); TOTAL PROTEIN 4.9 g/dL (6.4-8.2)
[2020-04-22 08:28] VITALS: BP 125/53
[2020-04-22] MEDS ORDERED: ASPIR 8181 MG PO (08:49)
[2020-04-22] MEDS ORDERED: CARVEDILOL12.5 MG PO (08:49)
[2020-04-22] MEDS ORDERED: CEFDINIR300 MG PO (08:50)
[2020-04-22 12:32] VITALS: BP 147/64
[2020-04-22 17:00] VITALS: BP 152/65
[2020-04-22 19:25] VITALS: BP 160/72
[2020-04-23] VITALS: BP 99/32
[2020-04-23 04:00] VITALS: BP 105/43
[2020-04-23 08:37] VITALS: BP 126/53
--- NOTE | 2020-04-23 09:40 | CON ---
[address] [address] CONSULTATION Name: RENNY LUCAS Room: [address] IN M.R.#: [id number] Admission: 04/19/20 Attend Phys: Neris Whitfield Discharge: Date of : 37 Report #: [id number] THIS REPORT FOR: cc: Lalo Mohan MD, Todd A. MD ~ Ruth Rodriguez MD DATE OF SERVICE: 04/20/2020 NEPHROLOGY CONSULTATION CONSULTING PHYSICIAN: Jose C Frankel MD REASON FOR NEPHROLOGY CONSULTATION: Acute kidney injury. REASON FOR ADMISSION: Low oxygen saturation. 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 She was also recently found to be positive for COVID-19, a chest x-ray was consistent with COVID-19 pneumonia. Her EKG suggested evidence of acute myocardial infarction and she was taken to the systems testing laboratory technician, but there was no significant coronary artery disease. She does have high blood pressure. She does have significant cognitive impairment. She was given some IV fluids yesterday. Her creatinine on admission was 2.2 and despite cardiac catheterization yesterday, her creatinine has come down to 1.5 today. She does seem to be having a UTI and has been treated for that. Also, being treated for COVID pneumonia as per Pulmonology. She does take lisinopril, [facility]othiazide at the [facility], which is currently on hold because of acute kidney injury and her ejection fraction was found to be 25-30% with wall motion abnormalities, just before the catheterization. Her troponins are steadily trending down. ALLERGIES: No known allergies. REVIEW OF SYSTEMS: As mentioned in history of present illness, I did not physically examine her, so I could not get a detailed review of systems from her. HOME MEDICATIONS: Include metoprolol, alprazolam, dexamethasone, diltiazem, enoxaparin, famotidine, hydrochlorothiazide 25 mg a day, lisinopril 40 mg a day, melatonin, Myrbetriq, hydroxyzine, MiraLax, simvastatin, clonidine. PAST MEDICAL AND SURGICAL HISTORY: Includes hypertension, dyslipidemia, chronic back pain, anxiety, depression, pacemaker, [place] [address] CONSULTATION Name: RENNY LUCAS Room: [address] IN [facility]#: [id number] Admission: 04/19/20 Attend Phys: Neris Whitfield Discharge: Date of : 37 Report #: [id number] FAMILY HISTORY: Noncontributory. SOCIAL HISTORY: She lives at [facility] and no smoking, no recreational drug use and no current alcohol use reported. PHYSICAL EXAMINATION: VITAL SIGNS: Blood pressure is 191/100 reported, temperature reported as 36.2, pulse rate 88, respiratory rate 16, pulse ox 97% on no oxygen, I did not personally physical examine her because of COVID-19 status and positivity and need to limit exposure and preserve PPE in the scope of pandemic. LABORATORY DATA: WBC 7.4, hemoglobin 10.7. Sodium was 141, CO2 was 20, creatinine was 2.5, BUN was 73, which is same as 70 before, creatinine 1.5, better from 2.2 yesterday morning. Other labs are reviewed. IMAGING: Renal ultrasound and chest x-ray were reviewed. ASSESSMENT: 1. Acute kidney injury in the setting of volume depletion, lisinopril, hydrochlorothiazide use and acute myocardial infarction as well as low ejection fraction. Creatinine in 03/2018 was normal at 0.8, do not have a recent baseline creatinine. Creatinine was 2.2 on admission and despite cardiac catheterization yesterday, has come down to 1.5. She did get some IV fluids yesterday, lisinopril, hydrochlorothiazide are on hold. UA shows evidence of UTI, growing Proteus and has been treated for that. Renal ultrasound showed no hydronephrosis, left sided cortical thinning and left kidney could not be visualized properly. Right kidney looks normal. 2. Non-ST elevation myocardial infarction, likely type 2. She had a cardiac catheterization on 04/19/2020. No intervention was needed because there was no significant coronary artery disease as per Cardiology. Her ejection fraction is low at 25-30% with wall motion abnormalities. 3. Mild hypokalemia, it was replaced yesterday and better today. 4. Elevated troponin in the setting of acute myocardial infarction. 5. Hypertension, not controlled. 6. Proteus urinary tract infection. 7. Cognitive impairment. She is a [facility] resident. 8. Has had a pacemaker from the past. 9. COVID-19 pneumonia, being treated for that as per primary team. PLAN: 1. Antibiotics and treatment for COVID pneumonia as per primary team. 2. If she is not eating and drinking well, we will put her on gentle hydration, normal saline 50 [place] [address] CONSULTATION Name: RENNY LUCAS Room: [facility] IN M.R.#: [id number] Admission: 04/19/20 Attend Phys: Neris Whitfield Discharge: Date of : 39 Report #: [id number] 3. Keep lisinopril, hydrochlorothiazide, on hold. 4. Blood pressure is running high, so I have increased Coreg and added hydralazine, which can be up titrated as needed. 5. Kidney function is so far improving and there is nothing else to add from nephrology standpoint, so we will be signing off now, but please call with any questions. <ELECTRONICALLY SIGNED> By: Ruth Rodriguez MD 04/23/20 0940 0828 0923Ruth Rodriguez MD /nt
[2020-04-23 12:51] VITALS: BP 91/53
[2020-04-23 15:35] VITALS: BP 92/53
[2020-04-23 19:45] VITALS: BP 125/46
[2020-04-24] VITALS (8 sets, daily range): BP systolic 67–150; BP diastolic 38–52
[2020-04-24 05:04] LABS: HEMATOCRIT 29.6 % (37.0-47.0); HEMOGLOBIN 9.6 gm/dL (12.0-15.0); MCH 30.1 pg (26.0-34.0); MCHC 32.6 g/dL (28.0-37.0); MCV 92.3 fL (80.0-100.0); MPV 8.8 fl. (7.2-11.1); NUCLEATED RBCS 0 /100WBC; PLATELET COUNT* 362 thou/uL (150-400); RDW-CV 14.7 % (10.5-14.5); WBC 15.6 thou/uL (4.0-11.0)
[2020-04-24 05:34] LABS: ALBUMIN 2.3 g/dL (3.4-5.0); CALCIUM 7.9 mg/dL (8.5-10.1); CREATININE 2.5 mg/dL (0.6-1.3); MAGNESIUM 2.1 mg/dL (1.8-2.4); POTASSIUM 5.1 mmol/L (3.5-5.1); TOTAL BILIRUBIN 0.5 mg/dL (<0.1-1.0); TOTAL PROTEIN 5.2 g/dL (6.4-8.2)
[2020-04-24 06:30] LABS: ABSOLUTE LYMPHOCYTES 0.8 thou/uL (0.8-5.3); ABSOLUTE MONOCYTES 1.6 thou/uL (0.0-1.2); ABSOLUTE NEUTROPHILS 13.3 thou/uL (1.6-8.1)
[2020-04-24 06:31] LABS: LARGE PLATELETS RARE; PLATELET ESTIMATE ADEQUATE
[2020-04-24 06:33] LABS: BURR CELLS 1+
[2020-04-24 12:28] LABS: BE -6.2 mmol/L (-2 to +3); PCO2 VENOUS 31.3 mmHg (41.0-51.0); PO2 VENOUS 27.9 mmHg (35.0-45.0)
[2020-04-24 13:29] LABS: URINE BILIRUBIN NEGATIVE (Negative); URINE BLOOD NEGATIVE (Negative); URINE CLARITY CLEAR; URINE COLOR YELLOW; URINE GLUCOSE-RANDOM NEGATIVE (Negative); URINE KETONES NEGATIVE (Negative); URINE LEUKOCYTES TRACE (Negative); URINE NITRITE NEGATIVE (Negative); URINE PROTEIN NEGATIVE (Negative); URINE SPECIFIC GRAVITY 1.015 (1.005-1.030); URINE UROBILINOGEN 0.2 E.U./dl (0.2-1.0)
[2020-04-24 13:47] LABS: BACTERIA 1-9 Few /HPF (None Seen); CASTS None Seen /LPF (None Seen); CRYSTALS None Seen /LPF (None Seen); SQUAMOUS 0-3 Few /LPF (0-3); URINE RBC 0-2 Rare /HPF (0-2); URINE WBC 0-5 Rare /HPF (0-5)
[2020-04-24 14:51] LABS: CALCIUM 7.8 mg/dL (8.5-10.1); CREATININE 2.9 mg/dL (0.6-1.3); MAGNESIUM 2.2 mg/dL (1.8-2.4); POTASSIUM 5.3 mmol/L (3.5-5.1)
[2020-04-24 22:13] LABS: BE -9.4 mmol/L (-2 to +3); PCO2 23.7 mmHg (35.0-45.0); PO2 87.4 mmHg (75.0-100.0); pH 7.393 (7.340-7.450)
[2020-04-25] VITALS (46 sets, daily range): BP systolic 94–140; BP diastolic 31–68
[2020-04-25 05:31] LABS: HEMATOCRIT 23.5 % (37.0-47.0); HEMOGLOBIN 7.7 gm/dL (12.0-15.0); MCH 30.6 pg (26.0-34.0); MCHC 32.9 g/dL (28.0-37.0); MCV 93.1 fL (80.0-100.0); MPV 8.5 fl. (7.2-11.1); RBC 2.53 mil/uL (4.20-5.00); RDW-CV 14.6 % (10.5-14.5); WBC 13.8 thou/uL (4.0-11.0)
[2020-04-25 05:46] LABS: ALBUMIN 1.8 g/dL (3.4-5.0); CALCIUM 6.8 mg/dL (8.5-10.1); MAGNESIUM 1.9 mg/dL (1.8-2.4); POTASSIUM 4.7 mmol/L (3.5-5.1); TOTAL BILIRUBIN 0.4 mg/dL (<0.1-1.0); TOTAL PROTEIN 4.4 g/dL (6.4-8.2)
--- NOTE | 2020-04-25 12:47 | 2DMMODE ---
[place] [address] 2 D/M-MODE ECHOCARDIOGRAM Name: RENNY LUCAS Room: 001 ADM IN .R.#: [id number] Admission: 04/19/20 Attend Phys: Charles Mari Discharge: Date of : 39 Date of Service: 04/25/20 1246 Report #: [id number] THIS REPORT FOR: cc: Lalo Mohan MD, Todd A. MD Blick,Gerardo Ordonez MD [facility] ~ APPROVED REPORT Study performed: 04/25/2020 10:21:08 EXAM: Limited 2D Echocardiogram Patient Location: In-Patient Room #: [facility] Status: routine BSA: 1.64 HR: 89 bpm BP: 107/43 mmHg Rhythm: NSR Other Information Study Quality: Good Indications Abnormal ECG Elevated Troponin Tricuspid Valve RAP Estimate: 5.00 mmHg TR Peak Gr.: 41.02 mmHg RVSP: 46.00 mmHg PA Pressure: 46.00 mmHg Left Ventricle The left ventricle is normal size. There is normal LV segmental wall motion. There is normal left ventricular wall thickness. The left ventricular systolic function is normal. The left ventricular ejection fraction is within the normal range. LVEF is 60-65%. Right Ventricle The right ventricle is normal size. The right ventricular systolic function is normal. Pacemaker lead is present in the right ventricle. Atria The left atrium size is normal. The right [place] [address] 2 D/M-MODE ECHOCARDIOGRAM Name: RENNY LUCAS Room: [address] IN M.R.#: [id number] Admission: 04/19/20 Attend Phys: Charles Mari Discharge: Date of : 39 Date of Service: 04/25/20 1246 Report #: [id number] Aortic Valve Mild aortic valve sclerosis. Mitral Valve The mitral valve is normal in structure. Tricuspid Valve The tricuspid valve is normal in structure. Pulmonic Valve Pulmonic valve is not well visualized. Great Vessels The aortic root is normal in size. IVC is normal in size and collapses >50% with inspiration. Pericardium There is no pericardial effusion. Small left pleural effusion. <Conclusion> LVEF is 60-65%. Small left pleural effusion. <ELECTRONICALLY SIGNED> By: Gerardo Moreno MD, FACC 04/25/20 1246 1246 124 Gerardo Moreno MD, FACC /INF
[2020-04-25 17:03] LABS: BF RBC <1000 /mm3; TOTAL CELL COUNT 396 /mm3
[2020-04-25 17:08] LABS: SOURCE PLEURAL FLUID
[2020-04-25 17:09] LABS: CLARITY SLIGHTLY HAZY; TOTAL VOLUME 500 ml
[2020-04-25 17:14] LABS: CALCIUM 7.4 mg/dL (8.5-10.1); CREATININE 3.5 mg/dL (0.6-1.3); POTASSIUM 4.7 mmol/L (3.5-5.1)
[2020-04-25 17:34] LABS: ABSOLUTE BASOPHILS 0.1 thou/uL (0.0-0.2); ABSOLUTE LYMPHOCYTES 0.5 thou/uL (0.8-5.3); ABSOLUTE MONOCYTES 0.7 thou/uL (0.0-1.2); ABSOLUTE NEUTROPHILS 11.1 thou/uL (1.6-8.1); BASOPHILS 0.4 %; HEMATOCRIT 22.1 % (37.0-47.0); HEMOGLOBIN 7.2 gm/dL (12.0-15.0); MCH 30.1 pg (26.0-34.0); MCHC 32.8 g/dL (28.0-37.0); MCV 91.7 fL (80.0-100.0); MONOCYTES 5.6 %; MPV 8.1 fl. (7.2-11.1); NUCLEATED RBCS 0 /100WBC; PLATELET COUNT* 260 thou/uL (150-400); RBC 2.41 mil/uL (4.20-5.00); RDW-CV 14.6 % (10.5-14.5); WBC 12.3 thou/uL (4.0-11.0)
[2020-04-25 17:51] LABS: BF POLYS 8 %
[2020-04-25 17:52] LABS: BF LYMPHOCYTES 60 %; BF MONOCYTES 32 %; BF TISSUE 2 /100 WBC
--- NOTE | 2020-04-25 22:13 | CON ---
[address] [address] CONSULTATION Name: RENNY LUCAS Room: [address] IN .R.#: [id number] Admission: 04/19/20 Attend Phys: Neris Whitfield Discharge: Date of : 39 Report #: [id number] THIS REPORT FOR: cc: Lalo Mohan MD, Todd A. MD ~ Joel Segura MD DATE OF SERVICE: 04/19/2020 CONSULT REQUESTED BY: Jose C Frankel MD INDICATION FOR CONSULTATION: Acute respiratory failure secondary to COVID-19, hypoxemic. HISTORY OF PRESENT ILLNESS: An 84-year-old female with past medical history as mentioned below. There is no known history of smoking. The patient does have a previous history of pacemaker and she is a resident of a long-term care facility. The patient had only been recently diagnosed with COVID-19. She was reported to have had desaturations and therefore was transferred to the Emergency Room. She is reported to have initially been saturating 85% on room air and with 2 L of oxygen her O2 saturation improved to 94%. The patient did have a rise in troponin I to 3.23 in the Emergency Room. She had an emergent cardiac catheterization performed. This did not show any coronary artery lesions. The patient's echocardiogram however shows a significantly reduced left ventricular ejection fraction to only 25-30 with a pulmonary artery systolic elevated to 56. The patient's baseline creatinine is 0.8 from 2018. Her creatinine on admission was 2.2, which show she has presumed acute renal failure. Currently, the patient has mild shortness of breath at rest. She is on 2 liters nasal cannula, maintaining O2 saturation in the lower 90s. She does not provide a detailed history. She does have a cough. There is not much sputum. She does not have chest pain. She did not describe any upper respiratory complaints. She has been febrile. She has only mild swelling of lower extremities. She answers to the negative for 12 questions for review of systems; however, provides only a limited history. PAST MEDICAL HISTORY: Status post pacemaker, recent diagnosis of COVID-19, hypertension, hyperlipidemia, chronic back pain, anxiety, depression and thyroid disease. SOCIAL HISTORY: Lifetime nonsmoker. No known history of heavy alcohol use or illegal drug use. CURRENT MEDICATIONS: The list is in [employer], reviewed. HOME MEDICATIONS: List in [employer], [place] [address] CONSULTATION Name: RENNY LUCAS Room: [address]#: [id number] Admission: 04/19/20 Attend Phys: Neris Whitfield Discharge: Date of : 39 Report #: [id number] ALLERGIES: No known drug allergies. FAMILY HISTORY: No pertinent family history. PHYSICAL EXAMINATION: GENERAL: The patient is fully awake; however, provides only a limited history. VITAL SIGNS: Has a pulse of 64 and a blood pressure of 131/74. She is on 2 liters nasal cannula, O2 saturation in fact is in the mid 90s. Respiratory rate is 18. She is afebrile with a temperature of 36.6. She had a fever of 38.1 earlier today. HEENT: Head is normocephalic and atraumatic. NECK: Does not show raised JVP. CHEST: Essentially clear to auscultation. HEART: Regular. There is no murmur. ABDOMEN: Soft and nontender. EXTREMITIES: Lower extremities show no edema and no calf tenderness. SKIN: Dry and intact. NEUROLOGICAL: She did move all extremities bilaterally equally and spontaneously with no focal deficit identified. LABORATORY DATA: The patient's chest x-rays, which do show interstitial infiltrates consistent with COVID-19 as well as a lobar infiltrate in the right lower lobe in [facility] reviewed. The patient's lab work from this morning in [facility] also reviewed. I ordered repeat labs, which are pending at this time. Arterial blood gases in [facility] reviewed. ASSESSMENT AND PLAN: 1. Acute hypoxemic respiratory failure secondary to COVID-19. Recommend continue to titrate oxygen. 2. COVID-19. I agree with steroid as well as remdesivir as currently ordered. If the patient fails to improve, then I suggest having a low threshold of administering convalescent plasma. I will review labs and it is possible that I go ahead and order convalescent plasma for this evening. 3. Acute renal failure/acute systolic congestive heart failure. She is not in any respiratory distress at this time. She does appear to be in acute renal failure. Also, she received IV dye earlier with cardiac catheterization, so I do agree that we should keep her well hydrated. She has fluids running at 125 mL an hour at this time. The patient, however, is also at high risk of developing pulmonary edema as left ventricular ejection fraction is low; therefore, we will need to watch this very closely. If her creatinine trends downwards, then I would cut back on IV fluids. 4. Acute myocardial infarction. I would defer management to the primary service. [address] [address] CONSULTATION Name: RENNY LUCAS Room: [address] IN [facility]#: [id number] Admission: 04/19/20 Attend Phys: Neris Whitfield Discharge: Date of : 39 Report #: [id number] 5. Evaluation for thromboembolic phenomena. She is too high risk to consider a CTA chest. I would, however, like to do venous Dopplers. Thanks for this consultation. <ELECTRONICALLY SIGNED> By: Joel Segura MD 04/25/20 2213 1813 [id number] Segura MD /nt
[2020-04-26] VITALS (68 sets, daily range): BP systolic 91–175; BP diastolic 51–96
[2020-04-26 04:06] LABS: ABSOLUTE LYMPHOCYTES 0.5 thou/uL (0.8-5.3); ABSOLUTE MONOCYTES 0.5 thou/uL (0.0-1.2); ABSOLUTE NEUTROPHILS 10.4 thou/uL (1.6-8.1); BASOPHILS 0.3 %; HEMATOCRIT 20.5 % (37.0-47.0); LYMPHOCYTES 4.2 %; MCHC 33.1 g/dL (28.0-37.0); MCV 90.8 fL (80.0-100.0); MONOCYTES 4.6 %; MPV 8.2 fl. (7.2-11.1); NUCLEATED RBCS 0 /100WBC; PLATELET COUNT* 260 thou/uL (150-400); POLYS 90.9 %; RBC 2.26 mil/uL (4.20-5.00); RDW-CV 14.7 % (10.5-14.5); WBC 11.5 thou/uL (4.0-11.0)
[2020-04-26 04:34] LABS: ALBUMIN 2.8 g/dL (3.4-5.0); CALCIUM 7.4 mg/dL (8.5-10.1); CREATININE 3.4 mg/dL (0.6-1.3); MAGNESIUM 1.9 mg/dL (1.8-2.4); PHOSPHORUS* 6.1 mg/dL (2.5-4.9); POTASSIUM 4.3 mmol/L (3.5-5.1); TOTAL BILIRUBIN 0.6 mg/dL (<0.1-1.0)
[2020-04-26 04:46] LABS: HEMOGLOBIN 6.8 gm/dL (12.0-15.0)
[2020-04-26 09:44] LABS: PCO2 27.6 mmHg (35.0-45.0); PO2 70.1 mmHg (75.0-100.0); pH 7.439 (7.340-7.450)
[2020-04-26 11:07] LABS: BODY FLUID PROTEIN 1.5 g/dL (())
[2020-04-26 17:22] LABS: ABSOLUTE LYMPHOCYTES 0.5 thou/uL (0.8-5.3); ABSOLUTE MONOCYTES 0.5 thou/uL (0.0-1.2); ABSOLUTE NEUTROPHILS 9.8 thou/uL (1.6-8.1); BASOPHILS 0.1 %; HEMATOCRIT 26.6 % (37.0-47.0); LYMPHOCYTES 4.8 %; MCH 30.8 pg (26.0-34.0); MCHC 34.3 g/dL (28.0-37.0); MCV 89.8 fL (80.0-100.0); MONOCYTES 4.3 %; MPV 7.8 fl. (7.2-11.1); NUCLEATED RBCS 0 /100WBC; PLATELET COUNT* 270 thou/uL (150-400); POLYS 90.8 %; RBC 2.96 mil/uL (4.20-5.00); WBC 10.8 thou/uL (4.0-11.0)
[2020-04-26 17:24] LABS: CALCIUM 7.6 mg/dL (8.5-10.1); CREATININE 3.4 mg/dL (0.6-1.3); MAGNESIUM 1.9 mg/dL (1.8-2.4)
[2020-04-26 17:26] LABS: HEMOGLOBIN 9.1 gm/dL (12.0-15.0)
[2020-04-27] VITALS (43 sets, daily range): BP systolic 113–180; BP diastolic 45–127
[2020-04-27 06:43] LABS: HEMATOCRIT 25.8 % (37.0-47.0); HEMOGLOBIN 8.7 gm/dL (12.0-15.0); MCH 30.4 pg (26.0-34.0); MCHC 33.9 g/dL (28.0-37.0); MCV 89.8 fL (80.0-100.0); MPV 7.9 fl. (7.2-11.1); NUCLEATED RBCS 0 /100WBC; PLATELET COUNT* 273 thou/uL (150-400); RBC 2.87 mil/uL (4.20-5.00); RDW-CV 14.5 % (10.5-14.5); WBC 14.2 thou/uL (4.0-11.0)
[2020-04-27 07:02] LABS: ALBUMIN 2.5 g/dL (3.4-5.0); CALCIUM 7.7 mg/dL (8.5-10.1); CREATININE 3.6 mg/dL (0.6-1.3); POTASSIUM 3.8 mmol/L (3.5-5.1); TOTAL BILIRUBIN 0.7 mg/dL (<0.1-1.0); TOTAL PROTEIN 4.8 g/dL (6.4-8.2)
[2020-04-27 09:43] LABS: ABSOLUTE NEUTROPHILS 13.2 thou/uL (1.6-8.1); PLATELET ESTIMATE ADEQUATE
--- NOTE | 2020-04-27 17:06 | PATH ---
[address] [address] PATHOLOGY RPT PROCEDURE Name: RENNY LUCAS Room: [address] IN [facility]#: [id number] Admission: 04/19/20 Date of : 39 Discharge: Report #: [id number] Path Case #: [id number] Note [facility] Accession Number: [id number] TESTS RESULT FLAG UNITS REF RANGE LAB Clinician Provided Cytology Information No. of containers..01 Other (Miscellaneous) Source: LEFT PLEURAL DIAGNOSIS: 02 LEFT PLEURAL NEGATIVE FOR MALIGNANT CELLS. FEW MESOTHELIAL CELLS AND INFLAMMATORY CELLS. THIS INTERPRETATION INCLUDES EVALUATION OF A CELL BLOCK. Signed out by: 02 Carlo Pickering MD, Pathologist NPI- [id number] Performed by: 01 Marisol Steele, [employer] Bro[employer] ([facility]) Gross description: 01 5ML, CLEAR YELLOW, 1 TP 1 CB /LCS 04/26/2020 1443 Local FLAG LEGEND: L-Low Normal,H-High Normal,LL-Alert Low,HH-Alert High <-Panic Low,>-Panic High,A-Abnormal,AA-Critical Abnormal Performed at: [address] [place] [address] Efren Miller MD, [address] [place] [address] [facility], [place] [address] Carlo Pickering MD, Specimen Comment: A courtesy copy of this report has been sent to [phone], [phone] Specimen Comment: [phone], Specimen Comment: Report sent to ,DR LUNA / DR PROCTOR Specimen Comment: A duplicate report has been generated due to demographic updates. Performed at: [address], [place], [place] [id number] MD Efren Miller MD Phone: [phone]
[2020-04-28 09:00] VITALS: BP 159/68
[2020-04-28] MEDS ORDERED: LORAZEPAM I2 MG/1 ML PO ×2 (09:58→12:36)
[2020-04-28] MEDS ORDERED: MSL20MG/ML PO ×2 (09:58→12:36)
== END 2020-04-28 17:18 | disposition hospice, home (50) | DRG 871 ==
LOC: M.ERS 00:54 → M.ICU 04:04 → M.TBA-ER 04:04 → M.ORTHSURG 04:04 → M.TBA-ER 06:35 → M.ORTHSURG 08:47 → M.ICU 04-24 21:52 → M.ORTHSURG 04-27 18:31
PROVIDERS: Family Medicine; Internal Medicine; Internal Medicine Cardiovascular Disease; Internal Medicine Critical Care Medicine; Personal Emergency Response Attendant; Registered Nurse; ADMIT Internal Medicine; ATTEND Internal Medicine
PROC: B211YZZ Fluoroscopy of Multiple Coronary Arteries using Other Contrast (ICD-10-PCS; 2020-04-19)
PROC: 02HV33Z Insertion of Infusion Device into Superior Vena Cava, Percutaneous Approach (ICD-10-PCS; 2020-04-19)
PROC: XW033E5 Introduction of Remdesivir Anti-infective into Peripheral Vein, Percutaneous Approach, New Technology Group 5 (ICD-10-PCS; 2020-04-19)
PROC: 4A023N7 Measurement of Cardiac Sampling and Pressure, Left Heart, Percutaneous Approach (ICD-10-PCS; 2020-04-19)
PROC: 5A0935A Assistance with Respiratory Ventilation, Less than 24 Consecutive Hours, High Flow/Velocity Cannula (ICD-10-PCS; principal; 2020-04-21)
PROC: 5A0935A Assistance with Respiratory Ventilation, Less than 24 Consecutive Hours, High Flow/Velocity Cannula (ICD-10-PCS; 2020-04-23)
PROC: 5A0935A Assistance with Respiratory Ventilation, Less than 24 Consecutive Hours, High Flow/Velocity Cannula (ICD-10-PCS; 2020-04-24)
PROC: 5A0935A Assistance with Respiratory Ventilation, Less than 24 Consecutive Hours, High Flow/Velocity Cannula (ICD-10-PCS; 2020-04-25)
PROC: 0W9B3ZZ Drainage of Left Pleural Cavity, Percutaneous Approach (ICD-10-PCS; 2020-04-25)
PROC: 5A09357 Assistance with Respiratory Ventilation, Less than 24 Consecutive Hours, Continuous Positive Airway Pressure (ICD-10-PCS; 2020-04-26)
PROC: 30233N1 Transfusion of Nonautologous Red Blood Cells into Peripheral Vein, Percutaneous Approach (ICD-10-PCS; 2020-04-26)
PROC: 5A0935A Assistance with Respiratory Ventilation, Less than 24 Consecutive Hours, High Flow/Velocity Cannula (ICD-10-PCS; 2020-04-26)
PROC: 5A09357 Assistance with Respiratory Ventilation, Less than 24 Consecutive Hours, Continuous Positive Airway Pressure (ICD-10-PCS; 2020-04-27)
DX: A41.89 Other specified sepsis (principal); U07.1 COVID-19; I21.3 ST elevation (STEMI) myocardial infarction of unspecified site; J12.82 Pneumonia due to coronavirus disease 2019; J96.01 Acute respiratory failure with hypoxia; I50.21 Acute systolic (congestive) heart failure; N17.0 Acute kidney failure with tubular necrosis; G93.41 Metabolic encephalopathy; R57.0 Cardiogenic shock; N39.0 Urinary tract infection, site not specified; I42.8 Other cardiomyopathies; I13.0 Hypertensive heart and chronic kidney disease with heart failure and stage 1 through stage 4 chronic kidney disease, or unspecified chronic kidney disease; E78.5 Hyperlipidemia, unspecified; G89.29 Other chronic pain; M54.9 Dorsalgia, unspecified; F41.9 Anxiety disorder, unspecified; E86.0 Dehydration; F32.9 Major depressive disorder, single episode, unspecified; E87.6 Hypokalemia; N18.9 Chronic kidney disease, unspecified; G31.84 Mild cognitive impairment of uncertain or unknown etiology; D64.9 Anemia, unspecified; I72.8 Aneurysm of other specified arteries; E11.22 Type 2 diabetes mellitus with diabetic chronic kidney disease; B96.4 Proteus (mirabilis) (morganii) as the cause of diseases classified elsewhere; Z51.5 Encounter for palliative care; Z79.899 Other long term (current) drug therapy; Z95.0 Presence of cardiac pacemaker; Z28.21 Immunization not carried out because of patient refusal